=== PATIENT | female | born 1950 | race Caucasian/White ===

== ENCOUNTER 2024-03-31 05:35 | Inpatient (IN) | payer MEDICARE, OTHER, SELFPAY ==
[2024-03-31] VITALS (36 sets, daily range): BP systolic 120–209; BP diastolic 66–172; PULSE 56–87; RESP 12–25; TEMP 36.6; O2SAT 91–100; BMI 39.4
--- NOTE | ~2024-03-31 | MR_ITS ---
MRI of the brain Clinical History: TIA Technique: Axial and sagittal T1-weighted images were acquired. These were followed by axial T2-weigh ann, diffusion weighted, gradient, and FLAIR images. Following intravenous administration of 20 cc Mu ltiHance gadolinium, T1-weighted fat-sat imaging was performed in the axial and coronal planes. Findings: There is a small focal area of restricted diffusion at the posterior most aspect of the rig ht basal ganglia region, compatible small focal acute infarct. There are mild background chronic micr ovascular ischemic changes in the periventricular white matter. No intracranial hemorrhage. Ventricles and subarachnoid spaces are unremarkable. Orbits are unremarkable. Paranasal sinuses and m astoid air cells are clear. Major intracranial flow voids are intact. Sagittal midline structures are intact. Postcontrast images demonstrate possible small meningioma at the left frontal convexity measuring 7 m m. IMPRESSION: Small focal acute infarct at the posterior most aspect of the right basal ganglia region. Probable 7 mm left frontal convexity meningioma. Mild chronic microvascular ischemic changes. Reviewed, dictated and finalized at location M. NG HANGER SUPERVISOR IMPRESSION: Small focal acute infarct at the posterior most aspect of the right basal gangl ia region. Probable 7 mm left frontal convexity meningioma. Mild chronic microvascular ischemic changes.
--- NOTE | ~2024-03-31 | CT_ITS ---
CTA brain carotid Ordering provider: Marcus Castle MD History: . dizziness/tia . Comparison: None. Technique: CT angiogram head and neck was performed following timed intravenous injection of contrast . Thin slice axial images and reformatted coronal images were obtained. Three dimensional reformatted images of the brain were also obtained using a [employer] workstation. Radiation reduction technique ut ilized.The dose-length product was 1766.42 mGy-cm. 100 mL Omnipaque 350 was given IV. FINDINGS: HEAD: --ANTERIOR AND MIDDLE CEREBRAL ARTERIES AND BRANCHES: Normal caliber and contour. --INTERNAL CAROTID ARTERIES: Mild atheromatous disease but no significant stenosis. No occlusion. --BASILAR ARTERY AND BRANCHES: Normal caliber and contour. No atheromatous disease. --POSTERIOR CEREBRAL ARTERIES: Normal caliber and contour --POSTERIOR COMMUNICATING ARTERIES: Not visualized which is probably related to congenital absence or small size. --ANEURYSM: None visualized. --BRAIN: Normal. --BONES AND SUPERFICIAL SOFT TISSUES: Normal. --PARANASAL SINUSES AND MASTOIDS: Normal NECK: --RIGHT CERVICAL CAROTID SYSTEM: Normal caliber and contour. Percent stenosis per NASCET criteria is 0%. No carotid dissection. Otherwise, no significant atheromatous disease or stenosis of the cervica l carotid system. --LEFT CERVICAL CAROTID SYSTEM: Normal caliber and contour. Percent stenosis per NASCET criteria is 0%. No carotid dissection. Otherwise, no significant atheromatous disease or stenosis of the cervical carotid system. --VERTEBRAL ARTERIES: Slight narrowing in segment 3 is noted. Otherwise, Normal caliber and contour. --VISUALIZED AORTIC ARCH AND BRANCHING VESSELS: Mild atheromatous disease but no significant stenosis . --SOFT TISSUES: Normal. --CERVICAL SPINE: Age appropriate degenerative changes. IMPRESSION: 1. Normal CTA head and neck. Percent stenosis per NASCET criteria is 0%. 2. Very mild narrowing of the right vertebral artery segment 3. Reviewed, dictated and finalized at location A. OL COMMISSIONER
--- NOTE | ~2024-03-31 | XR_ITS ---
EXAMINATION: XR chest 1V DATE: 03/31/2024 06:59 INDICATION: Weakness. TECHNIQUE: A single frontal view of the chest was obtained. COMPARISON: Chest 2 views 10/03/2008 FINDINGS: There is no pneumonia, pleural effusion, or pneumothorax. Cardiomegaly is noted. IMPRESSION: 1. Cardiomegaly. Reviewed, dictated and finalized at location A. R SOFTENER SERVICE SUPERVISOR IMPRESSION: 1. Cardiomegaly.
--- NOTE | 2024-03-31 05:45 | ECG_ITS ---
Test Date: 2024-03-31 05:53:39 Measurements Intervals [place] Rate: 63 P: 0 VA: 0 QRS: 73 QRSD: 94 T: 102 QT: 416 QTc: 429 Interpretive Statements ATRIAL FIBRILLATION NONSPECIFIC T-WAVE ABNORMALITY ABNORMAL ECG Electronically Signed On 03-31-2024 10:50:21 FLIPPING MACHINE OPERATOR by Khoi Simpson M.D.
[2024-03-31 06:19] LABS: Basophils Percent Auto 0.4 % (0.2-1.2); Eosinophils Absolute Auto 0.1 K/mm3 (0-0.3); Eosinophils Percent Auto 1.7 % (0-4.4); Hematocrit 40.8 % (37.0-47.0); Hemoglobin 13.3 g/dL (12.0-15.0); Immature Granulocyte Absolute 0.01 K/mm3 (0.00-0.031); Immature Granulocyte Percent A 0.2 % (0-0.5); Lymphocytes Absolute Auto 1.05 K/mm3 (0.9-3.2); Lymphocytes Percent Auto 19.3 % (18.3-44.2); Mean Corpuscular HGB Conc 32.6 g/dl (32-36); Mean Corpuscular Hemoglobin 30.6 pg (26-34); Mean Corpuscular Volume 93.8 fl (80-100); Mean Platelet Volume 9.2 fl (7.4-10.4); Monocytes Absolute Auto 0.4 K/mm3 (0.1-0.6); Monocytes Percent Auto 7.5 % (2.6-8.5); Neutrophils Absolute Auto 3.9 K/mm3 (1.3-6.7); Neutrophils Percent Auto 70.9 % (45.5-73.1); Platelet Count Result 183 k/mm3 (150-375); Red Blood Count 4.35 M/mm3 (4.2-5.4); Red Cell Distribution Width 13.9 % (11.5-14.5); White Blood Count 5.4 K/mm3 (4.5-10.0)
[2024-03-31 06:30] LABS: Alanine Aminotransferase 19 U/L (6-35); Albumin Level 4.1 g/dL (3.5-5.1); Alkaline Phosphatase 66 U/L (38-126); Anion Gap 6 mmol/L (4-12); Aspartate Amino Transferase 25 U/L (14-36); Bilirubin,Total 1.1 mg/dL (0.2-1.3); Blood Urea Nitrogen 19 mg/dL (7-17); Calcium 9.7 mg/dL (8.4-10.2); Carbon Dioxide 32 mmol/L (22-30); Chloride 102 mmol/L (98-107); Estimated CRCL calculation 77 ml/min; Estimated Glomerular Filt Rate > 60; Glucose 121 mg/dL (65-110); Potassium 3.5 mmol/L (3.4-5.0); Sodium 140 mmol/L (137-145)
--- NOTE | 2024-03-31 10:39 | ED.GENADULT ---
HPI - General Adult General Chief complaint: Dizziness Stated complaint: unbalanced/vomiting around 2200 Time Seen by Provider: 03/31/24 09:03 History of Present Illness HPI narrative: Patient is a 74-year-old female who presents ER with dizziness. Began last night at 10:00 p.m. after using a rowing machine. She feels unsteady like she cannot walk straight. Symptoms have since resolved. No slurred speech. Reports compliance with home antihypertensive medication. EKG shows atrial fibrillation patient has no history of AFib. No history of previous CVA. Related Data Home Medications ?Medication ?Instructions ?Recorded ?Confirmed ?Last Taken ?Type aspirin 81 mg chewable tablet 81 mg PO DAILY 03/31/24 03/31/24 Unknown History latanoprost 0.005 % eye drops 1 drp EACH EYE QPM 03/31/24 03/31/24 03/30/24 History timolol maleate 0.5 % eye drops 1 drp EACH EYE QAM 03/31/24 03/31/24 03/30/24 History triamterene 37.5 1 cap PO .QD 03/31/24 03/31/24 03/30/24 History mg-hydrochlorothiazide 25 mg capsule Allergies Allergy/AdvReac Type Severity Reaction Status Date / Time PENCILLIN Allergy Mild Other Uncoded 03/31/24 17:14 Review of Systems Review of Systems: All systems reviewed & are unremarkable except as noted in HPI and below Constitutional: Constitutional: Reports no additional constitutional complaints ENT: Reports system reviewed and no additional complaints, except as documented Cardiovascular: Cardiovascular: Reports no additional cardiovascular complaints Respiratory: Respiratory: Reports no additional respiratory complaints Gastrointestinal: Gastrointestinal: Reports no additional gastrointestinal complaints Neurologic: Reports system reviewed and no additional complaints, except as documented [facility]LY [facility] Past Medical History Medical History (Updated 03/31/24 @ 19:51 by Marcus Castle MD) Dizziness Pneumonia Obesity Family History Family History Sibling Family history of diabetes mellitus in first degree relative Father Lung cancer Mother Heart disease Social History Social History Smoking packs per day: 1 Smoking cigarettes per day: 20.0 Smoking status: Former smoker Tobacco type: cigarettes Second hand tobacco smoke exposure: Yes Alcohol intake: current Substance use: never Do You Feel Safe in your Home?: Yes Lack of Transportation: No Lack of Food: Never True Current Housing: I Do Not Have Housing Concerned About Future Housing: No Difficulty Paying Gas/Electric Bills: No Difficulty Paying for Meds: No Currently Unemployed: No Education: Decline to Answer Difficulty w/ Childcare or Family Care: No Spiritual care concerns: No Exam Narrative: GENERAL: Well-appearing, well-nourished, and in no acute distress. HEAD: Normocephalic, atraumatic. EYES: PERRL and EOMI. ENT: Mucous membranes moist. NECK: Supple. CHEST: Clear to auscultation. No respiratory distress. HEART: Irregular irregular rate and rhythm. Normal peripheral pulses. ABDOMEN: Soft, nontender, nondistended. EXTREMITIES: Normal range of motion. No edema. SKIN: Warm, dry, no rash. NEURO: NIH stroke scale 0. No upper lower extremity drift. Normal finger-nose testing and [id number] testing. No facial droop. Clear speech without expressive aphasia. Alert and oriented x3. PSYCH: Normal mood and affect. Course Course Emergency Course: Suspect TIA with new AFib. Admit to hospitalist service. Neurology and Cardiology consulted. Patient given Lovenox for anticoagulation. No LVO. No acute bleed. Vital Signs Vital signs: Vital Signs Temperature 97.9 F 03/31/24 05:39 Pulse Rate 67 03/31/24 05:39 Respiratory Rate 17 03/31/24 05:39 Blood Pressure 186/86 H 03/31/24 05:39 Pulse Oximetry 98 03/31/24 05:39 Oxygen Delivery Room Air 03/31/24 05:39 Temperature 97.9 F 03/31/24 05:39 Pulse Rate 63 03/31/24 14:45 Respiratory Rate 16 03/31/24 14:45 Blood Pressure 178/80 H 03/31/24 14:31 Pulse Oximetry 95 03/31/24 14:45 Oxygen Delivery Room Air 03/31/24 17:52 Medical Decision Making Vital Signs Vital Signs: Vital Signs Temperature 97.9 F 03/31/24 05:39 Pulse Rate 67 03/31/24 05:39 Respiratory Rate 17 03/31/24 05:39 Blood Pressure 186/86 H 03/31/24 05:39 Pulse Oximetry 98 03/31/24 05:39 Oxygen Delivery Room Air 03/31/24 05:39 Temperature 97.9 F 03/31/24 05:39 Pulse Rate 63 03/31/24 14:45 Respiratory Rate 16 03/31/24 14:45 Blood Pressure 178/80 H 03/31/24 14:31 Pulse Oximetry 95 03/31/24 14:45 Oxygen Delivery Room Air 03/31/24 17:52 Lab Data 03/31/24 06:00 03/31/24 06:00 Labs: Lab Results 03/31/24 03/31/24 Range/Units 06:00 11:10 WBC 5.4 (4.5-10.0) K/mm3 RBC 4.35 (4.2-5.4) M/mm3 Hgb 13.3 (12.0-15.0) g/dL Hct 40.8 (37.0-47.0) % MCV 93.8 (80-100) fl MCH 30.6 (26-34) pg MCHC 32.6 (32-36) g/dl RDW 13.9 (11.5-14.5) % Plt Count 183 (150-375) k/mm3 MPV 9.2 (7.4-10.4) fl Immature Gran % (Auto) 0.2 (0-0.5) % Neut % (Auto) 70.9 (45.5-73.1) % Lymph % (Auto) 19.3 (18.3-44.2) % [place] % (Auto) 7.5 (2.6-8.5) % Eos % (Auto) 1.7 (0-4.4) % Baso % (Auto) 0.4 (0.2-1.2) % Lymph # (Auto) 1.05 (0.9-3.2) K/mm3 [place] # (Auto) 0.4 (0.1-0.6) K/mm3 Eos # (Auto) 0.1 (0-0.3) K/mm3 Baso # (Auto) 0.0 (0.0-0.1) K/mm3 Abs Immat Gran (auto) 0.01 (0.00-0.031) K/mm3 Absolute Neuts (auto) 3.9 (1.3-6.7) K/mm3 Absolute Nucleated RBC 0.000 (0.0-0.012) K/mm3 Nucleated RBC % 0.0 (0.0-0.2) % Sodium 140 (137-145) mmol/L Potassium 3.5 (3.4-5.0) mmol/L Chloride 102 (98-107) mmol/L Carbon Dioxide 32 H (22-30) mmol/L Anion Gap 6 (4-12) mmol/L BUN 19 H (7-17) mg/dL Creatinine 0.70 (0.7-1.0) mg/dL Estim Creat Clear Calc 77 ml/min Estimated GFR > 60 (59 - ) Glucose 121 H (65-110) mg/dL Calcium 9.7 (8.4-10.2) mg/dL Total Bilirubin 1.1 (0.2-1.3) mg/dL AST 25 (14-36) U/L ALT 19 (6-35) U/L Alkaline Phosphatase 66 (38-126) U/L Total Protein 7.0 (6.3-8.2) g/dL Albumin 4.1 (3.5-5.1) g/dL Urine Color Yellow (Yellow) Urine Appearance Cloudy H (Clear) Urine pH 7.0 (5.0-9.0) Ur Specific [place] 1.014 (1.001-1.035) Urine Protein Negative (Negative) mg/dL Urine Glucose (UA) Negative (Negative) mg/dL Urine Ketones 1+ H (Negative) mg/dL Ur Blood (Man) Negative (Negative) Urine Nitrate Negative (Negative) Urine Bilirubin Negative (Negative) Urine Urobilinogen 0.2 (<2.0) mg/dL Leukocyte Esterase Rfl Negative (Negative) MARZENA/UL Urine RBC 0-2 (0-2) /hpf Urine WBC 0-5 (0-3) /hpf Ur Squamous Epith Cells None seen (Few) /hpf Urine Bacteria None seen /hpf Urine Casts 0-2 Imaging Data Radiologist's impression: ITS Impressions Chest X-Ray 03/31/24 07:01 IMPRESSION: 1. Cardiomegaly. ECG Data EKG #1: ECG completion date: 03/31/24 ECG completion time: 05:53 EKG Interpretation: normal rate (63), non-specific ST changes, normal QRS, normal QT and NL axis Discharge Plan Discharge Clinical Impression: TIA (transient ischemic attack), Afib Patient Disposition: Still a Patient Condition: Stable Quality Stroke Scale Stroke Scale 1: 1a Level of consciousness: alert-0 1b Level of consciousness questions: answers both correctly-0 1c Level of consciousness commands: obeys both correctly-0 2 Best gaze: normal-0 3 Visual: no visual loss-0 4 Facial palsy: normal-0 5a Motor: left arm: no drift-0 5b Motor: right arm: no drift-0 6a Motor: left leg: no drift-0 6b Motor: right leg: no drift-0 7 Limb ataxia: absent-0 8 Sensory: normal-0 9 Best language: no aphasia-0 10 Dysarthria: normal-0 11 Extinction and inattention: no abnormality-0 Level:: 0
[2024-03-31] MEDS: TRIAMTERENE 37.5 MG/HCTZ 25 MG (MAXZIDE) TABLET 1 TAB PO (11:02)
[2024-03-31] MEDS: ENOXAPARIN 120 MG/0.8 ML SYRINGE 118 MG SUB-Q (11:03)
[2024-03-31 11:19] LABS: Add Urine Microscopic? YES; Appearance Urine Cloudy (Clear); Bacteria Urine None Seen /hpf; Bilirubin Urine Negative (Negative); Blood Urine Negative (Negative); Color Urine Yellow (Yellow); Glucose Urine UA Negative (Negative); Ketones Urine 1+ mg/dL (Negative); Leukocyte Esterase Ur Negative LEU/UL (Negative); Nitrate Urine Negative (Negative); Non Pathogenic Casts 0-2; Protein Urine Negative (Negative); RBC Urine 0-2 /hpf (0-2); Specific Grav Ur 1.014 (1.001-1.035); Squamous Epithelial Cell Urine None Seen /hpf (Few); Urobilinogen Urine 0.2 mg/dL (<2.0); WBC Urine 0-5 /hpf (0-3)
--- NOTE | 2024-03-31 12:44 | P.HP_ITS ---
H&P: HPI History of Present Illness Date/Time: 03/31/24 12:44 Chief Complaint: Dizziness Narrative: 74-year-old female past medical history of obesity presents the hospital with dizziness. Patient was working put at home when she became extremely dizzy and had trouble with her balance. She states that she has home hold onto batista while she was walking. She states that she checked her heart rate and blood pr essure last night she said her heart rate was 52. This morning she did not feel any better and still had trouble walking so she presents to the hospital. Laboratory work in the ED is within normal limits, chest x-ray no acute process, head CTA and neck negative for stroke. EKG shows atrial fibrillation at a rate of 63. Cardiology and Neurology consulted. Review of Systems Review of Systems: 12 systems were reviewed and are negativ e except for as per HPI. [facility] Past Medical History Medical History (Updated 03/31/24 @ 15:25 by Jessie George, JUMP IRON MACHINE PRESSER) Pneumonia Obesity Family History Family History (Updated 10/17/15 @ 23:19 by DOCTOR UNKNOWN) Sibling Family history of diabetes mellitus in first degree relative Social History Social History Alcohol intake: never Comments x3 Meds Home Medications and Allergies Allergies Allergy/AdvReac Type Severity Reaction Status Date / Time PENCILLIN Allergy Mild Other Uncoded 03/31/24 09:35 Vital Signs Vital Signs - 24 hr 03/31/24 05:39 03/31/24 09:11 03/31/24 11:09 Temperature 97.9 F Pulse Rate 67 70 67 Respiratory Rate 17 15 19 Blood Pressure 186/86 H 197/141 H 152/91 H Pulse Oximetry 98 99 99 Oxygen Delivery Room Air Exam Narrative: General: well appearing, appears stated age. HEENT: normocephalic, atraumatic. Mucous membranes moist. EOMI, PERRLA, b ilateral sclera anicteric, no conjunctival injection. Neck supple without JVD, lymphadenopathy, or bruit. Respiratory: clear to ascultation bilaterally. No rales/rhonic/wheezes. Cardiovascular: Irregularly rate and rhythm, normal S1-S2 upon ascultation. No murmurs, rubs, or clicks. PMI is nondisplaced, capillary refill less than 3 second. Abdomen: Soft, round, no pulsatile masses, nondistended and nontender. No rebound, no guarding. No CVA tenderness, no hepatosplenomegaly. Bowel sounds present to all four quadrants. No high pitch or tinkling sounds, resonant to percussion. Extremities: No cyanosis, clubbing, or edema present. Pulses are palpable 2/2. Active ROM to all four extremities. Neuro: Alert and orientated x 4. PERRLA. Cranial nerves 2-12 intact without focal deficit. Skin: Warm, dry, and intact, without rash, erythema, or lesion. Psych: pleasant, cooperative, normal speech, normal affect, no hallucinations, no dysarthia H&P: Results Labs Labs: Short CBC 03/31/24 Range/Units 06:00 WBC 5.4 (4.5-10.0) K/mm3 Hgb 13.3 (12.0-15.0) g/dL Hct 40.8 (37.0-47.0) % Plt Count 183 (150-375) k/mm3 BMP 03/31/24 06:00 Sodium 140 Potassium 3.5 Chloride 102 Carbon Dioxide 32 H BUN 19 H Creatinine 0.70 Glucose 121 H Calcium 9.7 Liver Function 03/31/24 Range/Units 06:00 Total Bilirubin 1.1 (0.2-1.3) mg/dL AST 25 (14-36) U/L ALT 19 (6-35) U/L Alkaline Phosphatase 66 (38-126) U/L Albumin 4.1 (3.5-5.1) g/dL Urine 03/31/24 Range/Units 11:10 Urine Color Yellow (Yellow) Urine Appearance Cloudy H (Clear) Urine pH 7.0 (5.0-9.0) Ur Specific [place] 1.014 (1.001-1.035) Urine Protein Negative (Negative) mg/dL Urine Glucose (UA) Negative (Negative) mg/dL Assessment and Plan Assessment and plan (1) Afib: Code(s): I48.91 - Unspecified atrial fibrillation Status: Acute Assessment and Plan: No history of AFib Rate controlled Cardiology consulted Telemetry monitoring Weight based Lovenox (2) TIA (transient ischemic attack): Code(s): G45.9 - Transient cerebral ischemic attack, unspecified Status: Acute Assessment and Plan: Possible TIA Neurology consulted MRI brain pending Weight based Lovenox Quality VTE Prophylaxis VTE prophylaxis: mechanical ordered and pharmacologic ordered Patient states that she does not take prescription medications only takes vitamins. Hospitalist MIPS Advance Care Plan I have confirmed that the patient's Advanced Care Plan is present, code status is documented, or surrogate decision maker is listed in patient medical record.: Yes Medication Reconciliation I have utilized all available resources to obtain, update and review the patients current medications (includes all prescriptions, OTC, herbals, cannabis, and nutritional supplements).: Yes
--- NOTE | 2024-03-31 15:14 | PC.NURSE ---
This patient, Allyson Gonsalves, was admitted to [facility] Surg Room 329-01 at 1514. Patient/family oriented to hospital policies and general routines including ID bracelet, bed and alarms, visiting hours, pain management, procedures, bathroom and other care routines, personal items, smoking policy, room service/diet, and visiting hours. Information on how to activate the Rapid Response Team has been discussed. Patient/Family are encouraged to report perceived risks to care and to ask questions if they do not understand what they are told or what they should do.
--- NOTE | 2024-03-31 17:19 | PC.NURSE ---
On 04/01/24, the KINDERGARTEN TUTOR, [Keisha Wilcox ], provided care and completed [facility] documentation on this patient. I have reviewed the KINDERGARTEN TUTOR's documentation and agree with the findings.
--- NOTE | 2024-03-31 18:16 | WPDNEURCNPN ---
Assessment and Plan Assessment and plan (1) Dizziness: Code(s): R42 - Dizziness and giddiness Status: Acute (2) Afib: Code(s): I48.91 - Unspecified atrial fibrillation Status: Acute Plan possibility of brainstem stroke with onset of atrial fibrillation leading to embolization could be a consideration. We should also check her serum lipid profile. Attention to atrial fibrillation as per the Cardiology on hospitalist Service. At present the patient is on Lovenox Consult date: 03/31/24 HPI: Allyson Gonsalves is a 74 year old female who presented to the hospital with onset of dizziness which started was was working on a rowing machine around 10 30 at night. She waited for the night and around 530 in the morning since coming to the hospital with her and during that time she vomited twice. She still feels as if his she is swimming in the air when she walks other than that she is overall doing better. No headache diplopia or difficulty swallowing. No weakness in upper lower limbs. She never had symptoms such as this in the past. She has been found to have atrial fibrillation. . Atrial fibrillation is of new onset. CT angiogram head and neck was performed which did not show any abnormalities. Review of Systems Constitutional: Constitutional: Denies chills, Denies fever(s) and Reports weight loss Comments: The patient has been on ketogenic diet for some time and he is trying to lose some weight Eyes: Eyes: Denies diplopia and Denies loss of vision ENT: Reports dizziness, Denies hearing loss and Denies tinnitus Cardiovascular: Cardiovascular: Denies chest pain, Denies syncope and Denies dyspnea Respiratory: Respiratory: Denies cough, Denies dyspnea and Denies wheezing Gastrointestinal: Gastrointestinal: Denies abdominal pain, Denies change in bowel habits and Denies vomiting Genitourinary: Genitourinary: Denies urinary incontinence Musculoskeletal: Musculoskeletal: Denies arthralgias and Denies joint swelling Integumentary/Breasts: Skin/Breast: Denies new lesions and Denies rash Neurologic: Reports as per HPI, Denies dizziness, Denies syncope and Denies loss of vision Psychiatric: Psychiatric: Denies anxiety and Denies depression Endocrine: Endocrine: Denies cold intolerance and Denies heat intolerance Hematologic/Lymphatic: Hematologic/Lymphatic: Denies easy bleeding and Denies easy bruising Allergic/Immunologic: Allergic/Immunologic: Denies no additional allergic/immunologic complaints and Denies wheezing [facility] Past Medical History Medical History (Updated 03/31/24 @ 18:20 by Zeyad Smith MD) Dizziness Pneumonia Obesity Family History Family History Sibling Family history of diabetes mellitus in first degree relative Father Lung cancer Mother Heart disease Social History Social History Smoking packs per day: 1 Smoking cigarettes per day: 20.0 Smoking status: Former smoker Tobacco type: cigarettes Second hand tobacco smoke exposure: Yes Alcohol intake: current Substance use: never Do You Feel Safe in your Home?: Yes Lack of Transportation: No Lack of Food: Never True Current Housing: I Do Not Have Housing Concerned About Future Housing: No Difficulty Paying Gas/Electric Bills: No Difficulty Paying for Meds: No Currently Unemployed: No Education: Decline to Answer Difficulty w/ Childcare or Family Care: No Spiritual care concerns: No Meds Home Medications and Allergies Home Medications ?Medication ?Instructions ?Recorded ?Confirmed ?Type latanoprost 0.005 % eye drops 1 drp EACH EYE QPM 03/31/24 03/31/24 History timolol maleate 0.5 % eye drops 1 drp EACH EYE QAM 03/31/24 03/31/24 History triamterene 37.5 1 cap PO .QD 03/31/24 03/31/24 History mg-hydrochlorothiazide 25 mg capsule Allergies Allergy/AdvReac Type Severity Reaction Status Date / Time PENCILLIN Allergy Mild Other Uncoded 03/31/24 17:14 Vital Signs Vital Signs - 24 hr 03/31/24 05:39 03/31/24 09:07 03/31/24 09:08 Temperature 97.9 F Pulse Rate 67 71 74 Respiratory Rate 17 15 20 Blood Pressure 186/86 H 191/172 H Pulse Oximetry 98 91 93 Oxygen Delivery Room Air 03/31/24 09:10 03/31/24 09:11 03/31/24 09:15 Temperature Pulse Rate 87 70 70 Respiratory Rate 20 15 25 H Blood Pressure 197/141 H 197/141 H Pulse Oximetry 96 99 96 Oxygen Delivery 03/31/24 09:16 03/31/24 09:30 03/31/24 10:03 Temperature Pulse Rate 69 63 82 Respiratory Rate 14 15 21 H Blood Pressure 209/96 H Pulse Oximetry 97 100 95 Oxygen Delivery 03/31/24 10:15 03/31/24 10:30 03/31/24 10:45 Temperature Pulse Rate 65 62 62 Respiratory Rate 13 13 14 Blood Pressure Pulse Oximetry 95 92 94 Oxygen Delivery 03/31/24 11:00 03/31/24 11:03 03/31/24 11:09 Temperature Pulse Rate 64 64 67 Respiratory Rate 19 15 19 Blood Pressure 152/91 H 152/91 H Pulse Oximetry 92 97 99 Oxygen Delivery 03/31/24 11:17 03/31/24 11:30 03/31/24 11:45 Temperature Pulse Rate 62 69 64 Respiratory Rate 14 15 14 Blood Pressure Pulse Oximetry 97 98 97 Oxygen Delivery 03/31/24 12:04 03/31/24 12:15 03/31/24 12:16 Temperature Pulse Rate 76 63 65 Respiratory Rate 16 13 18 Blood Pressure 120/67 151/100 H Pulse Oximetry 99 96 96 Oxygen Delivery 03/31/24 12:30 03/31/24 12:45 03/31/24 13:00 Temperature Pulse Rate 62 62 68 Respiratory Rate 16 12 12 Blood Pressure Pulse Oximetry 95 96 Oxygen Delivery 03/31/24 13:01 03/31/24 13:15 03/31/24 13:30 Temperature Pulse Rate 66 78 73 Respiratory Rate 19 16 13 Blood Pressure 183/90 H Pulse Oximetry 97 96 96 Oxygen Delivery 03/31/24 13:45 03/31/24 13:46 03/31/24 14:00 Temperature Pulse Rate 65 63 64 Respiratory Rate 13 18 13 Blood Pressure 136/112 H Pulse Oximetry 100 100 95 Oxygen Delivery 03/31/24 14:18 03/31/24 14:30 03/31/24 14:31 Temperature Pulse Rate 73 72 63 Respiratory Rate 16 17 17 Blood Pressure 178/80 H Pulse Oximetry 95 95 Oxygen Delivery 03/31/24 14:45 03/31/24 17:52 Temperature Pulse Rate 63 Respiratory Rate 16 Blood Pressure Pulse Oximetry 95 Oxygen Delivery Room Air Exam Const: General: no acute distress Orientation/consciousness: oriented to person, oriented to place and oriented to time HENMT: Head: normocephalic and atraumatic Ears: hearing grossly normal bilaterally and external ears normal Face/Nose/Sinus: Normal external nose present Mouth: Yes Normal oral and palatal mucosa present Eyes: General: appearance normal, both eyes and all related structures Eyelids: eyelids normal Conjunctivae: conjunctivae normal Pupils: Equal, round and reactive pupils present EOM: No Nystagmus present Neck: Neck: normal visual inspection Resp: Effort & Inspection: normal respiratory effort Skin: General skin exam: normal color and no rashes or lesions noted Neuro: General: oriented to person, oriented to place and oriented to time Cranial nerves: Yes CN's II-XII intact bilaterally, Yes Equal, round and reactive pupils present, Yes Bilaterally intact EOM present, Yes Nystagmus not present, Yes Normal facial strength present, Yes facial symmetry, Yes Midline tongue present, Yes Symmetric palate elevation present, Yes Normal hearing present, Yes Ability to bilaterally elevate shoulders present and No Nystagmus present Speech: normal speech Motor exam (neuro): 5/5 motor strength present throughout, Normal motor muscle tone present throughout and Motor abnormalities not present Sensory Exam: normal sensation Coordination: [id number] test normal Extrem: General: normal to inspection Psych: Appearance: grossly normal Mental Status: mental status grossly normal Affect: normal affect Attitude: cooperative Results Labs 03/31/24 06:00 03/31/24 06:00 Labs: Short CBC 03/31/24 Range/Units 06:00 WBC 5.4 (4.5-10.0) K/mm3 Hgb 13.3 (12.0-15.0) g/dL Hct 40.8 (37.0-47.0) % Plt Count 183 (150-375) k/mm3 BMP 03/31/24 06:00 Sodium 140 Potassium 3.5 Chloride 102 Carbon Dioxide 32 H BUN 19 H Creatinine 0.70 Glucose 121 H Calcium 9.7 Liver Function 03/31/24 Range/Units 06:00 Total Bilirubin 1.1 (0.2-1.3) mg/dL AST 25 (14-36) U/L ALT 19 (6-35) U/L Alkaline Phosphatase 66 (38-126) U/L Albumin 4.1 (3.5-5.1) g/dL Urine 03/31/24 Range/Units 11:10 Urine Color Yellow (Yellow) Urine Appearance Cloudy H (Clear) Urine pH 7.0 (5.0-9.0) Ur Specific [place] 1.014 (1.001-1.035) Urine Protein Negative (Negative) mg/dL Urine Glucose (UA) Negative (Negative) mg/dL
[2024-03-31 20:57] LABS: Cholesterol 245 mg/dL (0-200); HDL Direct 59 mg/dL; Triglycerides 76 mg/dL (<150)
[2024-03-31 21:27] LABS: LDL Cholesterol Direct 131 mg/dL
[2024-03-31] MEDS: LATANOPROST 0.005% OP SOLN 2.5 ML BTL 1 DROP EACH EYE (22:20)
[2024-04-01] VITALS (11 sets, daily range): BP systolic 149–166; BP diastolic 71–81; PULSE 49–70; RESP 14–18; TEMP 36.2–37.5; O2SAT 92–99
[2024-04-01] MEDS: ACETAMINOPHEN 325 MG TABLET 650 MG PO (05:42)
[2024-04-01 06:30] LABS: Basophils Percent Auto 0.6 % (0.2-1.2); Eosinophils Absolute Auto 0.1 K/mm3 (0-0.3); Eosinophils Percent Auto 1.7 % (0-4.4); Immature Granulocyte Absolute 0.01 K/mm3 (0.00-0.031); Immature Granulocyte Percent A 0.2 % (0-0.5); Lymphocytes Percent Auto 22.2 % (18.3-44.2); Mean Corpuscular HGB Conc 33.3 g/dl (32-36); Mean Corpuscular Hemoglobin 30.9 pg (26-34); Mean Corpuscular Volume 92.6 fl (80-100); Mean Platelet Volume 9.3 fl (7.4-10.4); Monocytes Absolute Auto 0.4 K/mm3 (0.1-0.6); Monocytes Percent Auto 7.6 % (2.6-8.5); Neutrophils Absolute Auto 3.7 K/mm3 (1.3-6.7); Neutrophils Percent Auto 67.7 % (45.5-73.1); Platelet Count Result 185 k/mm3 (150-375); Red Blood Count 4.21 M/mm3 (4.2-5.4); Red Cell Distribution Width 14.2 % (11.5-14.5); White Blood Count 5.4 K/mm3 (4.5-10.0)
[2024-04-01 06:55] LABS: Anion Gap 5 mmol/L (4-12); Blood Urea Nitrogen 10 mg/dL (7-17); Calcium 9.3 mg/dL (8.4-10.2); Carbon Dioxide 29 mmol/L (22-30); Chloride 104 mmol/L (98-107); Estimated CRCL calculation 100 ml/min; Estimated Glomerular Filt Rate > 60; Glucose 146 mg/dL (65-110); Potassium 3.1 mmol/L (3.4-5.0); Sodium 138 mmol/L (137-145)
[2024-04-01] MEDS: ASPIRIN 81 MG CHEWABLE TABLET PO (10:06)
[2024-04-01] MEDS: TIMOLOL MALEATE 0.5% OP SOLN 5 ML BOTTLE 1 DROP EACH EYE (10:07)
[2024-04-01] MEDS: POTASSIUM CHLORIDE 20 MEQ PACKET (FOR LIQUID) 40 MEQ PO (10:07)
[2024-04-01] MEDS: ENOXAPARIN 120 MG/0.8 ML SYRINGE 110 MG SUB-Q (10:07)
[2024-04-01] MEDS: POTASSIUM CHLORIDE INJ 40 MEQ in SODIUM CHLORIDE 0.9% IV 500 ML 130 MEQ IVPB (12:11)
--- NOTE | 2024-04-01 13:43 | P.PNIM_ITS ---
Progress Note: A&P Assessment and Plan (1) Afib: Code(s): I48.91 - Unspecified atrial fibrillation Status: Acute Assessment and Plan: new onset Afib rate controlled on Metoprolol Hypokalemia replaced Telemetry monitoring continue Metoprolol and full dose lovenox Cardiology consulted (2) TIA (transient ischemic attack): Code(s): G45.9 - Transient cerebral ischemic attack, unspecified Status: Acute Assessment and Plan: Possible TIA MRI brain, Lipid panel, A1c PT/OT/ST F/u investigation Neurology following DVT prophylaxis on full dose lovenox Subjective Date/time seen: 04/01/24 13:43 Interval history: Patient comfortable at bedside noted no hx of Afib Review of Systems Review of Systems: 12 systems were reviewed and are negativ e except for as per HPI. Exam Narrative: General: well appearing, appears stated age. HEENT: normocephalic, atraumatic. Mucous membranes moist. EOMI, PERRLA, bilateral sclera anicteric, no conjunctival injection. Neck supple without JVD, lymphadenopathy, or bruit. Respiratory: clear to ascultation bilaterally. No rales/rhonic/wheezes. Cardiovascular: Irregularly rate and rhythm, normal S1-S2 upon ascultation. No murmurs, rubs, or clicks. PMI is nondisplaced, capillary refill less than 3 second. Abdomen: Soft, round, no pulsatile masses, nondistended and nontender. No rebound, no guarding. No CVA tenderness, no hepatosplenomegaly. Bowel sounds present to all four quadrants. No high pitch or tinkling sounds, resonant to percussion. Extremities: No cyanosis, clubbing, or edema present. Pulses are palpable 2/2. Active ROM to all four extremities. Neuro: Alert and orientated x 4. PERRLA. Cranial nerves 2-12 intact without focal deficit. Skin: Warm, dry, and intact, without rash, erythema, or lesion. Psych: pleasant, cooperative, normal speech, normal affect, no hallucinations, no dysarthia Objective Data Vital Signs Vital Signs: Vital Signs - 24 hr 03/31/24 13:45 03/31/24 13:46 03/31/24 14:00 Temperature Pulse Rate 65 63 64 Respiratory Rate 13 18 13 Blood Pressure 136/112 H Pulse Oximetry 100 100 95 Oxygen Delivery 03/31/24 14:18 03/31/24 14:30 03/31/24 14:31 Temperature Pulse Rate 73 72 63 Respiratory Rate 16 17 17 Blood Pressure 178/80 H Pulse Oximetry 95 95 Oxygen Delivery 03/31/24 14:45 03/31/24 17:52 03/31/24 20:00 Temperature Pulse Rate 63 Respiratory Rate 16 Blood Pressure Pulse Oximetry 95 Oxygen Delivery Room Air Room Air 03/31/24 20:00 03/31/24 20:12 04/01/24 00:00 Temperature 97.8 F Pulse Rate 56 L 62 68 Respiratory Rate 20 Blood Pressure 140/66 Pulse Oximetry 98 Oxygen Delivery 04/01/24 00:41 04/01/24 04:00 04/01/24 05:41 Temperature 99.5 F 97.4 F L Pulse Rate 61 56 L 61 Respiratory Rate 18 18 Blood Pressure 159/81 H 151/74 H Pulse Oximetry 98 97 Oxygen Delivery 04/01/24 08:49 04/01/24 12:45 Temperature 97.3 F L 98.4 F Pulse Rate 63 60 Respiratory Rate 17 17 Blood Pressure 149/71 H 164/77 H Pulse Oximetry 95 92 Oxygen Delivery Intake/Output Intake/Output: Intake & Output 03/29/24 03/30/24 03/31/24 04/01/24 23:59 23:59 23:59 23:59 Intake Total 990 1400 Balance 990 1400 Meds/Results Medications: Active Medications Generic Name Dose Route Start Last Admin Trade Name Freq PRN Reason Stop Dose Admin Acetaminophen 650 mg 03/31/24 12:19 04/01/24 05:42 Acetaminophen 325 Mg Tablet PO 650 mg Q4H PRN Administration Mild Pain (1-3) or Fever Hydrocodone Bitart/Acetaminophen 1 tab 03/31/24 12:19 Hydrocodone/Acetaminophen (*Crx) 5-325 Mg Tablet PO Q4H PRN Pain Rated 4-6 Aspirin 81 mg 04/01/24 08:00 04/01/24 10:06 Aspirin 81 Mg Chewable Tablet PO 81 mg DAILY@0800 [facility] Administration Enoxaparin Sodium 110 mg 04/01/24 09:00 04/01/24 10:07 Enoxaparin 120 Mg/0.8 Ml Syringe SUB-Q 110 mg DAILY [facility] Administration Potassium Chloride 40 meq/ 520 mls @ 130 mls/hr 04/01/24 09:45 04/01/24 12:11 Sodium Chloride IVPB 04/01/24 13:44 130 mls/hr ONCE ONE Administration Latanoprost 1 drop 03/31/24 21:35 03/31/24 22:20 Latanoprost 0.005% Op Soln 2.5 Ml Btl EACH EYE 1 drop [facility]HS [facility] Administration Ondansetron HCl 4 mg 03/31/24 12:19 Ondansetron Inj 4 Mg/2 Ml Vial IV PUSH Q4H PRN Nausea Perflutren Lipid Microsphere 0 ml 04/01/24 13:04 Perflutren Lipid Microspheres 1.5 Ml Vial Diluted To 10 Ml Total Volume IV PUSH 04/04/24 13:04 ONCE PRN adequate visualization Protocol Timolol Maleate 1 drop 04/01/24 09:00 04/01/24 10:07 Timolol Maleate 0.5% Op Soln 5 Ml Bottle EACH EYE 1 drop [facility] Administration Radiology Results: ITS Impressions Chest X-Ray 03/31/24 07:01 IMPRESSION: 1. Cardiomegaly. Head/Neck CTA 03/31/24 13:55 IMPRESSION: 1. Normal CTA head and neck. Percent stenosis per NASCET criteria is 0%. 2. Very mild narrowing of the right vertebral artery segment 3. Labs Labs: Laboratory Results - last 24 hr 03/31/24 04/01/24 04/01/24 06:00 06:05 06:08 WBC 5.4 RBC 4.21 Hgb 13.0 Hct 39.0 MCV 92.6 MCH 30.9 MCHC 33.3 RDW 14.2 Plt Count 185 MPV 9.3 Immature Gran % (Auto) 0.2 Neut % (Auto) 67.7 Lymph % (Auto) 22.2 Villalba % (Auto) 7.6 Eos % (Auto) 1.7 Baso % (Auto) 0.6 Lymph # (Auto) 1.20 Villalba # (Auto) 0.4 Eos # (Auto) 0.1 Baso # (Auto) 0.0 Abs Immat Gran (auto) 0.01 Absolute Neuts (auto) 3.7 Absolute Nucleated RBC 0.000 Nucleated RBC % 0.0 Sodium 138 Potassium 3.1 L Chloride 104 Carbon Dioxide 29 Anion Gap 5 BUN 10 D Creatinine 0.51 L Estim Creat Clear Calc 100 Estimated GFR > 60 Glucose 146 H Calcium 9.3 Magnesium 2.0 Triglycerides 76 Cholesterol 245 H LDL Cholesterol Direct 131 HDL Direct 59 Quality VTE Prophylaxis VTE prophylaxis: mechanical ordered and pharmacologic ordered
[2024-04-01 14:04] LABS: Hemoglobin A1C 5.6 % (<5.7)
--- NOTE | 2024-04-01 15:11 | P.CONCA_ITS ---
Assessment and Plan Assessment and plan (1) TIA (transient ischemic attack): Code(s): G45.9 - Transient cerebral ischemic attack, unspecified Status: Acute Assessment and Plan: New diagnosis. Symptoms predominantly resolved. Likely from atrial fibrillation (2) Afib: Code(s): I48.91 - Unspecified atrial fibrillation Status: Acute Assessment and Plan: New diagnosis. She has a controlled ventricular response or even slow. This tells me she had has some degree of conduction system disease. She does not need a beta-kaylyn. 2D echocardiogram with Doppler. Q will check a nocturnal oxygen study special given her snoring history. Replace potassium. Thyroid is normal. Eventual outpatient stress test. She does need anticoagulant. Would use Xarelto 20 mg daily if okay with Neurology. She is currently receiving full-dose enoxaparin. Will discontinue enoxaparin and will also stop her aspirin since we are going to be using anticoagulation unless otherwise directed by Neurology. She has a chads Vasc score of 5 and probably 6. I did talk to her about bleeding risk and she verbalized understanding and is in agreement (3) Dizziness: Code(s): R42 - Dizziness and giddiness Status: Acute Assessment and Plan: Probably a TIA from AFib (4) Morbid obesity: Code(s): E66.01 - Morbid (severe) obesity due to excess calories Status: Acute Assessment and Plan: Dietary and lifestyle modifications for weight loss (5) Hypokalemia: Code(s): E87.6 - Hypokalemia Status: Acute Assessment and Plan: Potassium being replaced with 40 mEq potassium chloride x1 (6) Hypertension: Code(s): I10 - Essential (primary) hypertension Status: Acute Assessment and Plan: Blood pressure is elevated. Would not tolerate a beta-kaylyn given heart rate but will likely add losartan but a certain degree of permissive hypertension will be allowed given TIA (7) Hyperlipidemia: Code(s): E78.5 - Hyperlipidemia, unspecified Status: Acute Assessment and Plan: LDL is elevated. Given her TIA history, I do think she should be on a statin. Will add atorvastatin 20 mg daily History of Present Illness History of Present Illness Consult date/time: 04/01/24 15:11 Requesting physician: Marcus Castle MD Consult reason: atrial fibrillation Reason For Visit: new onset afib, TIA Narrative: Date of service 04/01/2024 Requesting provider: Dr. Castle Reason consultation: Atrial fibrillation History patient is a 74-year-old female without known previous cardiac history. She presented the hospital because of dizziness. She was working out on her [place] and got up. She felt very off balance and had some nausea and vomited. She states she could walk straight and this persisted for about 5 hours into she came to the hospital. She was found to be in atrial fibrillation with controlled ventricular response. This is a new diagnosis for her. She denies any shortness of breath, syncope, presyncope, paroxysmal nocturnal dyspnea, orthopnea. No chest pain with exertion. She does have some dependent edema by the end of the day. It is thought that the patient has had a TIA. Her symptoms of predominantly resolved to this point. Neurology has seen her. Echo is pending. CTA of head and neck is unremarkable. MRI is pending. Review of Systems 2 Review of Systems: All systems reviewed & are unremarkable except as noted in HPI and below Constitutional: Constitutional: Denies body ache(s) Eyes: Eyes: Denies blurry vision ENT: Denies Normal hearing present Cardiovascular: Cardiovascular: Reports pedal edema Respiratory: Respiratory: Denies hemoptysis Gastrointestinal: Gastrointestinal: Denies abdominal pain Genitourinary: Genitourinary: Denies hematuria Musculoskeletal: Musculoskeletal: Denies myalgias Integumentary/Breasts: Skin/Breast: Denies unusual bruising Neurologic: Denies Abnormal speech present Psychiatric: Psychiatric: Denies behavioral changes Endocrine: Endocrine: Denies excessive sweating Hematologic/Lymphatic: Hematologic/Lymphatic: Denies easy bleeding Allergic/Immunologic: Allergic/Immunologic: Denies GI upset with certain foods PMFSH Past Medical History Medical History (Updated 04/01/24 @ 15:16 by Khoi Simpson MD) Dizziness Pneumonia Obesity Family History Family History Sibling Family history of diabetes mellitus in first degree relative Father Lung cancer Mother Heart disease Social History Social History Smoking packs per day: 1 Smoking cigarettes per day: 20.0 Smoking status: Former smoker Tobacco type: cigarettes Second hand tobacco smoke exposure: Yes Alcohol intake: current Substance use: never Do You Feel Safe in your Home?: Yes Lack of Transportation: No Lack of Food: Never True Current Housing: I Do Not Have Housing Concerned About Future Housing: No Difficulty Paying Gas/Electric Bills: No Difficulty Paying for Meds: No Currently Unemployed: No Education: Decline to Answer Difficulty w/ Childcare or Family Care: No Spiritual care concerns: No Meds Home Medications and Allergies Home Medications ?Medication ?Instructions ?Recorded ?Confirmed ?Type aspirin 81 mg chewable tablet 81 mg PO DAILY 03/31/24 03/31/24 History latanoprost 0.005 % eye drops 1 drp EACH EYE QPM 03/31/24 03/31/24 History timolol maleate 0.5 % eye drops 1 drp EACH EYE QAM 03/31/24 03/31/24 History triamterene 37.5 1 cap PO .QD 03/31/24 03/31/24 History mg-hydrochlorothiazide 25 mg capsule Allergies Allergy/AdvReac Type Severity Reaction Status Date / Time PENCILLIN Allergy Mild Other Uncoded 03/31/24 17:14 Vital Signs Vital Signs - 24 hr 03/31/24 17:52 03/31/24 20:00 03/31/24 20:00 Temperature Pulse Rate 56 L Respiratory Rate Blood Pressure Pulse Oximetry Oxygen Delivery Room Air Room Air 03/31/24 20:12 04/01/24 00:00 04/01/24 00:41 Temperature 36.6 C 37.5 C Pulse Rate 62 68 61 Respiratory Rate 20 18 Blood Pressure 140/66 159/81 H Pulse Oximetry 98 98 Oxygen Delivery 04/01/24 04:00 04/01/24 05:41 04/01/24 08:49 Temperature 36.3 C L 36.3 C L Pulse Rate 56 L 61 63 Respiratory Rate 18 17 Blood Pressure 151/74 H 149/71 H Pulse Oximetry 97 95 Oxygen Delivery 04/01/24 12:00 04/01/24 12:45 Temperature 36.9 C Pulse Rate 70 60 Respiratory Rate 17 Blood Pressure 164/77 H Pulse Oximetry 92 Oxygen Delivery Exam 2 Narrative: Alert oriented appears stated age Const: General: comfortable and no acute distress HENMT: Face/Nose/Sinus: Normal nares present Mouth: Yes moist mucous membranes Eyes: General: appearance normal, both eyes and all related structures S clera: sclerae normal Neck: Neck: supple and no JVD Chest: Other: No reproducible chest wall pain to palpation Resp: Effort & Inspection: normal respiratory effort Auscultation: clear to auscultation bilaterally Cardio: Rate: regular rate Rhythm: abnormal rhythm irregularly irregular Heart sounds: no murmurs GI: Inspection: non-distended GI Palp: Yes Soft to palpation A uscultation: normal bowel sounds Skin: General skin exam: normal color and no rashes or lesions noted Neuro: General: gait normal Speech: normal speech Extrem: General: normal to inspection Psych: Mental Status: mental status grossly normal Affect: normal affect Results Labs and Meds 04/01/24 06:08 04/01/24 06:08 Lab results: Lipids 03/31/24 Range/Units 06:00 Triglycerides 76 (<150) mg/dL Cholesterol 245 H (0-200) mg/dL CBC 04/01/24 Range/Units 06:08 WBC 5.4 (4.5-10.0) K/mm3 RBC 4.21 (4.2-5.4) M/mm3 Hgb 13.0 (12.0-15.0) g/dL Hct 39.0 (37.0-47.0) % Plt Count 185 (150-375) k/mm3 Lymph # (Auto) 1.20 (0.9-3.2) K/mm3 Keith # (Auto) 0.4 (0.1-0.6) K/mm3 Eos # (Auto) 0.1 (0-0.3) K/mm3 Baso # (Auto) 0.0 (0.0-0.1) K/mm3 Comprehensive Metabolic Panel 04/01/24 Range/Units 06:08 Sodium 138 (137-145) mmol/L Potassium 3.1 L (3.4-5.0) mmol/L Chloride 104 (98-107) mmol/L Carbon Dioxide 29 (22-30) mmol/L BUN 10 D (7-17) mg/dL Creatinine 0.51 L (0.7-1.0) mg/dL Glucose 146 H (65-110) mg/dL Calcium 9.3 (8.4-10.2) mg/dL Intake and Output 03/31/24 04/01/24 04/01/24 23:59 07:59 15:59 Intake Total 990 800 600 Balance 990 800 600 Intake: Oral 990 800 600 Other: # Unmeasured Voids 3 2 Number of Bowel Movements Today 1 EKG is personally reviewed and interpreted showing atrial fibrillation with nonspecific T-wave abnormality
[2024-04-01] MEDS: LATANOPROST 0.005% OP SOLN 2.5 ML BTL 1 DROP EACH EYE (20:05)
[2024-04-02] VITALS (9 sets, daily range): BP systolic 141–157; BP diastolic 51–94; PULSE 49–104; RESP 14–18; TEMP 36.3–37.1; O2SAT 93–99
--- NOTE | 2024-04-02 | ECHO_ITS ---
Patient Info Name: Allyson Gonsalves Age: 74 years : 1950 Gender: Female Ht: 66 in Wt: 244 lbs BSA: 2.32 m2 HR: 55 bpm BP: 141 / 51 mmHg Technical Quality: Poor Exam Date: 04/02/2024 4:04 PM Exam Location: Echo Lab Patient Status: Inpatient Admit Date: 03/31/2024 Staff Ordering Physician: Josse Chao MD Health Safety Specialist: Libra Mathew RDCS Attending Provider: Josse Chao MD Exam Type: CA echo dop color flow w con Study Info Indications I48.1 - Persistent atrial fibrillation Complete two-dimensional, color flow and Doppler transthoracic echocardiogram is performed with contrast to opacify the left ventricle and to improve the deliniation of the left ventricle endocardial borders. Contrast/Agitated Saline Contrast/Ag. Saline: Definity Amount: 3.00 ml Administered By: Libra Mathew RDCS Existing IV Access: Yes Reason for Poor Study: patient body habitus Summary 1. Left ventricular systolic function is normal, estimated at 65-70%. 2. There is mildly increased left ventricular wall thickness. 3. Left atrial chamber dimension is mildly enlarged. 4. Right atrial chamber dimension is moderately enlarged. 5. There is mild mitral valve regurgitation. 6. The mitral valve annulus is mildly calcified. 7. There is mild to moderate tricuspid valve regurgitation. 8. Moderate pulmonary hypertension, estimated pulmonary arterial systolic pressure is 49 mmHg. Left Ventricle Left ventricular chamber dimension is normal. Left ventricular systolic function is normal, estimated at 65-70%. There is mildly increased left ventricular wall thickness. Left ventricular septal wall motion is normal. The left ventricular diastolic function is abnormal. Right Ventricle Right ventricular chamber dimension is normal. Right ventricular systolic function is normal. Left Atria Left atrial chamber dimension is mildly enlarged. Right Atria Right atrial chamber dimension is moderately enlarged. Atrial Septum Intact interatrial septum visualized by color flow imaging. Aortic Valve The aortic valve is trileaflet. There is no aortic valve sclerosis. There is no aortic valve stenosis. There is no aortic valve regurgitation. Pulmonic Valve The pulmonic valve is normal. There is no pulmonic valve stenosis. There is no pulmonic regurgitation. Mitral Valve The mitral valve has normal leaflets. There is no mitral valve stenosis. There is mild mitral valve regurgitation. There is no mitral valve calcification. The mitral valve annulus is mildly calcified. Tricuspid Valve The tricuspid valve leaflets are normal. There is no significant tricuspid valve stenosis. There is mild to moderate tricuspid valve regurgitation. Moderate pulmonary hypertension, estimated pulmonary arterial systolic pressure is 49 mmHg. Pericardium/Pleural The pericardium appears normal. There is no pericardial effusion. Inferior Vena Cava Normal inferior vena cava with <50% collapse upon inspiration consistent with Empty right atrial pressure, 10 mmHg. Aorta The aortic root size at the sinus of Valsalva is normal. The prox ascending aorta size is normal. Left Ventricular Outflow Tract Name Value Normal LVOT 2D LVOT Diameter 2.05 cm LVOT Doppler LVOT Peak Gradient 4 mmHg LVOT Mean Gradient 2 mmHg LVOT VTI 28.23 cm LVOT VTI/AV VTI Ratio 1.03 LVOT Stroke Volume 92.94 ml LVOT CO 5.59 l/min LVOT CI 2.41 L/min/m2 Pulmonic Valve Name Value Normal RVOT Doppler RVOT Peak Gradient 3 mmHg PV Doppler PV Peak Gradient 4 mmHg Mitral Valve Name Value Normal MV Doppler MV Decel Hickman 1,061.80 cm/s2 MV PHT 0 s MV Area (PHT) 5.67 cm2 4.00-5.00 MV Diastolic Function MV E Peak Velocity 142.16 cm/s MV A Peak Velocity 0.72 cm/s MV E/A 196.20 MV Decel Time 0 s Tricuspid Valve Name Value Normal TV Regurgitation Doppler TR Peak Velocity 311.74 cm/s TR Peak Gradient 31 mmHg Estimated PAP/RSVP RA Pressure 10 mmHg <=5 PA Systolic Pressure 49 mmHg <36 RV Systolic Pressure 49 mmHg <36 Aorta Name Value Normal Ascending Aorta Ao Root Diameter (MM) 3.49 cm Ao Root Diam Index (MM) 1.50 cm/m2 Aortic Valve Name Value Normal AV Doppler AV Peak Velocity 121.17 cm/s AV Peak Gradient 5 mmHg AV Mean Gradient 3 mmHg AV VTI 27.47 cm AV Area (Cont Eq VTI) 3.38 cm2 >=3.00 AV Area (Cont Eq Gerard) 2.96 cm2 AV Regurgitation 2D LVOT Area 3.29 cm2 Ventricles Name Value Normal LV Dimensions 2D/MM IVS Diastolic Thickness (2D) 1.27 cm 0.60-1.00 IVS Diastole Thickness (MM) 1.27 cm 0.60-0.90 LVID Diastole (2D) 5.21 cm 3.80-5.20 LVID Diastole (MM) 6.33 cm 3.80-5.20 LVIW Diastolic Thickness (2D) 1.31 cm 0.60-0.90 LVIW Diastolic Thickness (MM) 1.10 cm 0.60-0.90 LVID Systole (2D) 2.86 cm 2.20-3.50 LVID Systole (MM) 3.70 cm 2.20-3.50 LVOT Diameter 2.05 cm LV Mass (2D Cubed) 274.48 g 67.00-162.00 LV Mass Index (2D Cubed) 0.01 g/cm2 0.00-0.01 Relative Wall Thickness (2D) 0.50 LV Mass (MM Cubed) 336.27 g 67.00-162.00 LV Mass Index (MM Cubed) 0.01 g/cm2 0.00-0.01 Relative Wall Thickness (MM) 0.35 LV Fractional Shortening/Ejection Fraction 2D/MM LV Fractional Shortening (2D) 45 % 27-45 LV Fractional Shortening (MM) 42 % 27-45 LV EF (MM Teicholz) 72 % 54-74 LV EF (2D Teicholz) 76 % 54-74 LV Diastolic Volume (4C MOD) 141.01 ml LV EF (4C MOD) 62 % LV Diastolic Volume (2C MOD) 160.53 ml LV EF (2C MOD) 76 % LV Diastolic Volume (BP MOD) 154.04 ml 46.00-106.00 LV Diastolic Volume Index (BP MOD) 0.07 l/m2 0.03-0.06 LV Systolic Volume (BP MOD) 45.50 ml 14.00-42.00 LV Systolic Volume Index (BP MOD) 0.02 l/m2 0.01-0.02 LV EF (BP MOD) 70 % 54-74 LV Diastolic Length (4C) 7.36 cm LV Systolic Length (4C) 5.51 cm LV Stroke Volume (4C MOD) 87.22 ml Atria Name Value Normal LA Dimensions LA Dimension (MM) 4.83 cm 2.70-3.80 LA Volume (4C A-L) 105.55 ml LA Volume (BP A-L) 142.01 ml RA Dimensions RA Area (4C) 21.69 cm2 <=18.00 Report Signatures
[2024-04-02] MEDS: ACETAMINOPHEN 325 MG TABLET 650 MG PO (00:35)
--- NOTE | 2024-04-02 09:15 | P.PNIM_ITS ---
Progress Note: A&P Assessment and Plan (1) Afib: Code(s): I48.91 - Unspecified atrial fibrillation Status: Acute Assessment and Plan: new onset Afib rate controlled on Metoprolol Hypokalemia replaced Telemetry monitoring continue Metoprolol and DC lovenox Started Xarelto 20 mg p.o. q.d. Cardiology consulted (2) TIA (transient ischemic attack): Code(s): G45.9 - Transient cerebral ischemic attack, unspecified Status: Acute Assessment and Plan: Possible TIA MRI brain, Lipid panel, A1c PT/OT/ST F/u investigation Neurology following DVT prophylaxis on full dose lovenox Subjective Date/time seen: 04/02/24 09:15 Interval history: Patient underwent a brain MRI today which shows small focal acute infarct in the posterior most aspect of the right basal ganglion region, probable 7 mm left frontal convexity meningioma, mild chronic microvascular ischemic changes. Discussed with neurologist who who agrees to start the Xarelto 20 mg from tomorrow. Patient received her last dosage of therapeutic Lovenox today PE Review of Systems Review of Systems: 12 systems were reviewed and are negativ e except for as per HPI. Exam Narrative: General: well appearing, appears stated age. HEENT: normocephalic, atraumatic. Mucous membranes moist. EOMI, PERRLA, bilateral sclera anicteric, no conjunctival injection. Neck supple without JVD, lymphadenopathy, or bruit. Respiratory: clear to ascultation bilaterally. No rales/rhonic/wheezes. Cardiovascular: Irregularly rate and rhythm, normal S1-S2 upon ascultation. No murmurs, rubs, or clicks. PMI is nondisplaced, capillary refill less than 3 second. Abdomen: Soft, round, no pulsatile masses, nondistended and nontender. No rebound, no guarding. No CVA tenderness, no hepatosplenomegaly. Bowel sounds present to all four quadrants. No high pitch or tinkling sounds, resonant to percussion. Extremities: No cyanosis, clubbing, or edema present. Pulses are palpable 2/2. Active ROM to all four extremities. Neuro: Alert and orientated x 4. PERRLA. Cranial nerves 2-12 intact without focal deficit. Skin: Warm, dry, and intact, without rash, erythema, or lesion. Psych: pleasant, cooperative, normal speech, normal affect, no hallucinations, no dysarthia Objective Data Vital Signs Vital Signs: Vital Signs - 24 hr 04/01/24 12:00 04/01/24 12:45 04/01/24 16:00 Temperature 98.4 F Pulse Rate 70 60 56 L Respiratory Rate 17 Blood Pressure 164/77 H Pulse Oximetry 92 Oxygen Delivery Fraction of Inspired Oxygen 04/01/24 17:14 04/01/24 20:00 04/01/24 20:00 Temperature 97.2 F L 97.6 F Pulse Rate 57 L 62 Respiratory Rate 16 14 Blood Pressure 166/75 H 165/72 H Pulse Oximetry 99 97 Oxygen Delivery Room Air Fraction of Inspired Oxygen 04/01/24 20:00 04/01/24 22:45 04/02/24 00:00 Temperature 98.1 F Pulse Rate 49 L 55 L 69 Respiratory Rate 18 Blood Pressure 157/79 H Pulse Oximetry 97 98 Oxygen Delivery Room Air Fraction of Inspired Oxygen 21 04/02/24 00:00 04/02/24 04:00 04/02/24 04:00 Temperature 97.3 F L Pulse Rate 49 L 61 62 Respiratory Rate 16 Blood Pressure 141/51 H Pulse Oximetry 94 Oxygen Delivery Fraction of Inspired Oxygen 04/02/24 08:41 Temperature 98.0 F Pulse Rate 51 L Respiratory Rate 16 Blood Pressure 154/64 H Pulse Oximetry 93 Oxygen Delivery Fraction of Inspired Oxygen Intake/Output Intake/Output: Intake & Output 03/30/24 03/31/24 04/01/24 04/02/24 23:59 23:59 23:59 23:59 Intake Total 990 2710 350 Balance 990 2710 350 Meds/Results Medications: Active Medications Generic Name Dose Route Start Last Admin Trade Name Freq PRN Reason Stop Dose Admin Acetaminophen 650 mg 03/31/24 12:19 04/02/24 00:35 Acetaminophen 325 Mg Tablet PO 650 mg Q4H PRN Administration Mild Pain (1-3) or Fever Hydrocodone Bitart/Acetaminophen 1 tab 03/31/24 12:19 Hydrocodone/Acetaminophen (*Crx) 5-325 Mg Tablet PO Q4H PRN Pain Rated 4-6 Aspirin 81 mg 04/01/24 08:00 04/01/24 10:06 Aspirin 81 Mg Chewable Tablet PO 81 mg DAILY@0800 [facility] Administration Atorvastatin Calcium 20 mg 04/02/24 09:00 Atorvastatin 20 Mg Tablet PO DAILY [facility] Enoxaparin Sodium 110 mg 04/01/24 09:00 04/01/24 10:07 Enoxaparin 120 Mg/0.8 Ml Syringe SUB-Q 110 mg DAILY [facility] Administration Latanoprost 1 drop 03/31/24 21:35 04/01/24 20:05 Latanoprost 0.005% Op Soln 2.5 Ml Btl EACH EYE 1 drop QHS [facility] Administration Ondansetron HCl 4 mg 03/31/24 12:19 Ondansetron Inj 4 Mg/2 Ml Vial IV PUSH Q4H PRN Nausea Perflutren Lipid Microsphere 0 ml 04/01/24 13:04 Perflutren Lipid Microspheres 1.5 Ml Vial Diluted To 10 Ml Total Volume IV PUSH 04/04/24 13:04 ONCE PRN adequate visualization Protocol Timolol Maleate 1 drop 04/01/24 09:00 04/01/24 10:07 Timolol Maleate 0.5% Op Soln 5 Ml Bottle EACH EYE 1 drop QAM [facility] Administration Radiology Results: ITS Impressions Chest X-Ray 03/31/24 07:01 IMPRESSION: 1. Cardiomegaly. Head/Neck CTA 03/31/24 13:55 IMPRESSION: 1. Normal CTA head and neck. Percent stenosis per NASCET criteria is 0%. 2. Very mild narrowing of the right vertebral artery segment 3. Brain MRI 04/02/24 06:25 IMPRESSION: Small focal acute infarct at the posterior most aspect of the right basal ganglia region. Probable 7 mm left frontal convexity meningioma. Mild chronic microvascular ischemic changes. Labs Labs: Laboratory Results - last 24 hr 04/01/24 04/01/24 06:05 06:06 Hemoglobin A1c 5.6 Magnesium 2.0 TSH (Reflex) 1.940 Hospitalist [facility] Advance Care Plan I have confirmed that the patient's Advanced Care Plan is present, code status is documented, or surrogate decision maker is listed in patient medical record.: Yes Medication Reconciliation I have utilized all available resources to obtain, update and review the patients current medications (includes all prescriptions, OTC, herbals, cannabis, and nutritional supplements).: Yes
[2024-04-02] MEDS: ASPIRIN 81 MG CHEWABLE TABLET PO (09:30)
[2024-04-02] MEDS: ATORVASTATIN 20 MG TABLET PO (09:30)
[2024-04-02] MEDS: ENOXAPARIN 120 MG/0.8 ML SYRINGE 110 MG SUB-Q (09:34)
[2024-04-02] MEDS: TIMOLOL MALEATE 0.5% OP SOLN 5 ML BOTTLE 1 DROP EACH EYE (09:35)
[2024-04-02 11:11] LABS: Hematocrit 39.8 % (37.0-47.0); Hemoglobin 13.2 g/dL (12.0-15.0); Mean Corpuscular HGB Conc 33.2 g/dl (32-36); Mean Corpuscular Hemoglobin 31.1 pg (26-34); Mean Corpuscular Volume 93.6 fl (80-100); Mean Platelet Volume 9.2 fl (7.4-10.4); Platelet Count Result 190 k/mm3 (150-375); Red Blood Count 4.25 M/mm3 (4.2-5.4); Red Cell Distribution Width 14.3 % (11.5-14.5); White Blood Count 5.4 K/mm3 (4.5-10.0)
[2024-04-02 11:21] LABS: Alanine Aminotransferase 18 U/L (6-35); Albumin Level 3.7 g/dL (3.5-5.1); Alkaline Phosphatase 58 U/L (38-126); Anion Gap 4 mmol/L (4-12); Aspartate Amino Transferase 24 U/L (14-36); Bilirubin,Total 1.5 mg/dL (0.2-1.3); Blood Urea Nitrogen 13 mg/dL (7-17); Calcium 9.5 mg/dL (8.4-10.2); Carbon Dioxide 31 mmol/L (22-30); Chloride 102 mmol/L (98-107); Estimated CRCL calculation 91 ml/min; Estimated Glomerular Filt Rate > 60; Glucose 112 mg/dL (65-110); Magnesium 1.9 mg/dL (1.6-2.3); Phosphorus 3.2 mg/dL (2.5-4.5); Potassium 3.9 mmol/L (3.4-5.0); Sodium 137 mmol/L (137-145)
[2024-04-02] MEDS: PERFLUTREN LIPID MICROSPHERES 1.5 ML VIAL DILUTED TO 10 ML TOTAL VOLUME IV PUSH (16:40)
--- NOTE | 2024-04-02 16:52 | IVDEFINITY ---
Prior to administration of IV Definity the patient was educated on the risks and benefits of the imaging enhancing agent including potential adverse side effects. The patient verbalized understanding. Allergies were verified. No exclusion criteria were identified and at least one of the following inclusion criteria were met: 1) physician request, 2) patient technically difficult to image (per the [place] [employer]chocardi[employer] guidelines of two or more segments not discernable within the apical view), or 3) questionable left ventricular function. ?
[2024-04-02] MEDS: LATANOPROST 0.005% OP SOLN 2.5 ML BTL 1 DROP EACH EYE (20:49)
[2024-04-03] VITALS: BP 112/45; PULSE 69; PULSE 72; RESP 20; TEMP 36.6; O2SAT 96
[2024-04-03 04:00] VITALS: BP 148/65; PULSE 63; PULSE 68; RESP 16; TEMP 36.4; O2SAT 96
[2024-04-03 08:00] VITALS: BP 147/74; PULSE 53; PULSE 64; RESP 17; TEMP 36.3; O2SAT 96
[2024-04-03] MEDS: ATORVASTATIN 20 MG TABLET PO (08:36)
[2024-04-03] MEDS: ASPIRIN 81 MG CHEWABLE TABLET PO (08:36)
[2024-04-03] MEDS: TIMOLOL MALEATE 0.5% OP SOLN 5 ML BOTTLE 1 DROP EACH EYE (08:37)
[2024-04-03 12:00] VITALS: BP 139/74; PULSE 69; PULSE 75; RESP 17; TEMP 36.4; O2SAT 99
--- NOTE | 2024-04-03 15:22 | P.DS_ITS ---
DS: Admitting Diagnosis Discharge Date 04/03/2024 Admitting Diagnosis dizzziness DS: Discharge Diagnosis Discharge Diagnosis (1) Afib: Code(s): I48.91 - Unspecified atrial fibrillation Status: Acute (2) TIA (transient ischemic attack): Code(s): G45.9 - Transient cerebral ischemic attack, unspecified Status: Acute DS: Summary Hospital Course Hospital Course: 74-year-old female who presents to the ED with dizziness that started all of sudden on 03/31/2024. She felt unsteady like she cannot walk straight. No slurred speech no weakness of upper or lower extremities. She has history of hypertension. Symptoms has resolved by the time she reached the ER. He was hypertensive on arrival to the ED otherwise stable vitals. Laboratory workup were unremarkable. EKG showed atrial fibrillation which is new. Rate controlled. Chest x-ray with no acute process. Head CT is negative for stroke. Cardiology and Neurology was consulted. MRI brain showed small focal acute infarct in the posterior most aspect of the right basal ganglia probable 7 mm left frontal convexity meningioma mild chronic microvascular ischemic changes. A stroke most likely related to underlying atrial fibrillation. Patient started on Xarelto. Echocardiogram with EF 65-70% mildly increased left ventricular wall thickness [id number] tricuspid vitals by regurgitation moderate pulm onary hypertension. Apnea link test showed high AHI with hypoxemia less than 88% for 144 minutes. Will continue oxygen at night. Will need sleep apnea testing as an outpatient basis. PT OT evaluated and cleared for discharge LDL 130 and will start statin Follow-up with Neurology as an outpatient basis. Time Spent with Patient Time attestation: Total time spent providing and/or coordinating discharge services: 35 minutes Exam Narrative: General: well appearing, appears stated age. HEENT: normocephalic, atraumatic. Mucous membranes moist. EOMI, PERRLA, bilateral sclera anicteric, no conjunctival injection. Neck supple without JVD, lymphadenopathy, or bruit. Respiratory: clear to ascultation bilaterally. No rales/rhonic/wheezes. Cardiovascular: Irregularly rate and rhythm, normal S1-S2 upon ascultation. No murmurs, rubs, or clicks. PMI is nondisplaced, capillary refill less than 3 second. Abdomen: Soft, round, no pulsatile masses, nondistended and nontender. No rebound, no guarding. No CVA tenderness, no hepatosplenomegaly. Bowel sounds present to all four quadrants. No high pitch or tinkling sounds, resonant to percussion. Extremities: No cyanosis, clubbing, or edema present. Pulses are palpable 2/2. Active ROM to all four extremities. Neuro: Alert and orientated x 4. PERRLA. Cranial nerves 2-12 intact without focal deficit. Skin: Warm, dry, and intact, without rash, erythema, or lesion. Psych: pleasant, cooperative, normal speech, normal affect, no hallucinations, no dysarthia DS: Data Data Completed and Pending Completed studies during hospitalization: Exam Type: CA echo dop color flow w con Study Info Indications I48.1 - Persistent atrial fibrillation Complete two-dimensional, color flow and Doppler transthoracic echocardiogram is performed with contrast to opacify the left ventricle and to improve the deliniation of the left ventricle endocardial borders. Contrast/Agitated Saline Contrast/Ag. Saline: Definity Amount: 3.00 ml Administered By: Libra Mathew RDCS Existing IV Access: Yes Reason for Poor Study: patient body habitus Summary 1. Left ventricular systolic function is normal, estimated at 65-70%. 2. There is mildly increased left ventricular wall thickness. 3. Left atrial chamber dimension is mildly enlarged. 4. Right atrial chamber dimension is moderately enlarged. 5. There is mild mitral valve regurgitation. 6. The mitral valve annulus is mildly calcified. 7. There is mild to moderate tricuspid valve regurgitation. 8. Moderate pulmonary hypertension, estimated pulmonary arterial systolic pressure is 49 mmHg. Left Ventricle Left ventricular chamber dimension is normal. Left ventricular systolic function is normal, estimated at 65-70%. There is mildly increased left ventricular wall thickness. Left ventricular septal wall motion is normal. The left ventricular diastolic function is abnormal. Right Ventricle Right ventricular chamber dimension is normal. Right ventricular systolic function is normal. Left Atria Left atrial chamber dimension is mildly enlarged. Right Atria Right atrial chamber dimension is moderately enlarged. Atrial Septum Intact interatrial septum visualized by color flow imaging. Aortic Valve The aortic valve is trileaflet. There is no aortic valve sclerosis. There is no aortic valve stenosis. There is no aortic valve regurgitation. Pulmonic Valve The pulmonic valve is normal. There is no pulmonic valve stenosis. There is no pulmonic regurgitation. Mitral Valve The mitral valve has normal leaflets. There is no mitral valve stenosis. There is mild mitral valve regurgitation. There is no mitral valve calcification. The mitral valve annulus is mildly calcified. Tricuspid Valve The tricuspid valve leaflets are normal. There is no significant tricuspid valve stenosis. There is mild to moderate tricuspid valve regurgitation. Moderate pulmonary hypertension, estimated pulmonary arterial systolic pressure is 49 mmHg. Pericardium/Pleural The pericardium appears normal. There is no pericardial effusion. Inferior Vena Cava Normal inferior vena cava with <50% collapse upon inspiration consistent with Empty right atrial pressure, 10 mmHg. Aorta The aortic root size at the sinus of Valsalva is normal. The prox ascending aorta size is normal. Imaging Radiologist's impression: ITS Impressions Chest X-Ray 03/31/24 07:01 IMPRESSION: 1. Cardiomegaly. Head/Neck CTA 03/31/24 13:55 IMPRESSION: 1. Normal CTA head and neck. Percent stenosis per NASCET criteria is 0%. 2. Very mild narrowing of the right vertebral artery segment 3. Brain MRI 04/02/24 06:25 IMPRESSION: Small focal acute infarct at the posterior most aspect of the right basal ganglia region. Probable 7 mm left frontal convexity meningioma. Mild chronic microvascular ischemic changes. Discharge Plan Discharge Attending physician on discharge: Tony Wu Consulting providers: Zeyad Smith; Khoi Simpson Discharging Clinician: Tony Wu Anticipated Discharge Date/Time: 04/03/24 15:24 Patient Disposition: Home, Self-Care Activity: as tolerated Diet: heart healthy Patient Instructions: Antibiotic Form, Atorvastatin (By mouth), Rivaroxaban (By mouth), Cholesterol and Your Health (GEN) Patient Language: Surinamese Stand Alone Forms: General Discharge Information Follow-up/Referrals: [facility] [Other] - 1 Week Khoi Simpson MD [Physician] - 4 Weeks Zeyad Smith MD [Physician] - 4 Weeks Discharge Medications: New Xarelto 20 mg Tablet 20 mg PO DAILY@1700 Qty: 30 0RF atorvastatin 20 mg Tablet 20 mg PO HS Qty: 30 0RF aspirin [Children's Aspirin] 81 mg Tablet,Chewable 81 mg PO DAILY@0800 Qty: 30 0RF Continued latanoprost 0.005 % drops 1 drp EACH EYE QPM timolol maleate 0.5 % drops 1 drp EACH EYE QAM triamterene-hydrochlorothiazid 37.5-25 mg capsule 1 cap PO .QD Discontinued aspirin 81 mg tablet,chewable 81 mg PO DAILY Date of admission: 03/31/24 12:19 Primary Care Provider: Nitesh Harrell Admitting Provider: Josse Chao Attending physician on admission: Josse Chao Condition: Stable
[2024-04-03 16:00] VITALS: BP 137/78; PULSE 67; PULSE 71; RESP 17; TEMP 36.2; O2SAT 98
--- NOTE | 2024-04-03 16:32 | PCRCNOTE ---
Spoke to RN in regards to last-minute home O2 set up. Apnea Link shows pt requires PAP unit. Home O2 will not be paid for thru insurance if testing identifies need for CPAP. Pt may be able to obtain an autopap unit prior to D/C with proper time for set up and trial to ensure using correctly. RN understands that we are unable to set up pt with just O2 at night, without proper testing and diagnosis, unless pt will self-pay for O2 equipment. Approval for PAP unit will be needed for DME to set-up in home as well, which cannot be completed when the DME offices are closing in 15-20 minutes.
[2024-04-03] MEDS: RIVAROXABAN 20 MG TABLET PO (17:23)
--- OUTSIDE RECORDS SUMMARY | 2024-04-07 01:57 | XMS_ITS | Encounter Summary ---
Author Organization [facility] Address [address] [place] [address]. [place], [place] [id number] [place] [id number] Care Team Providers Care Lehr Cutter Name Role Phone Unavailable Primary Care Provider Unavailabl e Encounter Details Date Type Department Care Team (Late st Contact Info) Description 10/18/2005 Abstract [facility] [address] [place] [address] , Tatyana Harrison MD Social History Tobacco Use Types Packs/Day Years Used Date Smoking Tobacco: Never Assessed Comments Unknown Sex and Gender Information Value Date Recorded Sex Assigned at Not on file Legal Sex Female 7:24 PM CDT Gender Identity Female 12/28/2021 6:03 AM CDT Sexual Orientation Straight 12/28/2021 6: 03 AM CDT documented as of this encounter Plan of Treatment Not on file documented as of this encounter Visit Diagnoses Not on filedocumented in this encounter
--- OUTSIDE RECORDS SUMMARY | 2024-04-07 01:57 | XMS_ITS | Encounter Summary ---
Author Organization [facility] Address [address] [place] [address]. [place] [address] Care Team Providers Care Children Teacher Name Role Phone None, Provider Primary Care Provider Heriberto cohen Encounter Details Date Type Department Care Team (Latest Contact Info) Description 01/05/2024 Travel Social History Tobacco Use Types Packs/Day Years [...] Diagnoses Not on filedocumented in this encounter Care Teams Children Teacher Relationship Specialty Start Date End Date None, Provider, PCP - General 12/19/18 documented as of this encounter
--- OUTSIDE RECORDS SUMMARY | 2024-04-07 01:57 | XMS_ITS | Encounter Summary ---
Author Organization [facility] Address [address] [place] [address]. [place] [address] Care Team Providers Care Sorter Laundry Articles Name Role Phone None, Provider Primary Care Provider Heriberto cohen Encounter Details Date Type Department Care Team (Latest Contact Info) Description 01/10/2021 Travel Social History Tobacco Use Types Packs/Day Years Used Date Smoking Tobacco: Never Assessed Comments Unknown Sex and Gender Information Value Date Recorded Sex Assigned at Not on file Legal Sex Female 7:24 PM CDT Gender Identity Female 12/28/2021 6:03 AM CDT Sexual Orientation Straight 12/28/2021 6: 03 AM CDT COVID-19 Exposure Response Date Recorded In the last month, have you been in contact with someone who was confirmed or suspected to have Coronavirus / COVID-19? No / Unsure 01/10/2021 2:17 AM CDT documented as of this encounter Plan of Treatment Not on file documented as of this encounter Visit Diagnoses Not on filedocumented in this encounter Care Teams Sorter Laundry Articles Relationship Specialty Start Date End Date None, Provider, PCP - General 12/19/18 documented as of this encounter
--- OUTSIDE RECORDS SUMMARY | 2024-04-07 01:57 | XMS_ITS | Encounter Summary ---
Author Organization [facility] Address [address] [place] [address]. [place], [place] [id number] [place] [id number] Care Team Providers Care Network Support Manager Name Role Phone Unavailable Primary Care Provider Unavailabl e Encounter Details Date Type Department Care Team (Late st Contact Info) Description 10/18/2005 Abstract [facility] [address] [place] [address] , Tatyana Harrison MD Social History Tobacco [...]
--- OUTSIDE RECORDS SUMMARY | 2024-04-07 01:57 | XMS_ITS | Encounter Summary ---
Author Organization [facility] Address [address] [place] [address]. [place] [address] Care Team Providers Care Meat Curer Name Role Phone None, Provider Primary Care Provider Heriberto cohen Encounter Details Date Type Department Care Team (Latest Contact Info) Description 01/05/2020 Travel Social History Tobacco Use Types Packs/Day [...] have Coronavirus / COVID-19? No / Unsure 01/05/2020 11:40 AM CDT documented as of this encounter Plan of Treatment Not on file documented as of this encounter Visit Diagnoses Not on filedocumented in this encounter Care Teams Meat Curer Relationship Specialty Start Date End Date None, Provider, PCP - General 12/19/18 documented as of this encounter
--- OUTSIDE RECORDS SUMMARY | 2024-04-07 01:57 | XMS_ITS | Encounter Summary ---
Author Organization [facility] Address [address] [place] [address]. [place] [address] [place] [address] Care Team Providers Care Open Claims Representative Name Role Phone Unavailable Primary Care Provider Unavailabl e Encounter Details Date Type Department Care Team (Late st Contact Info) Description 01/07/2018 Abstract [facility] [address] [place], [place] [id number] Leesa Yusuf MD [address] [facility] [place], [place] [id number] Social History Tobacco Use Types Packs/Day Years [...] on file documented as of this encounter Procedures Procedure Name Priority Date/Time Associated Diagnosis Comments HEALTH FAIR WITH LIPID Routine 01/07/2018 1:05 AM CDT HEMOGLOBIN, GLYCOSYLATED Routine 01/07/2018 1:05 AM CDT VITAMIN D, 25 OH Routine 01/07/2018 1:05 AM CDT documented in this encounter Results * VITAMIN D, 25 OH (01/07/2018 1:05 AM CDT) VITAMIN D 25 HYDROXY S/P/B 44 30 - 100 NG/ML 01/08/2018 2:10 PM CDT [facility] Comment: ?INTERPRETATION ?DEFICIENT ??<20 ? INSUFFICIENT 20-29 ?SUFFICIENT 30-100 01/07/2018 1:05 AM CDT 01/07/2018 1:06 AM CDT Generic Conversion Md [facility] Final R esult [facility] [address] [place] [address], [place] [phone] * (ABNORMAL) HEMOGLOBIN, GLYCOSYLATED (01/07/2018 1:05 AM CDT) HGB A1C 6.2(H) <5.7 % 01/07/2018 3:56 PM CDT [facility] Comment: INCREASED RISK OF DIABETES<5.7% ?NON-DIABETES5.7-6.4% INCREASED RISK FOR FUTURE DIABETES> OR = 6.5 CONSISTENT WITH DIABETES STANDARDS OF MEDICAL CARE IN DIABETES-2010[facility], 33(SUPP 1): S1-S61,2009 WHOLE BLOOD SPECIMEN / Unknown 01/07/2018 1:05 AM CDT 01/07/2018 1:06 AM CDT Generic Conversion Md [facility] Final R esult [facility] [address] [place] [address], [place] [phone] * (ABNORMAL) HEALTH FAIR WITH LIPID (01/07/2018 1:05 AM CDT) WBC 9.2 4.4 - 11.0 x10'3/uL 01/07/2018 1:13 PM CDT [facility] RBC 4.26(L) 4.50 - 5.10 x10'6/uL 01/07/2018 1:13 PM CDT [facility] HGB 12.5 12.3 - 15.3 G/DL 01/07/2018 1:13 PM T [facility] HCT 39.5 35.9 - 44.6 % 01/07/2018 1:13 PM T [facility] MCV 92.7 80.0 - 96.0 FL 01/07/2018 1:13 PM CDT [facility] MCH 29.3 25.3 - 30.9 PG 01/07/2018 1:13 PM T [facility] MCHC 31.6 31.0 - 34.1 G/DL 01/07/2018 1:13 PM [facility] RDW 14.9 12.4 - 15.1 % 01/07/2018 1:13 PM T [facility] PLT 272 151 - 353 x10'3/uL 01/07/2018 1:13 PM T [facility] MPV 9.6 9.6 - 12.0 FL 01/07/2018 1:13 PM [facility] RBC MORPHOLOGY NORMAL 01/07/2018 1:13 PM T [facility] PLT MORPH. NORMAL 01/07/2018 1:13 PM T [facility] WBC MORPHOLOGY NORMAL 01/07/2018 1:13 PM T [facility] LYMPHOCYTES % 19.0 15.8 - 45.0 % 01/07/2018 1:13 PM CDT [facility] NEUTROPHILS % 60.5 42.1 - 71.9 % 01/07/2018 1:13 PM T [facility] MONOCYTES % 5.6(L) 5.7 - 12.5 % 01/07/2018 1:13 PM CDT [facility] EOSINOPHILS 13.8(H) 0.0 - 5.6 % 01/07/2018 1:13 PM T [facility] BASOPHILS 0.9 0.0 - 1.3 % 01/07/2018 1:13 PM [facility] ABS. NEUTROPHILS TOTAL 5.58 1.40 - 6.00 x10'3/uL 01/07/2018 1:13 PM T [facility] IMMATURE GRANS % 0.2 0.0 - 0.5 % 01/07/2018 1:13 PM T [facility] ABS. LYMPHOCYTES 1.75 0.80 - 4.70 x10'3/uL 01/07/2018 1:13 PM [facility] GLUCOSE 104(H) 70 - 99 MG/DL 01/07/2018 6:04 PM T [facility] BUN 16 7 - 18 MG/DL 01/07/2018 6:04 PM [facility] CREATININE S/P/B 0.80 0.55 - 1.02 MG/DL 01/07/2018 6:04 PM [facility] SODIUM S/P/B 143 136 - 145 MMOL/L 01/07/2018 6:04 PM [facility] POTASSIUM S/P/B 4.7 3.5 - 5.1 MMOL/L 01/07/2018 6:04 PM T [facility] CHLORIDE S/P/B 103 100 - 108 MMOL/L 01/07/2018 6:04 PM T [facility] CO2 32.6(H) 21 - 32 MMOL/L 01/07/2018 6:04 PM [facility] CALCIUM S/P/B 9.4 8.5 - 10.1 MG/DL 01/07/2018 6:04 PM T [facility] BILIRUBIN TOTAL S/P/B 0.7 0.2 - 1.2 MG/DL 01/07/2018 6:04 PM [facility] TOTAL PROTEIN S/P/B 7.3 6.4 - 8.2 G/DL 01/07/2018 6:04 PM [facility] ALBUMIN S/P/B 3.3(L) 3.4 - 5.0 G/DL 01/07/2018 6:04 PM [facility] AST 19 15 - 37 U/L 01/07/2018 6:04 PM [facility] ALT 26 14 - 55 U/L 01/07/2018 6:04 PM [facility] ALKALINE PHOSPHATASE S/P/B 90 50 - 136 U/L 01/07/2018 6:04 PM [facility] ANION GAP 12.1 8 - 20 MMOL/L 01/07/2018 6:04 PM [facility] BUN CREATININE RATIO 20.0 6 - 26 01/07/2018 6:04 PM [facility] A/G RATIO 0.8(L) 1.0 - 2.0 RATIO 01/07/2018 6:04 PM [facility] EGFR NON-AFR. AMER. 76(L) >90 ML/MIN/1. 73 M2 01/07/2018 6:04 [facility] EGFR AFR. AMER. 88(L) >90 ML/MIN/1. 73 M2 01/07/2018 6:04 PM [facility] Comment: NOTE: eGFR is not calculated for patients <18 years of age. This is an estimated GFR (CKD EPI) and should not be used for calculating drug doses. CHOLESTEROL 237(H) <200.0 MG/DL 01/07/2018 6:04 PM [facility] TRIGLYCERIDES 127 <150 MG/DL 01/07/2018 6:04 [facility] HDL 52 >40.0 MG/DL 01/07/2018 6:04 [facility] LDL (CALCULATED) 160(H) <100 MG/DL 01/07/2018 6:04 [facility] NON HDL CHOLESTEROL 185(H) <130 MG/DL 01/07/2018 6:04 [facility] CHOL/HDL RATIO 4.6(H) 0.0 - 4.5 01/07/2018 6:04 [facility] VLDL CALCULATION 25 5 - 55 MG/DL 01/07/2018 6:04 [facility] LIPID INTERPRETATION 01/07/2018 6:04 [facility] Comment: NIH CONCENSUS REPORT RECOMMENDATIONS: ?ADULT ? CHILD ??LOW RISK: ?CHOLESTEROL ? <200 ? <170 ? TRIGLYCERIDE ?<150 ?--- ?HDL ? >=60 ?--- ?LDL ? <100 ? <110 ?? BORDERLINE: ?CHOLESTEROL ? 200-239 ?? 170-199 ?TRIGLYCERIDE ?150-199 ? --- ?HDL ? 40-59 ?--- ?LDL ? 100-159 ?? 110- 129 ?? HIGH RISK: ? CHOLESTEROL ? >=240 ?>=200 ?TRIGLYCERIDE ?>=200 ? --- ?HDL ?<40 ?--- ?LDL ? >=160 ?>=130 TSH 1.947 0.358 - 3.74 uIU/ML 01/07/2018 6:04 PM CDT [facility] Comment: HIGH DOSES OF BIOTIN MAY INTERFERE WITH THIS TEST RESULT. CORRELATION TO CLINICAL HISTORY AND PRESENTATION RECOMMENDED. OTHER (type in comments) 01/07/2018 1:05 AM CDT 01/07/2018 1:06 AM CDT Comment:WHOLE BLOOD SAMPLE ~ ~ACELLULAR BLOOD (SERUM OR PLASMA) SPECIMEN us Generic Conversion Md [facility] Final R esult [facility] [address] [place] [address], [place] [phone] documented in this encounter Visit Diagnoses Not on filedocumented in this encounter
--- OUTSIDE RECORDS SUMMARY | 2024-04-07 01:57 | XMS_ITS | Clinical Summary ---
Author Organization [facility] Address [address] [place] [address]. [place], [place] [address] [place] [address] Care Team Providers Care Satellite Dish Technician Name Role Phone None, Provider Primary Care Provider Unavaila ble Social History Tobacco Use Types Packs/Day Years Used Date Smoking Tobacco: Never Assessed Comments Unknown Sex and Gender Information Value Date Recorded Sex Assigned at Not on file Legal Sex Female 7:24 PM CDT Gender Identity Female 12/28/2021 6:03 AM CDT Sexual Orientation Straight 12/28/2021 6: 03 AM CDT Plan of Treatment Health Maintenance Due Date Last Done Comments Colorectal Cancer Screening Colonoscopy (10 Years) 1949 Hepatitis C 1967 DTaP, Tdap and Td Vaccines ( 1 - Tdap) 02/16/1968 Zoster Vaccines (1 of 2) 1999 Dexa Scan (General) 2014 Pneumococcal Vaccine: 65+ Years (1 of 1 - PCV) 2014 COVID-19 Vaccine (3 - 2023-2 5 season) 2023 06/23/2020, 05/30/2020 Influenza Adult (#1) 2023 RSV Immunization or 60+ Years (1 - 1-dose 75+ series) 02/16/2024 Meningococcal Vaccine Aged Out No viki anitra eligible based on patient's age to complete this topic RSV Immunizations Under 20 Months Aged Out No longer eligible b ased on patient's age to complete this topic Care Teams Satellite Dish Technician Relationship Specialty Start Date End Date None, Provider, PCP - General 12/19/18
--- OUTSIDE RECORDS SUMMARY | 2024-04-07 01:57 | XMS_ITS | Encounter Summary ---
Author Organization [facility] Address [address] [place] [address]. [place] [address] [place] [address] Care Team Providers Care Footwear Sales Leader Name Role Phone Unavailable Primary Care Provider Unavailabl e Encounter Details Date Type Department Care Team (Late st Contact Info) Description 01/10/[address] [facility] [address] [place], [place] [phone] Leesa Yusuf MD [address] [facility] [place], [place] [id number] Social History Tobacco Use Types Packs/Day Years [...]
--- OUTSIDE RECORDS SUMMARY | 2024-04-07 01:57 | XMS_ITS | Encounter Summary ---
Author Organization [facility] Address [address] [place] [address]. [place], [place] [address] [place] [address] Care Team Providers Care Internal Auditor Name Role Phone Unavailable Primary Care Provider Unavailabl e Encounter Details Date Type Department Care Team (Late st Contact Info) Description 08/10/2004 Abstract [facility] [address] [facility] [address] [place] [address] , Tatyana Harrison MD Social History [...]
--- OUTSIDE RECORDS SUMMARY | 2024-04-07 01:57 | XMS_ITS | Encounter Summary ---
Author Organization [facility] Address [address] [place] [address]. [place] [address] [place] [address] Care Team Providers Care Hospital Administrator Name Role Phone Unavailable Primary Care Provider Unavailabl e Encounter Details Date Type Department Care Team (Late st Contact Info) Description 01/15/[address] [facility] [address] [place], [place] [phone] Leesa Yusuf MD [address] [facility] [place], [place] [phone] Social History Tobacco Use Types Packs/Day Years [...] documented as of this encounter Visit Diagnoses Diagnosis Routine general medical examination at a health care facility documented in this encounter
--- OUTSIDE RECORDS SUMMARY | 2024-04-07 01:57 | XMS_ITS | Encounter Summary ---
Author Organization [facility] Address [address] [place] [address]. [place] [address] Care Team Providers Care Welding Machine Operator Electron Beam Name Role Phone None, Provider Primary Care Provider Heriberto cohen Encounter Details Date Type Department Care Team (Latest Contact Info) Description 01/01/2023 Travel Social History Tobacco Use Types Packs/Day [...] on filedocumented in this encounter Care Teams Welding Machine Operator Electron Beam Relationship Specialty Start Date End Date None, Provider, PCP - General 12/19/18 documented as of this encounter
--- OUTSIDE RECORDS SUMMARY | 2024-04-07 01:57 | XMS_ITS | Encounter Summary ---
Author Organization [facility] Address [address] [place] [address]. [place] [address] Care Team Providers Care Resident Services Coordinator Name Role Phone None, Provider Primary Care Provider Heriberto cohen Encounter Details Date Type Department Care Team (Latest Contact Info) Description 01/02/2022 Travel Social History Tobacco Use Types Packs/Day Years Used Date Smoking Tobacco: Never Assessed Comments Unknown Sex and Gender Information Value Date Recorded Sex Assigned at Not on file Legal Sex Female 7:24 PM CDT Gender Identity Female 12/28/2021 6:03 AM CDT Sexual Orientation Straight 12/28/2021 6: 03 AM CDT COVID-19 Exposure Response Date Recorded In the last 10 days, have yo u been in contact with someone who was confirmed or suspected to have Coronavirus/COVID-19? No / Unsure 01/02/2022 3:23 PM CDT documented as of this encounter Plan of Treatment Not on file documented as of this encounter Visit Diagnoses Not on filedocumented in this encounter Care Teams Resident Services Coordinator Relationship Specialty Start Date End Date None, Provider, PCP - General 12/19/18 documented as of this encounter
--- OUTSIDE RECORDS SUMMARY | 2024-04-07 01:57 | XMS_ITS | Encounter Summary ---
Author Organization [facility] Address [address] [place] [address]. [place] [address] [place] [address] Care Team Providers Care Non Profit Director Name Role Phone Unavailable Primary Care Provider Unavailabl e Encounter Details Date Type Department Care Team (Late st Contact Info) Description 01/08/2017 Abstract [facility] [address] [place], [place] [phone] Leesa Yusuf MD [address] [facility] [place], [place] [id number] Social History Tobacco Use Types Packs/Day Years [...] Diagnosis Comments HEALTH FAIR WITH LIPID Routine 01/08/2017 12:48 AM CDT HEMOGLOBIN, GLYCOSYLATED Routine 01/08/2017 12:48 AM CDT VITAMIN D, 25 OH Routine 01/08/2017 12:4 8 AM CDT documented in this encounter Results * VITAMIN D, 25 OH (01/08/2017 12:48 AM CDT) VITAMIN D 25 HYDROXY S/P/B 55 30 - 100 NG/ML 01/08/2017 9:[address] [facility] Comment: SUPPLEMENTING WITH VITAMIN D2 MAY RESULT IN FALSELY LOW RESULTS, CLINICAL CORRELATION NEEDED. ?INTERPRETATION ?DEFICIENT ?? <20 ?INSUFFICIENT 20-30 ?SUFFICIENT 30-100POTENTIAL INTOXICATION ??>100 ?? TESTING PERFORMED [facility] [place] [address] 01/08/2017 12:4 8 AM CDT 01/08/2017 12:49 AM CDT Generic Conversion Md [facility] Final R esult Performing Organization Address [facility] de Phone Number [facility] [address] [place] [address], [place] [phone] * (ABNORMAL) HEMOGLOBIN, GLYCOSYLATED (01/08/2017 12:48 AM CDT) HGB A1C 5.7(H) <5.7 % 01/08/2017 11:54 PM CDT [facility] Comment: INCREASED RISK OF DIABETES<5.7% ?NON-DIABETES5.7-6.4% INCREASED RISK FOR FUTURE DIABETES> OR = 6.5 CONSISTENT WITH DIABETES STANDARDS OF MEDICAL CARE IN DIABETES-2010[facility], 33(SUPP 1): S1-S61,2010 WHOLE BLOOD SPECIMEN / Unknown 01/08/2017 12:48 AM CDT 01/08/2017 12:49 AM CDT us Generic Conversion Md [facility] Final R esult Performing Organization Address City/[facility]/ZIP Co de Phone Number [facility] [address] [place] [address], [place] [phone] * (ABNORMAL) HEALTH FAIR WITH LIPID (01/08/2017 12:48 AM CDT) WBC 5.2 4.4 - 11.0 x10'3/uL 01/08/2017 1:31 PM T [facility] RBC 4.35(L) 4.50 - 5.10 x10'6/uL 01/08/2017 1:31 PM T [facility] HGB 13.2 12.3 - 15.3 G/DL 01/08/2017 1:31 PM T [facility] HCT 39.9 35.9 - 44.6 % 01/08/2017 1:31 PM [facility] MCV 91.7 80.0 - 96.0 FL 01/08/2017 1:31 PM [facility] MCH 30.3 25.3 - 30.9 PG 01/08/2017 1:31 PM [facility] MCHC 33.1 31.0 - 34.1 G/DL 01/08/2017 1:31 PM [facility] RDW 13.7 12.4 - 15.1 % 01/08/2017 1:31 PM [facility] PLT 204 151 - 353 x10'3/uL 01/08/2017 1:31 PM [facility] MPV 10.6 9.6 - 12.0 FL 01/08/2017 1:31 PM T [facility] RBC MORPHOLOGY NORMAL 01/08/2017 1:31 PM [facility] PLT MORPH. NORMAL 01/08/2017 1:31 PM [facility] WBC MORPHOLOGY NORMAL 01/08/2017 1:31 PM [facility] LYMPHOCYTES % 25.0 15.8 - 45.0 % 01/08/2017 1:31 PM [facility] NEUTROPHILS % 65.6 42.1 - 71.9 % 01/08/2017 1:31 PM CDT [facility] MONOCYTES % 6.7 5.7 - 12.5 % 01/08/2017 1:31 PM T [facility] EOSINOPHILS 2.1 0.0 - 5.6 % 01/08/2017 1:31 PM [facility] BASOPHILS 0.4 0.0 - 1.3 % 01/08/2017 1:31 PM T [facility] ABS. NEUTROPHILS TOTAL 3.42 1.40 - 6.00 x10'3/uL 01/08/2017 1:31 PM T [facility] IMMATURE GRANS % 0.2 0.0 - 0.5 % 01/08/2017 1:31 PM T [facility] ABS. LYMPHOCYTES 1.30 0.80 - 4.70 x10'3/uL 01/08/2017 1:31 PM [facility] GLUCOSE 97 80 - 115 MG/DL 01/08/2017 12:15 PM [facility] BUN 18 9.8 - 20.1 MG/DL 01/08/2017 12:15 PM [facility] CREATININE S/P/B 0.80 0.57 - 1.11 MG/DL 01/08/2017 12:15 PM [facility] SODIUM S/P/B 142 136 - 145 MMOL/L 01/08/2017 12:15 PM T [facility] POTASSIUM S/P/B 3.8 3.5 - 5.1 MMOL/L 01/08/2017 12:15 PM T [facility] CHLORIDE S/P/B 103 98 - 107 MMOL/L 01/08/2017 12:15 PM [facility] CO2 30.0 23 - 31 MMOL/L 01/08/2017 12:15 PM T [facility] ANION GAP 12.8 10.0 - 24.0 MMOL/L 01/08/2017 12:15 PM [facility] OSMOLALITY (CALC) 285 271 - 290 MOSM/KG 01/08/2017 12:15 PM [facility] CALCIUM S/P/B 9.7 8.4 - 10.2 MG/DL 01/08/2017 12:15 PM [facility] BILIRUBIN TOTAL S/P/B 1.3(H) 0.2 - 1.2 MG/DL 01/08/2017 12:15 PM [facility] TOTAL PROTEIN S/P/B 7.2 6.4 - 8.3 G/DL 01/08/2017 12:15 PM [facility] ALBUMIN S/P/B 4.0 3.4 - 4.8 G/DL 01/08/2017 12:15 PM [facility] AST 23 5 - 34 U/L 01/08/2017 12:15 PM [facility] ALT 36 6 - 55 U/L 01/08/2017 12:15 PM [facility] ALKALINE PHOSPHATASE S/P/B 88 30 - 130 U/L 01/08/2017 12:15 PM [facility] BUN CREATININE RATIO 22.5 6.0 - 26.0 01/08/2017 12:15 PM [facility] A/G RATIO 1.3 1.1 - 1.9 RATIO 01/08/2017 12:15 PM [facility] EGFR NON-AFR. AMER. >60 >60 ML/MIN/1. 73 M2 01/08/2017 12:15 PM [facility] Comment: GFR Reference Range:Kidney Failure - <15mL/min ?Chronic Kidney Disease - <60mL/min ?? Normal Kidney Function - >60mL/min ?? GFR calculation is not recommended forPatients less than 18 years or greater than70 years as per the national Kidney Foundation.If the patient is -[place], multiply results by 1.21 TSH 2.06 0.35 - 4.94 uIU/mL 01/08/2017 12:06 PM T [facility] CHOLESTEROL 218(H) <200 MG/DL 01/08/2017 12:15 PM T [facility] TRIGLYCERIDES 162(H) <150 MG/DL 01/08/2017 12:15 PM [facility] HDL 40(L) >55 MG/DL 01/08/2017 12:15 PM T [facility] LDL (CALCULATED) 145.6(H) <130 MG/L 01/09/20 17 12:15 PM T [facility] CHOL/HDL RATIO 5.5 01/08/2017 12:15 PM T [facility] Comment: ??INTERPRETATION OF RESULTSNHLBI RECOMMENDED RANGES ? CHOLESTEROL MG/DL ?LDL MG/DL ?DESIRABLE ? <200 ?<130 ?BORDERLINE ? 200-239 ? 130-159 ?HIGH RISK ? >240 ?>160 REFERENCE VALUE FOR HDL CHOLESTEROL ?RISK LEVEL ??MALE MG/DL ? FEMALE MG/DL ? DECREASED ?>45 ?>55 ?AVERAGE ? 45 ? 55 ? INCREASED ?<45 ?<55 OTHER (type in comments) 01/08/2017 12:48 AM CDT 01/08/2017 12:49 AM CDT Comment:WHOLE BLOOD SAMPLE ~ SERUM SPECIMEN~ACELLULAR BLOOD (SERUM OR PLASMA) SPECIMEN us Generic Conversion Md [facility] Final R esult Performing Organization Address City/State/[facility] Co de Phone Number [facility] [address] [place] [address], [place] [phone] documented in this encounter Visit Diagnoses Not on filedocumented in this encounter
--- OUTSIDE RECORDS SUMMARY | 2024-04-07 01:58 | XMS_ITS | Encounter Summary ---
Author Organization [facility] Address [address] [place] [address]. [place], [place] [address] [place] [address] Care Team Providers Care Escalation Engineer Name Role Phone Unavailable Primary Care Provider Unavailabl e Encounter Details Date Type Department Care Team (Late st Contact Info) Description 08/10/2004 Abstract [facility] [address] [place] [address] , Tatyana Harrison MD Social [...]
--- OUTSIDE RECORDS SUMMARY | 2024-04-07 01:58 | XMS_ITS | Encounter Summary ---
Author Organization [facility] Address [address] [place] [address]. [place], [place] [address] [place] [address] Care Team Providers Care Dietary Assistant Name Role Phone Unavailable Primary Care Provider Unavailabl e Encounter Details Date Type Department Care Team (Late st Contact Info) Description 08/01/2002 Abstract [facility] [address] [place] [address] , Tatyana Harrison MD Social [...]
--- OUTSIDE RECORDS SUMMARY | 2024-04-07 01:58 | XMS_ITS | Encounter Summary ---
Author Organization [facility] Address [address] [place] [address]. [place], [place] [address] [place] [address] Care Team Providers Care Yard Driver Name Role Phone Unavailable Primary Care Provider Unavailabl e Encounter Details Date Type Department Care Team (Late st Contact Info) Description 08/05/2003 Abstract [facility] [address] [place] [address] , Tatyana Harrison MD Social History [...]
--- OUTSIDE RECORDS SUMMARY | 2024-04-07 01:58 | XMS_ITS | Continuity of Care Document ---
Author Organization [facility] [place], [facility] Address [address] [place] [address] Phone Care Team Providers Care Lead Customer Service Representative Name Role Phone Surgery - [place] [facility], [facility] Unavailable Unavailable Procedures Procedure Date Pre Payment CATARACT SURG W/IOL Pt Documented Not To Have Experienced An y Of The Pt W/Out Preop Order For IV Antibiotic S SI Pre Payment CATARACT SURG W/IOL Pt Documented Not To Have Experienced An y Of The Pt W/Out Preop Order For IV Antibiotic S SI Advance Directives Directive Yes / No Effective Date File Name No Information Encounters Encounter Description Practice Location Reason(s) For Visit Diagnoses Date Provider Providers Copied on Encounter [facility] [place], [facility], [address] [place], [place], [id number], [place] tel:[phone] [facility] [facility] No Information Surgery - [place] [facility]. [address] [place], [place], [id number], [place]. tel:[phone] Referring Provider: uGy Esparza, [address] [place], [address]. tel:[phone] [facility] [place], [facility], [address], [place], [place], [id number], [place] tel:[phone] [facility] No Information Surgery - [facility]. [address], [place], [place], [id number], [place]. tel:[phone] Referring Provider: Guy Esparza, [address] [place], [address]. tel:[phone] Family History Family Member Type Diagnosis Age At Onset No Information Payers Payer name Insurance type Covered green party ID Authoriza tion(s) Medicare [place] [id number] [employer] [facility] CI [id number] Social History Type Description Quantity Date Captured Comments Sex Female Smoking Status No Information Chief Complaint And Reason For Visit No Information Reason For Referral Reason For Referral No Information History Of Present Illness Encounter Date Complaint History Of Prese nt Illness No Information Functional Status Date Functional Assessmen t No Information Instructions Date Instruction Additional Infor mation No Information Assessments Type Assessment Date No Information Patient Care Teams Name Effective Dates (start - stop) Status Members No Information
--- OUTSIDE RECORDS SUMMARY | 2024-04-07 01:58 | XMS_ITS | Continuity of Care Document ---
Author Organization [facility], L TD Address [address] [place] [address] Phone Care Team Providers Care Bicycle Assembler Name Role Phone Oberreiter OD, Yazmin Unavailable Unavailabl e Allergies, Adverse Reactions, Alerts Substance Reaction Status Criticality Penicillins Unknown(unknown) Active [facility] to [facility] Medications Medication Instructions Dosage Effective Dates (start - stop) Status Comments LATANOPROST 0.005% EYE DROPS INSTILL 1 DROP INTO BOTH EYES AT BEDTIME - Active timolol maleate 0.5 % eye drops INSTILL 1 DROP INTO BOTH EYES BID EVERY DAY - Active please dispense 90 day supply PreserVision AREDS 2 250 mg-200 unit-40 mg-1 mg capsule take 1 tablet by oral route every day 1 tablet - Active aspirin 81 mg tablet,delayed release take 1 tablet by oral route every day 81 MG - Active Dyazide 37.5 mg-25 mg capsule take 1 capsule by oral route every day - Active Vitamins & Minerals Tab - Active Procedures Procedure Date REFRACTION Scan Image/ OCT, Glaucoma EYE EXAM ESTABLISHED PATIENT GONIOSCOPY REFRACTION Scan Image/ OCT, Glaucoma EYE EXAM ESTABLISHED PATIENT REFRACTION POSTOP FOLLOW-UP VISIT Macular Protect Complete-S Vitamins Eye Hydration Compress Mask POST CATARACT LASER SURGERY, YAG LASER J POST CATARACT LASER SURGERY, YAG LASER M FUNDUS PHOTOGRAPHY EYE EXAM ESTABLISHED PATIENT JARAMILLO VISUAL FIELD EYE EXAM ESTABLISHED PAT Macular Protect Vitamin REFRACTION Scan Image/ OCT, Glaucoma EYE EXAM ESTABLISHED PATIENT Soheila Hydrating Compress Macular Protect Vitamin EYE EXAM ESTABLISHED PAT EYE EXAM ESTABLISHED [facility], MEDICAL JARAMILLO VISUAL FIELD EYE EXAM ESTABLISHED PATIENT, MEDICAL No REFRACTION OPTIONAL UPDATE Scan Image/ OCT, Glaucoma EYE EXAM ESTABLISHED [facility] JARAMILLO VISUAL FIELD EYE EXAM ESTABLISHED [facility] IOL Frame Medicare UV lens/es Medicare UV lens/es Postoperative Exam REFRACTION UPDATE Postoperative Exam REFRACTION NO CHARGE Postoperative Exam CATARACT SURG W/IOL IOL MASTER, PROF COMP ONLY Postoperative Exam CATARACT SURG W/IOL EYE EXAM ESTABLISHED PATIENT, MEDICAL De REFRACTION NO UPDATE IOL MASTER Post Operative Kit / Medical Supply By P rescription EYE EXAM ESTABLISHED [facility], MEDICAL EYE EXAM ESTABLISHED PATIENT, MEDICAL Ju Scan Image/ OCT, Glaucoma EYE EXAM ESTABLISHED [facility], [facility] EYE EXAM ESTABLISHED [facility] JARAMILLO VISUAL FIELD Vision svcs frames purchases Lens Hi Index 1.66/1.67 Trifocal Lens Photochromatic Tint Progressive lens per lens A/R Standard Miscellaneous vision service UV Lens EYE EXAM ESTABLISHED [facility] EYE EXAM ESTABLISHED PATIENTDORY Au REFRACTION OPTIONAL UPDATE Scan Image/ OCT, Glaucoma EYE EXAM ESTABLISHED [facility] EYE EXAM ESTABLISHED [facility] EYE EXAM ESTABLISHED PATIENT, MEDICAL Se JARAMILLO VISUAL FIELD EYE EXAM ESTABLISHED [facility] EYE EXAM ESTABLISHED [facility], [facility] GONIOSCOPY EYE EXAM ESTABLISHED [facility] EYE EXAM ESTABLISHED PATIENT, MEDICAL No REFRACTION NO UPDATE Scan Image/ OCT, Glaucoma EYE EXAM ESTABLISHED [facility] JARAMILLO VISUAL FIELD, BI-LATERAL EYE EXAM ESTABLISHED [facility] EYE EXAM ESTABLISHED [facility] GONIOSCOPY EYE EXAM ESTABLISHED PATIENT MEDICAL Oc Scan Image/ OCT, Glaucoma EYE EXAM ESTABLISHED [facility] JARAMILLO VISUAL FIELD, BI-LATERAL Frame EYE EXAM ESTABLISHED PATIENTDORY Se p SCAN IMAGING, BI-LATERAL Advance Directives Directive Yes / No Effective Date File Name No Information Encounters Encounter Description Practice Location Reason(s) For Visit Diagnoses Date Provider Providers Copied on Encounter [facility], [address] [place] [address], [id number] , tel:[phone] [facility] No Information 2 Oberreiter Yazmin. [address] [place], [id number], [place]. tel:[phone] [facility], [address] [place] [address], [id number] , tel:[phone] [facility] No Information 2 Oberreiter Yazmin. [address], [place], [place], [id number], [place]. tel:[phone] [facility], [address] [place] [address], [id number] , tel:[phone] [facility] no problems with vision and no complaints (chief complaint)n o problems with vision and no complaints (chief complaint) Nonexudative age-related macular degeneration, bilateral, early dry stagePrimary open-angle glaucoma, bilateral, mild stagePresence of intraocular lensMyopia, bilateralPresbyop iaRegular astigmatism, bilateralDry eye syndrome of bilateral lacrimal glands 1 Oberreiter Yazmin. [address], [place], [place], [id number], [place]. tel:[phone] [facility], [address] [place] [address], [id number] , [place] tel:[phone] [facility] no problems with vision and no complaints (chief complaint)n o problems with vision and no complaints (chief complaint) Myopia, bilateralRegular astigmatism, right eyePresbyopiaPrim dario open-angle glaucoma, bilateral, mild stagePresence of intraocular lensNonexudative age-related macular degeneration, bilateral, early dry stage Oct-2 9 Oberreiter Yazmin. [address], [place], [place], [id number], [place]. tel:[phone] [facility], [address] [place] [address], [id number] , [place] tel:[phone] [facility] no problems with vision and no complaints (chief complaint)n o problems with vision and no complaints (chief complaint) Other specified postprocedural statesNonexudativ e age-related macular degeneration, bilateral, early dry stagePrimary open-angle glaucoma, bilateral, mild stageMyopia, bilateralPresbyop ia Chaim- 9 Oberreiter Yazmin. [address], [place], [place], [id number], [place]. tel:[phone] [facility], [address] [place] [address], [id number] , [place] tel: [phone] [facility] No Information 9 Oberreiter Yazmin. [address], [place], [place], [id number], [place]. tel: [phone] [facility], [address] [place] [address], [id number] , [place] tel: [phone] [facility] blurry vision (chief complaint)b lurry vision (chief complaint) Other secondary cataract, left eye 9 Alan Tovar. [address] [place] [address], [id number], [place]. tel:[phone] [facility], [address] [place] [address], [id number] , [place] tel: [phone] [facility] blurry vision (chief complaint)b lurry vision (chief complaint) Other secondary cataract, bilateralOther secondary cataract, right eyeOther secondary cataract, left eyeNonexudative age-related macular degeneration, bilateral, early dry stagePrimary open-angle glaucoma, bilateral, mild stage 9 Alan Tovar. [address] [place] [address], [id number], [place]. tel:[phone] [facility], [address] [place] [address], [id number] , [place] tel: [phone] [facility] decreased vision (chief complaint)d ecreased vision (chief complaint) Primary open-angle glaucoma, bilateral, mild stageOther secondary cataract, bilateralDry eye syndrome of bilateral lacrimal glands 9 Oberreiter Yazmin. [address], [place], [place], [id number], [place]. tel: [phone] [facility], [address] [place] [address], [id number] , [place] tel: [phone] [facility] No Information 9 Oberreiter Yazmin. [address], [place], [place], [id number], [place]. tel:[phone] [facility], [address] [place] [address], [id number] , [place] tel: [phone] [facility] no problems with vision and no complaints (chief complaint)n o problems with vision and no complaints (chief complaint) Primary open-angle glaucoma, bilateral, mild stageMyopia, bilateralPresbyop iaOther secondary cataract, bilateralDry eye syndrome of bilateral lacrimal glands 0-201 8 Oberreiter Yazmin. [address], [place], [place], [id number], [place]. tel:[phone] [facility], [address] [place] [address], [id number] , [place] tel: [phone] [facility] no problems with vision and no complaints (chief complaint)n o problems with vision and no complaints (chief complaint) Primary open-angle glaucoma, bilateral, mild stage Aug-0 7-201 8 Oberreiter Yazmin. [address], [place], [place], [id number], [place]. tel:[phone] Referring Provider: Yazmin Esparza, [address], [place], [address]. tel:[phone] [facility], [address] [place] [address], [id number] , [place] tel: [phone] [facility] dryness (chief complaint)d ryness (chief complaint) Primary open-angle glaucoma, bilateral, mild stage Mar-2 8-201 8 Oberreiter Yazmin. [address], [place], [place], [id number], [place]. tel:[phone] Referring Provider: Yazmin Esparza, [address], [place], [address]. tel:[phone] [facility], [address] [place] [address], [id number] , [place] tel:[phone] [facility] no problems with vision and no complaints (chief complaint)n o problems with vision and no complaints (chief complaint) Primary open-angle glaucoma, bilateral, mild stageDry eye syndrome of bilateral lacrimal glandsOther secondary cataract, bilateralPresbyop ia Gwyn Arce. [address], [place], [place], [id number], [place]. tel:[phone] Referring Provider: Yazmin Esparza, [address], [place], [address]. tel:[phone] [facility], [address] [place] [address], [id number] , [place] tel:[phone] [facility] no problems with vision and no complaints (chief complaint)n o problems with vision and no complaints (chief complaint) Primary open-angle glaucoma, bilateral, mild stage Radha Loyd. [address] [place] [address], [id number], [place]. tel:[phone] Referring Provider: Rach Zuniga, [address] [place] [address], [address]. tel:[phone] [facility], [address] [place] [address], [id number] , [place] tel:[phone] [facility] redness, blurry, and pain (chief complaint)r edness, blurry, and pain (chief complaint) Conjunctival hemorrhage, left eye Gwyn Arce. [address], [place], [place], [id number], [place]. tel:[phone] Referring Provider: Yazmin Esparza, [address], [place], [address]. tel:[phone] [facility], [address] [place] [address], [id number] , [place] tel:[phone] [facility] No Information Gwyn Arce. [address], [place], [place], [id number], [place]. [phone] Referring Provider: Guy Esparza, [address] [place] [address], [address]. tel:[phone] [facility], [address] [place] [address], [id number] , [place] tel:[phone] [facility] (chief complaint) sore and tired (chief complaint) Primary open-angle glaucoma, bilateral, mild stagePresence of intraocular lensDry eye syndrome of bilateral lacrimal glandsMyopia, bilateral May- Gwyn Arce. [address], [place], [place], [id number], [place]. [phone] Referring Provider: Yazmin Esparza, [address], [place], [address]. [phone] [facility], [address] [place] [address], [id number] , [place] tel:[phone] [facility] no problems with vision and no complaints (chief complaint)n o problems with vision and no complaints (chief complaint) Cataract extraction status, right eyeCataract extraction status, left eyePresence of intraocular lensPrimary open-angle glaucoma, bilateral, mild stage Apr- 7 Gwyn Arce. [address], [place], [place], [id number], [place]. [phone] Referring Provider: Yazmin Esparza, [address], [place], [address]. [phone] [facility], [address] [place] [address], [id number] , [place] tel: [phone] [facility] Not sure if va is better or not OD (chief complaint)d enies pain or discomfort OD (chief complaint)N ot sure if va is better or not (chief complaint)d enies pain or discomfort (chief complaint) No Information Gwyn Arce. [address], [place], [place], [id number], [place]. tel:[phone] Referring Provider: Yazmin Esparza, [address], [place], [address]. [phone] [facility], [address] [place] [address], [id number] , [place] tel:[phone] [facility] No Information 7 Alan Tovar. [address] [place] [address], [id number], [place]. tel:[phone] Referring Provider: Guy Esparza, [address] [place] [address], [address]. tel:[phone] [facility], [address] [place] [address], [id number] , [place] tel:[phone] [facility] No Information 7 Alan Tovar. [address] [place] [address], [id number], [place]. tel:[phone] Referring Provider: Guy Esparza, [address] [place] [address], [address]. tel:[phone] [facility], [address] [place] [address], [id number] , tel:[phone] [facility] vision brighter OS (chief complaint)d enies pain or discomfort OS (chief complaint)b lurry vision OD (chief complaint)v ision brighter (chief complaint)d enies pain or discomfort (chief complaint)b lurry vision (chief complaint) No Information Gwyn Arce. [address], [place], [place], [id number], [place]. tel:[phone] Referring Provider: Yazmin Esparza, [address], [place], [address]. tel:[phone] [facility], [address] [place] [address], [id number] , [place] tel:[phone] [facility] No Information 7 Alan Tovar. [address] [place] [address], [id number], [place]. tel:[phone] Referring Provider: Yazmin Esparza, [address], [place], [address]. [phone] [facility], [address] [place] [address], [id number] , [place] tel:[phone] [facility] blurry vision (chief complaint)b lurry vision (chief complaint) Primary open-angle glaucoma, bilateral, mild stagePresbyopiaRe gular astigmatism, bilateral 6 Alan Tovar. [address] [place] [address], [id number], [place]. tel:[phone] Referring Provider: Guy Esparza, [address] [place] [address], [address]. tel:[phone] [facility], [address] [place] [address], [id number] , tel:[phone] [facility] dryness (chief complaint)d ryness (chief complaint) Primary open-angle glaucoma, bilateral, mild stage 6 Gwyn Arce. [address], [place], [place], [id number], [place]. [phone] Referring Provider: Yazmin Esparza, [address], [place], [address]. tel:[phone] [facility], [address] [place] [address], [id number] , [place] tel:[phone] [facility] no problems with vision and no complaints (chief complaint)n o problems with vision and no complaints (chief complaint) Primary open-angle glaucoma, mild stage 6 Oberreiter Yazmin. [address], [place], [place], [id number], [place]. tel:[phone] Referring Provider: Yazmin Esparza, [address], [place], [address]. tel:[phone] [facility], [address] [place] [address], [id number] , [place] [phone] [facility] no problems with vision and no complaints (chief complaint)n o problems with vision and no complaints (chief complaint) Primary open-angle glaucoma, mild stage 6 Oberreiter Yazmin. [address], [place], [place], [id number], [place]. tel:[phone] Referring Provider: Yazmin Esparza, [address], [place], [address]. tel:[phone] [facility], [address] [place] [address], [id number] , [place] [phone] [facility] blurry vision (chief complaint)b lurry vision (chief complaint) Primary open-angle glaucoma, moderate stageAge-related nuclear cataract, bilateralMyopia, bilateralPresbyop ia 6 Oberreiter Yazmin. [address], [place], [place], [id number], [place]. tel:[phone] Referring Provider: Yazmin Esparza, [address], [place], [address]. tel:[phone] [facility], [address] [place] [address], [id number] , [place] tel:[phone] [facility] No Information 6 Oberreiter Yazmin. [address], [place], [place], [id number], [place]. tel:[phone] Referring Provider: Yazmin Esparza, [address], [place], [address]. tel:[phone] [facility], [address] [place] [address], [id number] , tel: [phone] [facility] no problems with vision and no complaints (chief complaint)n o problems with vision and no complaints (chief complaint) Primary open angle glaucomaMild Stage Glaucoma 5 Gwyn Arce. [address], [place], [place], [id number], [place]. tel:[phone] Referring Provider: Yazmin Espraza, [address], [place], [address]. tel:[phone] [facility], [address] [place] [address], [id number] , tel: [phone] [facility] blurry vision (chief complaint)b lurry vision (chief complaint) Mild Stage GlaucomaPrimary open angle glaucomaSenile nuclear sclerosis Gwyn Arce. [address], [place], [place], [id number], [place]. tel:[phone] Referring Provider: Yazmin Esparza, [address], [place], [address]. tel:[phone] [facility], [address] [place] [address], [id number] , [place] tel: [phone] [facility] no problems with V/A and no complaints (chief complaint) Primary open angle glaucomaMild Stage Glaucoma 3 Apte Juanita. [address] [place] [address], [address], [place]. [phone] Referring Provider: Juanita Means V, [address] [place] [address], [address]. tel:[phone] [facility], [address] [place] [address], [id number] , tel:[phone] [facility] no problems with V/A and no complaints (chief complaint) Primary open angle glaucomaMild Stage Glaucoma Oct-0 4-201 3 Apte Juanita. [address] [place] [address], [facility], [place]. tel:[phone] Referring Provider: Juanita Means V, [address] [place] [address], [facility]. tel:[phone] [facility], [address] [place] [address], [id number] , [phone] [facility] no problems with V/A and no complaints (chief complaint) Primary open angle glaucomaMild Stage Glaucoma Sep-2 0-201 3 Apte Juanita. [address] [place] [address], [facility], . tel:[phone] Referring Provider: Juanita Means V, [address] [place] [address], [facility]. tel:[phone] [facility], [address] [place] [address], [id number] , tel:[phone] [facility] no problems with V/A and no complaints (chief complaint) Primary open angle glaucomaMild Stage GlaucomaSenile nuclear sclerosis Chaim-0 - 3 Brian Comer. [address] [place] [address], [address] [facility], [place], [place], [id number], [place]. tel:[phone] Referring Provider: Souleymane Haro, [address] [place] [address] [address], [place], [address]. tel:[phone] [facility], [address] [place] [address], [id number] , [place] tel:[phone] [facility] no problems with V/A and no complaints (chief complaint) Primary open angle glaucomaMild Stage Glaucoma Mar-0 7-201 3 Brian Comer. [facility], [address] [place] [address], [id number], . tel:[phone] Referring Provider: Souleymane Haro, [address] [place] [address] [address] [facility], [place], [address]. [phone] [facility], [address] [place] [address], [id number] , [phone] [facility] no problems with V/A and no complaints (chief complaint) Primary open angle glaucomaMild Stage GlaucomaSenile nuclear sclerosisVitreous degenerationOther vitreous opacities Fe 6 3 Knlakshmi Comer. [address] [place] [address], [address] [place] [address], [address] [place] [address], . [phone] Referring Provider: Souleymane Haro, [address] [place] [address] [address] [place] [address], [address]. tel:[phone] [facility], [address] [place] [address], [id number] , tel:[phone] [facility] no problems with V/A and no complaints (chief complaint) Vitreous degenerationOther vitreous opacitiesPrimary open angle glaucomaMild Stage GlaucomaSenile nuclear sclerosisVitreous degenerationOther vitreous opacities 2 Knlakshmi Comer. [address] [place] [address] [address] [place] [address], [id number], [place]. [phone] Referring Provider: Souleymane Haro, [address] [place] [address] [address] [place] [address], [address]. [phone] [facility], [address] [place] [address], [id number] , tel:[phone] [facility] no problems with V/A and no complaints (chief complaint) Primary open angle glaucomaMild Stage Glaucoma 2 Brian Comer. [address] [place] [address], [address] [place] [address], [id number], [place]. tel:[phone] Referring Provider: Souleymane Haro, [address] [facility] [address], [place], [address]. tel:[phone] [facility], [address] [place] [address], [id number] , tel:[phone] [facility] no problems with V/A and no complaints (chief complaint) Primary open angle glaucomaMild Stage Glaucoma 2 Brian Comer. [address], [place], [place], [id number], [place]. tel:[phone] Referring Provider: Souleymane Haro, [facility] [address], [place], [address]. tel:[phone] [facility], [address] [place] [address], [id number] , tel:[phone] [facility] Reports no problems with V/A and no complaints (chief complaint) Primary open angle glaucomaMODERATE STAGE GLAUCOMASenile nuclear sclerosisMILD STAGE GLAUCOMA 2 Brian Comer. [address] [facility], [address] [place] [address], [id number], [place]. tel:[phone] Referring Provider: Souleymane Haro, [facility] [address] [facility] [address], [place], [address]. tel:[phone] [facility], [address] [place] [address], [id number] , tel:[phone] [facility] Reports no problems with V/A and no complaints (chief complaint) Primary open angle glaucomaMODERATE STAGE GLAUCOMASenile nuclear sclerosis 1 Brian Comer. [address], [place], [id number], [place]. tel:[phone] Referring Provider: Souleymane Haro, [address] [facility] [address], [place], [address]. tel:[phone] [facility], [address] [place] [address], [id number] , tel:[phone] [facility] No Information 1 Brian Comer. [address] [place] [address], [address] [facility], [place], [place], [id number], . [phone] Referring Provider: Souleymane Haro, [address] [place] [address] [address] [facility], [place], [address]. [phone] [facility], [address] [place] [address], [id number] , tel:[phone] [facility] No Information 1 Brian Comer. [address] [place] [address], [address] [facility], [place], [place], [id number], . [phone] Referring Provider: Souleymane Haro, [address] [place] [address] [address] [facility], [place], [address]. [phone] [facility], [address] [place] [address], [id number] , tel:[phone] [facility] No Information 0 Brian Comer. [address] [place] [address] [place] [address], [id number], . [phone] Referring Provider: Souleymane Haro, [address] [place] [address] [address] [facility], [place], [address]. [phone] Family History Family Member Type Diagnosis Age At Onset Mother Problem (finding) glaucoma Problem (finding) No Family hist ory of Macular Degeneration Grandmother Problem (finding) Diabetes mellitus Mother Problem (finding) HBP Mother Problem (finding) cataract Payers Payer name Insurance type Covered green party ID Authorluz mariaa tileidy(s) Medicare [place] [id number] [employer] [place] [id number] Social History Type Description Quantity Date Captured Comments Alcohol Use Details Unknown Caffeine Use Details Unknown Tobacco Use Status No Information Smoking Status No Information Sex Female Chief Complaint And Reason For Visit No Information Reason For Referral Reason For Referral No Information Plan Of Treatment Date Type Action Status Referral Referred To: Nitesh Harrell MD [address] [place], [address] Ordered: Referrals: Family Medicine. Nitesh Harrell MD. Assume care ordered Future Order: Radiology Order OP H- OCT (Nerve) (OCTnerve), Collected on: Ordered Future Order: Radiology Order OP H- OCT (Nerve) (OCTnerve), Collected on: Ordered History Of Present Illness Encounter Date Complaint History Of Prese nt Illness no problems with vis ion and no complaints The 70 Year old female presents for f/u Dry ARMD OU, IOL OU, PAOG OU. Pt reports no problems with vision and no complaints in the right eye and left eye since last exam. Pt reports vision good, stable and constant D & N c gls. The patient denies pain or discomfort and COVID-19 symptoms - temperature normal. Pt uses Timolol Maleate QD OU, Latanoprost QHS OU, Refresh PRN 2-3x weekly w relief. no problems with vis ion and no complaints The 68 Year old female presents for follow up ARMD OU, POAG OU, IOL OU, Presbyopia OU. Pt states that she has no problems with vision and no complaints in the right eye and left eye since last exam. Vision good, stable and constant D & N c gls. The patient denies pain or discomfort. Pt states that she uses Timolol qAM OU, Latanoprost qHS OU, AReds PO 1xday, Refresh PRN OU. no problems with vis ion and no complaints The 68 Year old female presents for PO Yag PC Laser OU. Pt has a hx of STD IOL OU, POAG, and dry ARMD. Pt reports no new problems with vision and no complaints in the right eye and left eye. since last exam ago. Vision good, stable and constant D & N c gls.. The patient denies pain or discomfort. Using timolol OU qAM, and Latanoprost oU HS blurry vision The 68 Year old female presents for F/U PCO OS, Dry AMD OU & POAG OU. Pt reports blurry vision in the left eye since last exam. It affects both near and far vision OS c gls. Pt states vision has improved OD since laser c gls. The patient denies pain but states she has frequent dryness OU. Using Timolol QAM OU, Latanoprost QHS OU & Refresh 2-3x daily OU. Also taking AREDS-2 BID PO. blurry vision The 68 Year old female presents for follow up of POAG/PCO OU. Pt reports continued blurry vision in the right eye and left eye since last exam. It affects both near and far vision c gls OU. The patient denies pain or discomfort. Using Refresh gtt BID OU, Timolol gtt qAM OU, and Latanoprost gtt qHS OU. decreased vision The 68 Year old female presents for follow up of POAG OU. Pt reports decreased vision in the right eye and left eye since last exam. It affects distance vision c gls OU. NVA is good and stable c gls OU. The patient denies pain or discomfort. Using Refresh gtt BID OU, Timolol gtt qAM OU, Latanoprost gtts qHS OU, and taking Areds 2 eye vit BID po. no problems with vis ion and no complaints The 68 Year old female presents for dilated exam. Pt has a hx of POAG, and STD IOL set for near. Pt reports no problems with vision and no complaints in the right eye and left eye. since last exam ago. Vision good, stable and constant D & N c gls.. The patient denies pain or discomfort, however reports increased dryness OU. USing Timolol OU qAM, and Latanoprost OU HS no problems with vis ion and no complaints The 67 Year old female presents for IOP ck. Pt has a hx of mild stage OAG. Pt reports of no new problems with vision and no complaints in the right eye and left eye. since last exam ago. Vision good, stable and constant D & N c gls.. The patient denies pain or discomfort. Uses Timolol 0.5% OU qAM, Latanoprost OU HS, and AT OU QD dryness The 67 Year old female presents for follow-up of POAG OU. Pt. reports dryness in the right eye and left eye since last exam. Vision good, stable and constant D & N c gls. The patient denies pain. Using AT usually 1 gtt daily OU, Timolol q AM OU, and Latanoprost q HS OU. no problems with vis ion and no complaints The 67 Year old female presents for follow up of Presbyopia OU, POAG OU, and IOL (OD-04/12/16, OS 03/29/16). Pt reports of no problems with vision and no complaints in the right eye and left eye since last exam 4 months ago. Vision good, stable and constant D & N c gls OU. The patient denies pain or discomfort. Using Latanoprost gtt qHS, and Timolol gtt qAM OU. no problems with vis ion and no complaints The 66 Year old female presents for follow up of POAG OU. Pt reports of no problems with vision and no complaints in the right eye and left eye since last exam 1 month ago. Vision good, stable and constant D & N c gls OU. The patient denies pain or discomfort. Using Latanoprost gtt qHS OU, and Timolol gtt qAM OU. redness, blurry, and pain The 66 Year old female presents for evaluation of redness, blurry, and pain in the left eye. The onset was this morning. The condition is not any better. No Sx OD. D&N is good and stable c gls OD. Using Timolol gtt qAM OU, and Latanoprost gtt qHS. sore and tired The 66 Year old female presents for evaluation of sore and tired in the right eye and left eye. It started about 3 week(s) ago. The onset was gradual. It affects both near and far vision. It occurs constantly and she reports frequent blinking to clear vision. The condition is not any better. The condition is described as dry. Removes glasses to read. Using Combigan OU BID and Latanoprost OU QHS. Reports I just hate using the Combigan because I feel like my eyes will be sore after. Has used Refresh infrequently. no problems with vis ion and no complaints The 66 Year old female presents for PO visit. Patient S/P Std IOL (near) OD 04/12/16 and OS (near) 03/29/16. Patient reports of no problems with vision and no complaints in the right eye and left eye. since last exam ago. Vision good, stable and constant D & N c gls.. The patient denies pain or discomfort. Using Prednisilone OU BID, using Latanoprost OU HS denies pain or discomfort denies pain or discomfort OD Not sure if va is better or not Not sure if va is better or not OD vision brighter vision brighter OS denies pain or discomfort denies pain or discomfort OS blurry vision blurry vision OD blurry vision The 66 Year old female presents for evaluation of blurry vision in the left > right eye. It started about 6 month(s) ago. The onset was gradual. It affects both near and far vision. It occurs constantly. The condition is worsening. The condition is described as having glare. In addition, the condition is associated with driving at night. The patient denies pain or discomfort. Uses Betimol OU QAM and Latanoprost OU QHS. dryness The 66 Year old female presents for f/u of POAG OU. Pt reports of dryness in the right and left eye, since last exam 4 months ago. Pt says that if she falls asleep sitting up on the couch she wakes up with very dry eyes and slight pain. Pt isn't sure if she sleeps with her eyes open, but this doesn't happen when she sleeps in her bed. Vision good, stable and constant D & N c gls OU. Pt using Latanoprost q HS OU and Timolol q AM OU. no problems with vis ion and no complaints The 65 Year old female presents for IOP ck and ON OCT today. Patient has a HX of Mild stage OAG. Patient reports of no problems with vision and no complaints in the right eye and left eye. since last exam 3 mo ago. Vision good, stable and constant D & N c gls.. The patient denies pain or discomfort. Using Latanoprost OU HS, and Timolol OUQam no problems with vis ion and no complaints The 65 Year old female presents for IOP ck. Patient has a HX of Mild stage OAG. Patient reports of no problems with vision and no complaints in the right eye and left eye. since last exam 3 mo ago. Vision good, stable and constant D & N c gls.. The patient denies pain or discomfort. Using Latanoprost OU HS, and Timolol OU Qam blurry vision The 65 Year old female presents for evaluation of blurry vision in the left > right. It started about 3 month(s) ago. Reports blinking to clear vision and looking thru the lower part of her glasses at distance. She often removes them for reading and looks over them at computer. The onset was gradual. It affects both near and far vision. It occurs frequently. The condition is moderate. The condition is described as weeping/ tearing. The patient denies pain or discomfort. Using Latanoprost OU QHS. No tears. Also takes PO Diazide. no problems with vis ion and no complaints The 64 Year old female presents for f/u IOP ck due to switching from Lumigan to Latanoprost OU QHS. Reports no changes with vision and no complaints in the right eye and left eye for about 1 month. Vision good, stable and constant D & N c gls.. It occurs constantly. The condition is stable. The patient denies pain or discomfort. Pt is using Latanoprost OU QHS. blurry vision The 64 Year old female presents for evaluation of blurry vision in the left > right eye. It affects both near and far vision. It occurs frequently. The condition is worsening. In addition, the condition is associated with driving at night. Using Lumigan OU QHS. Reports she discontinued Timolol approx. 4 months ago per self, Dr. Torres only tried that one because of the insurance . Denies pain or discomfort. 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 Related to Primary open-angle glaucoma, bilateral, mild stage Follow up - Return i n 4 months with DEBRA for Refract T & D , OCT (ON). Related to Primary open-angle glaucoma, bilateral, mild stage Impression/Plan - 1. Intraocular pressure well controlled, tolerating medications. Will continue with same regimen. Timolol 0.5% OU qAM, Latanoprost OU HS, and AT OU QD. Pt. is to f/u in 4 months for a dilated exam. Related to Primary open-angle glaucoma, bilateral, mild stage Follow up - Return i n 4 months with DEBRA for T, Slamp. Impression/Plan - 1. Intraocular pressure well controlled 14 OU, tolerating medications. Will continue with same regimen. Timolol OU qAM, Latanoprost OU HS, and AT. HVF results reviewed with pt. Stable no progression. TCI questions/concerns Follow up - Return i n 4 months with DEBRA for T, Slamp , Visual Field (24-2). Impression/Plan - 1. POAG (mild stage) OU: IOP's are stable OU. OCT today showed no progression OU. Pt. is to continue using Latanoprost gtt qHS, and Timolol gtt qAM OU. Pt. is to have HVF in 4 months. 2. Dry eye OU: Mild. Recommend Pt. start using an artificial tear like Systane or Refresh PRN OU for dryness and comfort. Etiology and effects on vision discussed in detail with pt. Patient advised of benefits of using chronic lubrication.3. PCO OU: Mild. Pt. is to let us know if vision ever becomes bothersome and we can send Pt. for a YAG PC. Will monitor. 4. Optional update for glasses. Return in 3-4 months with DEBRA for Refract T & D , OCT (ON). Related to Primary open-angle glaucoma, bilateral, mild stage Follow up - Return i n 3-4 months with DBERA for Refract T & D , OCT (ON). Related to Primary open-angle glaucoma, bilateral, mild stage Impression/Plan - HV F today showed an enlarged blind spot OU, but stable with no progression. IOP's are great OU. IOP stable, well controlled. Continue using current medication(s), Latanoprost gtt qHS OU, and Timolol gtt qAM OU. Will continue to monitor IOP. See Pt. back in 4 months with DEBRA. Pt. will be due for dilation and OCT(ON). Related to Primary open-angle glaucoma, bilateral, mild stage Follow up - As scheduled Impression/Plan - Garber bconjuncitval hemmorhage is present OS. Advised that patient broke a very large vessel in left eye. This could be caused by straining, lifting to much, rubbing hard, coughing to hard, or sneezing to hard. No infections present. Okay to use AT BID-TID OS x 1-2 weeks to help hydrate and promote to absorb blood faster. Advised to continue all Glaucoma drops as directed. If in 2 weeks, the hemmorhage doesnt resolve, come in RONNIE. Follow up - Return i n 4 months with DEBRA for T, Slamp , Visual Field (24-2). Impression/Plan - 1. POAG (mild stage) OU: Intraocular pressure well controlled, tolerating medications. Pt is to discontinue using Combigan due to side effect. Continue using Timolol q AM OU and Latanoprost q HS OU. Will continue to monitor IOP's. 2. IOL OU: Well centered. 3. Dry eye OU: Moderate. Pt encouraged to use the artificial tears BID-QID OU for dryness and comfort. 4. Refractive error OU: New glasses Rx was given today. Optional update. See pt back in 4 months for T, SLamp and HVF. Impression/Plan - 1. IOL OU: Well centered and clear. Vision has improved. Pt may update glasses at this time or can wait and we can re-check at f/u in 1 month. 2. POAG (mild stage) OU: Pt request to wait on glasses and have them re-checked in 1 month at f/u visit. (No charged today's refraction). Follow up - Return i n 1 month with DEBRA for Refract, Aimee Ndiaye Impression/Plan - IO P is good today @ 20 & 21. Glaucoma appears stable. Continue Latanoprost gtts q HS OU & Timolol gtts q AM OU. Cataracts present OU; best option is surgery. Patient viewed Dr. Phillips's cataract video. In the video, explained cataract surgery procedure. Risks with surgery include bleeding, swelling, infection, need for more surgery and loss of vision. Only one eye is done at a time. May have irritation for a few days following surgery. IOL options to choose from based on the health of your eyes: 1. Basic cataract surgery: will need glasses distance & near after surgery. 2. Astigmatism correction: Best distance vision. Will need glasses for near. 3. Multifocal w/ some astigmatism correction: 95% of activities without glasses; may need glasses for very near tasks and low lighting situations. Pt. is a good LenSx candidate if she chooses PV. Pt. doesn't mind wearing glasses after surgery so will do standard lens implants OU set for near @ -3.00 to -3.50 OU so she can still see up close without glasses. Will do OS first, OD about a week later. recommends pt. have iStent OU to help better control glaucoma but pt. declines. In the future, may need laser on the cloudy membrane around the lens implant. Pt. to call if problems. Follow up - per surgery Follow up - Return i n 4 months with DEBRA for TCarolamp. HVF (or) may sched c RML for Cataract eval Impression/Plan - 1. Intraocular pressure well controlled at 16-15, tolerating medications. Will continue with same regimen. Latanoprost OU HS, and Timolol OU qAM. 2. Discussed Cataracts with patient, explained they do meet all the criteria for surgical removal. Patient may elect to proceed with surgery whenever she is ready. Reviewed different IOL options, with possible ISTENT Return in 4 months w ith DEBRA for TCarolamp. Related to Primary open-angle glaucoma, mild stage Impression/Plan - 1. Intraocular pressure well controlled, tolerating medications. Will continue with same regimen. cont. Timolol OU qAM, and Latanoprost OU HS. OCT results reviewed, no progression2. Cataracts OU with progression OS>OD, will cont. to monitor3. Back of the eye looks healthy, no retinal tears or hole's. Related to Primary open-angle glaucoma, mild stage Follow up - Return i n 4 months with DEBRA for T, Slamp. Related to Primary open-angle glaucoma, mild stage Follow up - Return i n 6 months with DEBRA for T & D/OCT Impression/Plan - 1. POAG (mild stage) OU: IOP's are really good today. Pt is to continue using Latanoprost q HS OU and Timolol OU QAM. Follow up - Return i n 3 months with DEBRA for T, Slamp. Impression/Plan - 1. POAG (mild stage) OU: IOP's are up today. Pt is to continue using Latanoprost q HS OU. Todays HVF showed no defect OU, but the nerves are really large. DEBRA wants pt to start Timolol OU QAM. 2. Cataracts OU: Cataracts account for the patient's complaints. No treatment currently recommended. The patient will monitor vision changes and contact us with any decrease in vision.3. Refractive Error OU: New glasses Rx was given today. Follow up - Return i n 4 months with DEBRA for T, Slamp , Visual Field (24-2). Impression/Plan - 1. POAG (mild stage) OU: IOP's are stable today. Latanoprost is controlling IOP's. Pt is to continue using Latanoprost q HS OU. See pt back in 4 months for HVF. Follow up - Return i n 6 months with DEBRA for T, Slamp. HVF Impression/Plan - 1. gls rx update avail. 2. Intraocular pressure well controlled at 18-16, tolerating medications. . OCT results reviewed no changes from previous test. Will try generic Lumigan (Latanoprost) OU HS for insurance reasons. Will re-ck IOP in 1 mo. to see if Generic gtt is adequate at holding pressure down. 3. Cataracts OU, no need for treatment will cont. to monitor4. Back of eye looks good, no retinal tear's or hole's. no ARMD - Return in 4 months with DVA for T and slamp. Related to Primary open angle glaucoma Primary open angle g laucoma OU. Condition: will continue to monitor. MILD STAGE GLAUCOMA OU. Condition: will continue to monitor. - POAG OU: IOP are 18 today, happy with this IOP. Continue with timolol BID OU and Lumigan q hs OU. Pt would be a good candidate for SLT, especially she wants to get off drops. explained SLT (selective laser trabeculoplasty) to pt in detail. SLT is a low risk outpatient procedure, that helps the drain to work better. After treament IOP may increase but can be repeated if necessary, risks include but not limited to blurry vision, inflammation and possible inefficacy. All questions and concerns were answered, pt states they understand. Related to Primary open angle glaucoma - Return in 4 weeks with DVA for T and slamp. Related to Primary open angle glaucoma Primary open angle g laucoma OU. Condition: will continue to monitor. MILD STAGE GLAUCOMA OU. Condition: will continue to monitor. - POAG: IOP are not any lower. Pt is not keen on doing SLT so pt needs start another drop to bring IOP down. Start Lumigan q hs OU. Lumigan can cause lashes to grow and redness in and around eyes. If this gtt does not work will need to consider Azopt or Brimonidine. Related to Primary open angle glaucoma Primary open angle g laucoma OU. Condition: will continue to monitor. MILD STAGE GLAUCOMA OU. Condition: will continue to monitor. - POAG: pt has large C/D ratio, but do not have significant field loss OU. Pressures need to be a little lower, make sure not to forget drops. Another option for pt if is SLT, especially since pt misses drops. If this laser works and lowers and keeps IOP stable may be able to discontinue gtts. explained SLT (selective laser trabeculoplasty) to pt in detail. SLT is a low risk outpatient procedure, that helps the drain to work better. After treament IOP may increase but can be repeated if necessary, risks include but not limited to blurry vision, inflammation and possible inefficacy. All questions and concerns were answered, pt states they understand. Pt would like to hold off on SLT. Continue Timolol BID OU. If IOP are not lower will consider putting pt back on Lumigan or SLT. Educational materials provided:SLT. Related to Primary open angle glaucoma - Return in 2 weeks with DVA for T and slamp. Related to Primary open angle glaucoma - Return in 3 months with DVA for T, Slamp HVF 30-2 Related to Primary open angle glaucoma Primary open angle g laucoma OU. Condition: will continue to monitor. MILD STAGE GLAUCOMA OU. Condition: will continue to monitor. Senile nuclear sclerosis OU. Condition: will continue to monitor. - 1. OAG/Mild stage OU: IOP target upper times. Meeting target with current gtts. CONT: Timolol .5% BID OU. 2. Cataracts OU: No need for surgery at this time. Will continue to observe condition and or symptoms. Related to Primary open angle glaucoma - Return in 3 months with SHAYNE for T and slamp. Related to Primary open angle glaucoma Primary open angle g laucoma OU. Condition: stable. MILD STAGE GLAUCOMA OU. Condition: stable. - 1. OAG OU: IOP target upper teens. Meeting after starting Timolol per insurance preferenceCONT: Timolol .5% OU BID Educational materials provided:none needed. Related to Primary open angle glaucoma - Return in 4 weeks with SHAYNE for Related to Primary open angle glaucoma Primary open angle g laucoma OU. Condition: will continue to monitor. MILD STAGE GLAUCOMA OU. Condition: will continue to monitor. - 1. OAG OU: IOP target upper teens. Not meeting with drops after switching to Travatan Z (per insurance.) SHAYNE explained to patient that if Lumigan not preferred by insurance, we have to try all of the preferred glaucoma meds on her plan prior to requesting an exception for a non-preferred medication. Proper instillation technique reviewed with patient.D/C: Travatan Z START: Timolol .5% OU BID2. Cataract OU: No surgery indicated Educational materials provided:none needed. Related to Primary open angle glaucoma Primary open angle g laucoma OU. Condition: will continue to monitor. Related to Primary open angle glaucoma - Return in 3 months with SHAYNE for T and slamp. Related to Primary open angle glaucoma Primary open angle g laucoma OU. Condition: well controlled. MILD STAGE GLAUCOMA OU. Condition: well controlled. Senile nuclear sclerosis OU. Condition: well controlled. PVD OU. Condition: well controlled. Floaters OU. Condition: well controlled. - 1. OAG OU: IOP target upper teens. Meeting with drops and improved instillation technique. CONT: [facility] OU.2. Cataract OU: No surgery indicated3. PVD with floaters: Asymptomatic at this time. a. Will continue to monitor IOP. Educational materials provided:none needed. Related to Primary open angle glaucoma - Return in 3 months with SHAYNE for Ref T & D and OCT (ON). Related to Primary open angle glaucoma - Repeat visual field in 1 year OU. Related to Central 30-2 test performed. LISSET FAST strategy used. High false positive and negative errors. Primary open angle g laucoma OU. Condition: established, stable. MILD STAGE GLAUCOMA OU. Condition: established, stable. - 1. OAG OU: IOP target high teens. Meeting today w drops OU a. Will continue to monitor IOP. Educational materials provided:none needed. CONT: [facility] OU Related to Primary open angle glaucoma - Repeat visual field in 1 year OU. Related to Central 30-2 test performed. LISSET FAST strategy used. High false positive and negative errors. - Return in 6wks wit h SHAYNE for Visual Field (30-2), T and slamp. Related to Primary open angle glaucoma Primary open angle g laucoma OU. Condition: will continue to monitor. MILD STAGE GLAUCOMA OU. Condition: will continue to monitor. - 1. OAG OU: IOP target high teens. Not meeting today w drops a. Medication instillation reviewed. Continue using current medication(s). Will continue to monitor IOP.CONT: [facility] OU Related to Primary open angle glaucoma MILD STAGE GLAUCOMA OU - Addendum:Letter to Dr. Nitesh Harrell MD done Related to MILD STAGE GLAUCOMA - 3 m c SHAYNE/IOP check Related to Primary open angle glaucoma OAG OU MILD OU Targe t IOP = high teens, meeting. (CD= 11/27, OCT , VF Uninterpretable, Pachy 540/542) Senile nuclear sclerosis OU - OAG: OU; meeting target IOP's (Target: High teens). c gtts->Continue: Roberto white HS: OUCat: OU - no progressionLetter to Dr. Salmeron Related to Primary open angle glaucoma - 3-4 mos for tension, gonio Rel ated to Primary open angle glaucoma Oct Primary open angle g laucoma OU MODERATE STAGE GLAUCOMA OU Target IOP = high teens, meeting. Senile nuclear sclerosis OU - OAG: OU; meeting target IOP's (TARGET: HIGH TEENS).Continue: Roberto white HS: OUCat: OU - no progressionLetter to Dr. Salmeron DONE Related to Primary open angle glaucoma Assessments Type Assessment Date No Information Patient Care Teams Name Effective Dates (start - stop) Status Members No Information
--- OUTSIDE RECORDS SUMMARY | 2024-04-07 01:58 | XMS_ITS | Encounter Summary ---
Author Organization [facility] Address [address] [place] [address]. [place], [place] [address] [place] [address] Care Team Providers Care Director Of Strategic Communications Name Role Phone Unavailable Primary Care Provider Unavailabl e Encounter Details Date Type Department Care Team (Late st Contact Info) Description 08/01/2002 Abstract [facility] [address] [place] [address] , Tatyana Harrison MD Social History [...]
--- OUTSIDE RECORDS SUMMARY | 2024-04-07 01:58 | XMS_ITS | Encounter Summary ---
Author Organization [facility] Address [address] [place] [address]. [place], [place] [address] [place] [address] Care Team Providers Care Merry Go Round Attendant Name Role Phone Unavailable Primary Care Provider Unavailabl e Encounter Details Date Type Department Care Team (Late st Contact Info) Description 08/05/2003 Abstract [facility] [address] [place] [address] , Tatyana Harrison MD Social [...]
--- OUTSIDE RECORDS SUMMARY | 2024-04-07 04:06 | XMS_ITS | Continuity of Care Document ---
Author Organization [facility] Address [address] [place] [address] Care Team Providers Care Digital Analyst Name Role Phone Nitesh Harrell Primary Care Physician Encounter [facility]LE H[facility] [id number] Date(s): 02/27/24 - 02/27/24 [facility] [address] [address]- Discharge Disposition: Home or Self Care Attending Physician: Nitesh Harrell MD Allergies, Adverse Reactions, Alerts Substance Criticality Severity Reaction Reaction Severity Status penicillin Active Immunizations Given and Recorded Vaccine Date Status Refusal Reason SARS-CoV-2 (COVID-19) mRNA BNT-162b2 vax 06/23/20 Recorded SARS-CoV-2 (COVID-19) mRNA BNT-162b2 vax 05/30/20 Recorded Medications atorvastatin 20 mg oral tablet 20 mg = 1 tab, Oral, Daily, at bedtime, # 90 tab, 2 Refill(s), Pharmacy: [facility] [id number] [facility] Start Date: 04/16/22 Status: Ordered latanoprost ophthalmic every evening, 0 Refill(s) Start Date: 12/03/19 Status: Ordered timolol Oral, BID, 0 Refill(s) Start Date: 12/03/19 Status: Ordered triamterene-hydrochlorothiazide 37.5mg-25mg oral capsule 1 cap, Oral, Daily, # 90 cap, 0 Refill(s), Pharmacy: [facility] #[id number], 167.64, cm, 05/16/23 12:07:00 [facility], Height, 114.31, kg, 05/16/23 12:07:00 [employer], Weight Dosing Start Date: 02/22/24 Status: Ordered Problem List Condition Confirmation Course Effective Dates Status Health St atus Informant Macular degeneration Confirmed Active Dyslipidemia Confirmed Active Glaucoma Confirmed Active High blood pressure Confirmed Active Edema Confirmed Active Procedures Procedure Date Related Diagnosis Body Site Status Breast biopsy and related procedures 08/31/17 Completed Caesarean section Complet ed Mammogram Completed Social History Social History Type Response Tobacco Former tobacco user Tobacco Use:. Sex Sex Representation Female (finding) Patient Care team information Care Team Personnel Name: Nitesh Harrell MD Position: Physician Member Role: Primary Care Physician Address: [address] [place] [address] Insurance Providers Guarantor name: HENRRY AGUIRRE Health Plan Information #: 2 Payer: [facility] Commercial Member Number: [id number] Policy Number: NA Health Plan Information #: 1 Payer: MEDICARE Member Number: [id number] Policy Number: NA
--- OUTSIDE RECORDS SUMMARY | 2024-04-07 04:06 | XMS_ITS | Continuity of Care Document ---
Author Organization [facility] Address [address] [place] [address] Care Team Providers Care Pump Rebuilder Name Role Phone Nitesh Harrell Primary Care Physician Encounter KOLE LIZ [id number] Date(s): 03/02/21 - 03/02/21 [facility] [address] [place] [address] Encounter Diagnosis High blood pressure(Discharge Diagnosis) - 03/02/21 Morbid obesity(Discharge Diagnosis) - 03/02/21 Macular degeneration(Discharge Diagnosis) - 03/02/21 Discharge Disposition: Home or Self Care Attending Physician: Nitesh Harrell MD Allergies, Adverse Reactions, Alerts Substance Reaction Severity Status penicillin Active Functional Status 03/02/21 Recent Travel History No recent travel Other exposure to Infectious Disease Non e Immunizations Given and Recorded Vaccine Date Status Refusal Reason SARS-CoV-2 (COVID-19) mRNA BNT-162b2 vax 06/23/20 Recorded SARS-CoV-2 (COVID-19) mRNA BNT-162b2 vax 05/30/20 Recorded Medications latanoprost ophthalmic every evening, 0 Refill(s) Start Date: 12/03/19 Status: Ordered timolol Oral, BID, 0 Refill(s) Start Date: 12/03/19 Status: Ordered triamterene-hydrochlorothiazide 37.5mg-25mg oral capsule 1 cap, Oral, Daily, # 90 cap, 1 Refill(s), Pharmacy: [facility] [id number] [facility] Start Date: 03/02/21 Status: Ordered Problem List Condition Effective Dates Status Health Status Inform ant Macular degeneration(Confirmed) Active Glaucoma(Confirmed) Active High blood pressure(Confirmed) Active Edema(Confirmed) Active Procedures Procedure Date Related Diagnosis Body Site Status Breast biopsy and related procedures 08/31/17 Completed Caesarean section Complet ed Mammogram Completed Vital Signs Most recent to oldest [Reference Range]: 1 Temperature Oral [35.8-37.3 Deg C] 36.9 Deg C (03/02/21 10:04 AM) Peripheral Pulse Rate [60-100 bpm] 65 bp m (03/02/21 10:04 AM) Blood Pressure [90-140/60-90 mmHg] 138/7 8mmHg (03/02/21 10:04 AM) Weight 123.38 kg (03/02/21 10:04 AM) Weight Measured (lbs) 272.006 lb (03/02/21 10:04 AM) Height 165.10 cm (03/02/21 10:04 AM) Height/Length Measured (inches) 65 inch (03/02/21 10:04 AM) BSA Measured 2.38 m2 (03/02/21 10:04 AM) Body Mass Index 45.26 kg/m2 (03/02/21 10:04 AM) Social History Social History Type Response Smoking Status Former smoker, quit more than 30 days ago entered on: 03/02/21 Sex
--- OUTSIDE RECORDS SUMMARY | 2024-04-07 04:06 | XMS_ITS | Continuity of Care Document ---
Author Organization [facility] Address [address] [place] [address] Care Team Providers Care Mercerizer Name Role Phone Nitesh Harrell Primary Care Physician [phone] Encounter KOLE LIZ [id number] Date(s): 04/16/22 - 04/16/22 [facility] [address] [place] [address] Encounter Diagnosis High blood pressure(Discharge Diagnosis) - 04/16/22 Dyslipidemia(Discharge Diagnosis) - 04/16/22 Morbid obesity(Discharge Diagnosis) - 04/16/22 Discharge Disposition: Home or Self Care Attending Physician: Nitesh Harrell MD Referring Physician: Nitesh Harrell MD Allergies, Adverse Reactions, Alerts Substance Reaction Severity Status penicillin Active Functional Status 04/16/22 Family Member Travel History No recent t ravel Recent Travel History No recent travel Other exposure to Infectious Disease Non e Immunizations Given and Recorded Vaccine Date Status Refusal Reason SARS-CoV-2 (COVID-19) mRNA BNT-162b2 vax 06/23/20 Recorded SARS-CoV-2 (COVID-19) mRNA BNT-162b2 vax 05/30/20 Recorded Medications atorvastatin 20 mg oral tablet 20 mg = 1 tab, Oral, Daily, at bedtime, # 90 tab, 2 Refill(s), Pharmacy: [facility] Start Date: 04/16/22 Status: Ordered latanoprost ophthalmic every evening, 0 Refill(s) Start Date: 12/03/19 Status: Ordered timolol Oral, BID, 0 Refill(s) Start Date: 12/03/19 Status: Ordered triamterene-hydrochlorothiazide 37.5mg-25mg oral capsule 1 cap, Oral, Daily, # 90 cap, 2 Refill(s), Pharmacy: [facility] Start Date: 04/16/22 Status: Ordered Problem List Condition Confirmation Course [...] Range]: 1 Temperature Oral [35.8-37.3 Deg C] 37.0 Deg C (04/16/22 11:33 AM) Peripheral Pulse Rate [60-100 bpm] 74 bp m (04/16/22 11:33 AM) Respiratory Rate [12-24 br/min] 22 br/mi n (04/16/22 11:33 AM) Blood Pressure [90-140/60-90 mmHg] 140/8 2mmHg (04/16/22 11:33 AM) Weight 122.47 kg (04/16/22 11:33 AM) Weight Measured (lbs) 270 lb (04/16/22 11:33 AM) Height 167.64 cm (04/16/22 11:33 AM) Height/Length Measured (inches) 66 inch (04/16/22 11:33 AM) BSA Measured 2.39 m2 (04/16/22 11:33 AM) Body Mass Index 43.58 kg/m2 (04/16/22 11:33 AM) Social History Social History Type Response Tobacco Never tobacco user T obacco Use:. Sex Physician Outpatient Note * Nitesh Harrell MD: PERFORM Event Display: Office Clinic Note Physician Authored Date: [id number] HENRRY AGUIRRE :1950 Age:72 years Sex:Female Visit Date:04/16/2022 Primary Care Physician: Nitesh Harrell MD Chief Complaint Office visit for refill of her medications History of Present Illness History of hypertension??needs medication refill??noted her cholesterol is elevated??will??atorvastatin 20 mg??daily??blood test??was reviewed??with the patient Review of Systems Constitutional:?No??fevers,?No??chills,?No??sweats Eye:?No??recent visual problems ENT:?No??ear pain,?No??nasal congestion,?No??sore throat Respiratory:?No??shortness of breath,?No??cough Cardiovascular:?No??Chest pain,?No??palpitations,?No??syncope Gastrointestinal:?Nonausea,?No??vomiting,?No??diarrhea Genitourinary:?No??hematuria Joshua/Lymph:?No??bruising tendency,?No??swollen lymph glands Endocrine:?No??excessive thirst,??No??excessive hunger Musculoskeletal:??No??back pain,??No??neck pain,??No??joint pain,??No??muscle pain,??No??decreased range of motion Integumentary:?No??rash,?No??pruritus,?No??abrasions Neurologic: Alert & oriented X 4 Psychiatric:?No??anxiety,?No??depression Physical Exam Vitals & Measurements T:??37.0?C ??(Oral)?? HR:??74??(Peripheral)?? RR:??22?? BP:??140/82?? SpO2:??98%?? HT:??167.64??cm?? WT:??122.47??kg?? BMI:??43.58?? BSA:??2.39?? General: Alert and oriented, well nourished,?No??acute distress Eye: PERRL, EOMI,?Normal??conjunctiva HENT: Normocephalic, clear tympanic membranes,?Normal?? hearing, moist oral mucosa,?No??scleral icterus,?No??sinus tenderness Neck: Supple, non-tender,?No??carotid bruits,?No??JVD,?No??lymphadenopathy Lungs: Clear to auscultation and percussion,?Non-labored?? respiration Heart:?Normal?? rate,?Regular??rhythm,?No??murmur,?No??gallop,?No??edema Genitourinary??normal Abdomen: Soft, non-tender, non-distended,?Normal?? bowel sounds,?No??masses Musculoskeletal:?Normal?? range of motion and strength,?No??tenderness,?No??swelling Skin: Skin is warm, dry and pink,?No??rashes,?No??lesions Neurologic: Awake, alert and oriented X4, CN II-XII intact Psychiatric: Cooperative, appropriate mood and affect Depression Screen?? PHQ 2?? Feeling Down, Depressed, Hopeless: Not at all Initial Depression Screen Score: 0 Score Little Interest - Pleasure in Activities: Not at all Assessment/Plan 1.??High blood pressure??I10 Continue current meds 2.??Dyslipidemia??E78.5 We will add simvastatin??20 mg??at bedtime 3.??Morbid obesity??E66.01 Weight reduction and exercise Orders: atorvastatin 20 mg oral tablet, 20 mg = 1 tab, Oral, Daily, at bedtime, # 90 tab, 2 Refill(s), Pharmacy: [facility] [id number] [facility] triamterene-hydrochlorothiazide 37.5mg-25mg oral capsule, 1 cap, Oral, Daily, # 90 cap, 2 Refill(s), Pharmacy: [facility] [id number] [facility] Problem List/Past Medical History Ongoing Dyslipidemia Edema Glaucoma High blood pressure Macular degeneration Morbid obesity Historical No qualifying data Procedure/Surgical History ???Breast biopsy and related procedures (08/31/2017)???Caesarean section???Mammogram Medications atorvastatin 20 mg oral tablet, 20 mg= 1 tab, Oral, Daily, 2 refills latanoprost ophthalmic, every evening timolol, Oral, BID triamterene-hydrochlorothiazide 37.5mg-25mg oral capsule, 1 cap, Oral, Daily, 2 refills Allergies penicillin Social History Alcohol Current, Liquor, 1-2 times per month Electronic Cigarette/Vaping Electronic Cigarette Use: Never. Home/Environment Lives with Spouse. Nutrition/Health Diet: Regular. Tobacco Never tobacco user Tobacco Use:. Family History Cancer: Father. Heart disease: Mother. Immunizations Vaccine Date Status SARS-CoV-2 (COVID-19) mRNA BNT-162b2 vax 06/23/2020 Recorded SARS-CoV-2 (COVID-19) mRNA BNT-162b2 vax 05/30/2020 Recorded Electronically Signed on 04/16/22 11:49 AM Nitesh Harrell MD Patient Care team information Personnel Name: Nitesh Harrell MD Address: Address: [address] [place] [address]
--- OUTSIDE RECORDS SUMMARY | 2024-04-07 04:06 | XMS_ITS | Continuity of Care Document ---
Author Organization [facility] Address [address] [place] [address] Care Team Providers Care Gamewell Operator Name Role Phone Nitesh Harrell Primary Care Physician [phone] Encounter KOLE LIZ [id number] Date(s): 05/16/23 - 05/16/23 [facility] [address] [place] [address]- Encounter Diagnosis Dyslipidemia(Discharge Diagnosis) - 05/16/23 High blood pressure(Discharge Diagnosis) - 05/16/23 Morbid obesity(Discharge Diagnosis) - 05/16/23 Discharge Disposition: Home or Self Care Attending Physician: Nitesh Harrell MD Referring Physician: Nitesh Harrell MD Allergies, Adverse Reactions, Alerts Substance Reaction Severity Status penicillin Active Assessment and Plan Extracted from: Title:Office Visit Note Author:Ferdinand Harrell MD Date:05/16/23 Depression Screen?? PHQ 2?? Little Interest - Pleasure in Activities: Not at all Feeling Down, Depressed, Hopeless: Not at all Initial Depression Screen Score: 0 Score Assessment/Plan 1.??Dyslipidemia??E78.5 Discussed??low-cholesterol??diet 2.??High blood pressure??I10 Continue current meds??low-sodium??diet 3.??Morbid obesity??E66.01 Continue keto diet and dietary supplements Orders: triamterene-hydrochlorothiazide 37.5mg-25mg oral capsule, See Instructions, TAKE ONE CAPSULE BY MOUTH EVERY DAY, # 90 cap, 1 Refill(s), Pharmacy: [facility] #[id number], 167.64, cm, 05/16/23 12:07:00 FENCE INSTALLER, Height, 114.31, kg, 05/16/23 12:07:00 FENCE INSTALLER, Weight Dosing Immunizations Given and Recorded Vaccine Date Status Refusal Reason SARS-CoV-2 (COVID-19) mRNA BNT-162b2 vax 06/23/20 Recorded SARS-CoV-2 (COVID-19) mRNA BNT-162b2 vax 05/30/20 Recorded Medications atorvastatin 20 mg oral tablet 20 mg = 1 tab, Oral, Daily, at bedtime, # 90 tab, 2 Refill(s), Pharmacy: [facility] [id number] [facility] Start Date: 04/16/22 Status: Ordered latanoprost ophthalmic every evening, 0 Refill(s) Start Date: 12/03/19 Status: Ordered timolol Oral, BID, 0 Refill(s) Start Date: 12/03/19 Status: Ordered triamterene-hydrochlorothiazide 37.5mg-25mg oral capsule See Instructions, TAKE ONE CAPSULE BY MOUTH EVERY DAY, # 90 cap, 1 Refill(s), Pharmacy: [facility] #[id number], 167.64, cm, 05/16/23 12:07:00 FENCE INSTALLER, Height, 114.31, kg, 05/16/23 12:07:00 FENCE INSTALLER, Weight Dosing Start Date: 05/16/23 Status: Ordered Problem List Condition Confirmation Course [...] Oral [35.8-37.3 Deg C] 36.9 Deg C (05/16/23 11:58 AM) Peripheral Pulse Rate [60-100 bpm] 55 bp m *LOW* (05/16/23 11:58 AM) Respiratory Rate [12-24 br/min] 16 br/mi n (05/16/23 11:58 AM) Blood Pressure [90-140/60-90 mmHg] 168/9 6mmHg *HI* (05/16/23 11:58 AM) Mean Arterial Pressure, Cuff [65-140 mmH g] 120 mmHg (05/16/23 11:58 AM) Weight 114.31 kg (05/16/23 11:58 AM) Weight Measured (lbs) 252.01 lb (05/16/23 11:58 AM) Weight Dosing 114.310 kg (05/16/23 11:58 AM) Height 167.64 cm (05/16/23 11:58 AM) Height/Length Measured (inches) 66 inch (05/16/23 11:58 AM) BSA Measured 2.31 m2 (05/16/23 11:58 AM) Body Mass Index 40.68 kg/m2 (05/16/23 11:58 AM) Social History Social History Type Response Tobacco Former tobacco user Tobacco Use:. Sex Physician Outpatient Note * Nitesh Harrell MD: PERFORM Event Display: Office Clinic Note Physician Authored Date: [id number] HENRRY AGUIRRE :1950 Age:73 years Sex:Female Visit Date:05/16/2023 Primary Care Physician: Nitesh Harrell MD Chief Complaint Follow-up visit and medications refill History of Present Illness History of??hypertension??mild dyslipidemia??and morbid obesity??patient is doing well??on keto diet??and taking supplements??blood pressure at home is always normal Review of Systems Constitutional:?No??fevers,?No??chills,?No??sweats Eye:?No??recent visual problems ENT:?No??ear pain,?No??nasal congestion,?No??sore throat Respiratory:?No??shortness of breath,?No??cough Cardiovascular:?No??Chest pain,?No??palpitations,?No??syncope Gastrointestinal:?Nonausea,?No??vomiting,?No??diarrhea Genitourinary:?No??hematuria Joshua/Lymph:?No??bruising tendency,?No??swollen lymph glands Endocrine:?No??excessive thirst,??No??excessive hunger Musculoskeletal:??No??back pain,??No??neck pain,??No??joint pain,??No??muscle pain,??No??decreased range of motion Integumentary:?No??rash,?No??pruritus,?No??abrasions Neurologic: Alert & oriented X 4 Psychiatric:?No??anxiety,?No??depression Physical Exam Vitals & Measurements T:??36.9?C ??(Oral)?? HR:??55??(Peripheral)?? RR:??16?? BP:??168/96?? SpO2:??96%?? HT:??167.64??cm?? WT:??114.31??kg?? BMI:??40.68?? BSA:??2.31?? General: Alert and oriented, well nourished,?No??acute distress Eye: PERRL, EOMI,?Normal?conjunctiva HENT: Normocephalic, clear tympanic membranes,?Normal? hearing, moist oral mucosa,?No??scleral icterus,?No??sinus tenderness Neck: Supple, non-tender,?No??carotid bruits,?No??JVD,?No??lymphadenopathy Lungs:??Clear to auscultation?? Respiration:??Non-Labored Heart:?Normal? rate,?Regular??rhythm,?No??murmur,?No??gallop,?No??edema Abdomen: Soft, non-tender, non-distended,?Normal? bowel sounds,?No??masses Musculoskeletal:?Normal? range of motion and strength,?No??tenderness,?No??swelling Skin: Skin is warm, dry and pink,?No??rashes,?No??lesions Neurologic: Awake, alert and oriented X4, CN II-XII intact Psychiatric: Cooperative, appropriate mood and affect Depression Screen?? PHQ 2?? Little Interest - Pleasure in Activities: Not at all Feeling Down, Depressed, Hopeless: Not at all Initial Depression Screen Score: 0 Score Assessment/Plan 1.??Dyslipidemia??E78.5 Discussed??low-cholesterol??diet 2.??High blood pressure??I10 Continue current meds??low-sodium??diet 3.??Morbid obesity??E66.01 Continue keto diet and dietary supplements Orders: triamterene-hydrochlorothiazide 37.5mg-25mg oral capsule, See Instructions, TAKE ONE CAPSULE BY MOUTH EVERY DAY, # 90 cap, 1 Refill(s), Pharmacy: [facility] #[id number], 167.64, cm, 05/16/23 12:07:00 FENCE INSTALLER, Height, 114.31, kg, 05/16/23 12:07:00 FENCE INSTALLER, Weight Dosing Problem List/Past Medical History Ongoing Dyslipidemia Edema Glaucoma High blood pressure Macular degeneration Morbid obesity Historical No qualifying data Procedure/Surgical History ???Breast biopsy and related procedures (08/31/2017)???Caesarean section???Mammogram Medications atorvastatin 20 mg oral tablet, 20 mg= 1 tab, Oral, Daily, 2 refills latanoprost ophthalmic, every evening timolol, Oral, BID triamterene-hydrochlorothiazide 37.5mg-25mg oral capsule, See Instructions, 1 refills Allergies penicillin Social History Alcohol Current, Liquor, 1-2 times per month Electronic Cigarette/Vaping Electronic Cigarette Use: Never. Home/Environment Lives with Spouse. Nutrition/Health Diet: Regular. Tobacco Former tobacco user Tobacco Use:. Family History Cancer: Father. Heart disease: Mother. Immunizations Vaccine Date Status SARS-CoV-2 (COVID-19) mRNA BNT-162b2 vax 06/23/2020 Recorded SARS-CoV-2 (COVID-19) mRNA BNT-162b2 vax 05/30/2020 Recorded Electronically Signed on 05/16/23 12:13 PM Nitesh Harrell MD Patient Care team information Care Team Personnel Name: Nitesh Harrell MD Position: Physician Member Role: Primary Care Physician Address: Address: [address] [place] [address]
--- OUTSIDE RECORDS SUMMARY | 2024-04-07 04:06 | XMS_ITS | Continuity of Care Document ---
Author Organization [facility] Address [address] [place] [address] Care Team Providers Care Service Electrician Name Role Phone Tiffanie Romanolon Primary Care Physician Encounter KOLE HILL [id number] Date(s): 12/03/19 - 12/03/19 [facility] [address] [place] [address]- Encounter Diagnosis Ankle edema, bilateral(Discharge Diagnosis) - 12/03/19 Discharge Disposition: Home or Self Care Attending Physician: Nitesh Harrell MD Allergies, Adverse Reactions, Alerts Substance Reaction Severity Status penicillin Active Functional Status 12/03/19 Recent Travel History No recent travel Other exposure to Infectious Disease Non e Medications latanoprost ophthalmic every evening, 0 Refill(s) Start Date: 12/03/19 Status: Ordered timolol Oral, BID, 0 Refill(s) Start Date: 12/03/19 Status: Ordered triamterene-hydrochlorothiazide 37.5mg-25mg oral capsule See Instructions, TAKE 1 CAPSULE BY MOUTH EVERY DAY, # 90 cap, 1 Refill(s), Pharmacy: [id number]/pharmacy #[id number] Start Date: 11/22/19 Status: Ordered Problem List Condition Effective Dates Status Health Status Inform ant Macular degeneration(Confirmed) Active Glaucoma(Confirmed) Active Edema(Confirmed) Active Procedures Procedure Date Related Diagnosis Body Site Status Caesarean section Complet ed Mammogram Completed Vital Signs Most recent to oldest [Reference Range]: 1 Weight 117.93 kg (12/03/19 3:55 PM) Weight Measured (lbs) 259 lb (12/03/19 3:55 PM) Height 167.64 cm (12/03/19 3:55 PM) Height/Length Measured (inches) 66 inch (12/03/19 3:55 PM) BSA Measured 2.34 m2 (12/03/19 3:55 PM) Body Mass Index Measured 41.96 kg/m2 (12/03/19 3:55 PM) Social History Social History Type Response Smoking Status Former smoker, quit more than 30 days ago entered on: 12/03/19 Sex
--- OUTSIDE RECORDS SUMMARY | 2024-04-12 03:23 | XMS_ITS | Continuity of Care Document ---
Author Organization [facility] - [place], [facility] Address [address] [place] [address] Phone Care Team Providers Care Geological Sample Tester Name Role Phone Surgery - [place] [facility], [facility] Unavailable Unavailable Procedures Procedure [...] Diagnoses Date Provider Providers Copied on Encounter [facility] [place], [facility], [address] [place], [place], [id number], [place] tel:[phone] [facility] No Information Surgery - [place] [facility]. [address] [place], [place], [id number], [place]. tel:[phone] Referring Provider: Guy Esparza, [address] [place], [address]. tel:[phone] [facility] - [place], [facility], [address], [place], [id number], [place] tel:[phone] [facility] No Information Surgery - [facility] Eye. [address], [place], [id number], [place]. tel:[phone] Referring Provider: Guy Esparza, [address] [place], [address]. tel:[phone] Family History Family Member Type Diagnosis Age At Onset No Information Payers Payer name Insurance type Covered libertarian ID Authoriza tion(s) [place] [id number] [employer] [facility] CI [id number] Social History Type Description Quantity Date Captured [...]
--- OUTSIDE RECORDS SUMMARY | 2024-04-12 03:23 | XMS_ITS | Clinical Summary ---
Author Organization [facility] Address [address] [place] [address]. [place], [place] [id number] [place] [address] Care Team Providers Care Box Covering Machine Operator Name Role Phone None, Provider Primary Care [...] of 1 - PCV) 2014 COVID-19 Vaccine ( - 2023-2 5 season) 2023 06/23/2020, 05/30/2020 Influenza Adult (#1) 2023 RSV Immunization or 60+ Years (1 - 1-dose 75+ series) 02/16/2024 Meningococcal B Vaccine Aged Out No l onger eligible based on patient's age to complete this topic Meningococcal Vaccine Aged Out No viki anitra eligible based on patient's age to complete this topic RSV Immunizations Under 20 Months Aged Out No longer eligible b ased on patient's age to complete this topic Care Teams Box Covering Machine Operator Relationship Specialty Start Date End Date None, Provider, PCP - General 12/19/18
--- OUTSIDE RECORDS SUMMARY | 2024-04-12 03:23 | XMS_ITS | Continuity of Care Document ---
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 Role Phone Oberreiter OD, Yazmin Unavailable Unavailabl e Allergies, Adverse Reactions, Alerts Substance Reaction Status Criticality Penicillins Unknown(unknown) Active Unable to A [facility] Medications Medication Instructions Dosage Effective Dates (start [...] route every day 1 tablet - Active Dyazide 37.5 mg-25 mg capsule take 1 capsule by oral route every day - Active aspirin 81 mg tablet,delayed release take 1 tablet by oral route every day 81 MG - Active Vitamins & Minerals Tab - [...] EYE EXAM ESTABLISHED PAT EYE EXAM ESTABLISHED [facility], MEDICAL JARAMILLO VISUAL FIELD EYE EXAM ESTABLISHED PATIENT, MEDICAL No REFRACTION OPTIONAL UPDATE Scan Image/ OCT, Glaucoma EYE EXAM ESTABLISHED [facility] JARAMILLO VISUAL FIELD EYE EXAM ESTABLISHED [facility] IOL Frame Medicare UV lens/es Medicare UV lens/es Postoperative Exam REFRACTION UPDATE Postoperative Exam REFRACTION NO CHARGE Postoperative Exam CATARACT SURG W/IOL IOL MASTER, PROF COMP ONLY Postoperative Exam CATARACT SURG W/IOL EYE EXAM ESTABLISHED PATIENT, MEDICAL De REFRACTION NO UPDATE IOL MASTER Post Operative Kit / Medical Supply By P rescription EYE EXAM ESTABLISHED [facility], MEDICAL EYE EXAM ESTABLISHED PATIENT, MEDICAL Ju Scan Image/ OCT, Glaucoma EYE EXAM ESTABLISHED [facility], [facility] EYE EXAM ESTABLISHED [facility] JARAMILLO VISUAL FIELD Vision svcs frames purchases Lens Hi Index 1.66/1.67 Trifocal Lens Photochromatic Tint Progressive lens per lens A/R Standard Miscellaneous vision service UV Lens EYE EXAM ESTABLISHED [facility] EYE EXAM ESTABLISHED PATIENTDORY Au REFRACTION OPTIONAL UPDATE Scan Image/ OCT, Glaucoma EYE EXAM ESTABLISHED [facility] EYE EXAM ESTABLISHED [facility] EYE EXAM ESTABLISHED PATIENT, MEDICAL Se JARAMILLO VISUAL FIELD EYE EXAM ESTABLISHED [facility] EYE EXAM ESTABLISHED [facility], [facility] GONIOSCOPY EYE EXAM ESTABLISHED [facility] EYE EXAM ESTABLISHED PATIENT, MEDICAL No REFRACTION NO UPDATE Scan Image/ OCT, Glaucoma EYE EXAM ESTABLISHED [facility] JARAMILLO VISUAL FIELD, BI-LATERAL EYE EXAM ESTABLISHED [facility] EYE EXAM ESTABLISHED [facility] GONIOSCOPY EYE EXAM ESTABLISHED PATIENT MEDICAL Oc Scan Image/ OCT, Glaucoma EYE EXAM ESTABLISHED [facility] JARAMILLO VISUAL FIELD, BI-LATERAL Frame EYE EXAM ESTABLISHED PATIENTDORY Se p SCAN IMAGING, BI-LATERAL Advance Directives Directive Yes / No Effective Date File Name No Information Encounters Encounter Description Practice Location Reason(s) For Visit Diagnoses Date Provider Providers Copied on Encounter [facility], [address] [place] [address], [id number] , tel:[phone] [facility] No Information 2 Oberreiter Yazmin. [address] [place], [place], [id number], [place]. tel:[phone] [facility], [address] [place] [address], [id number] , tel:[phone] [facility] 2 Oberreiter Yazmin. [address], [place], [place], [id number], [place]. tel:[phone] [facility], [address] [place] [address], [id number] , tel:[phone] [facility] no problems with vision and no complaints (chief complaint)n o problems with vision and no complaints (chief complaint) Nonexudative age-related macular degeneration, bilateral, early dry stagePrimary open-angle glaucoma, bilateral, mild stagePresence of intraocular lensMyopia, bilateralPresbyop iaRegular astigmatism, bilateralDry eye syndrome of bilateral lacrimal glands 1 Oberreiter Yazmin. [address], [place], [place], [id number], [place]. tel:[phone] [facility], [address] [place] [address], [id number] , [place] tel:[phone] [facility] no problems with vision and no complaints (chief complaint)n o problems with vision and no complaints (chief complaint) Myopia, bilateralRegular astigmatism, right eyePresbyopiaPrim dario open-angle glaucoma, bilateral, mild stagePresence of intraocular lensNonexudative age-related macular degeneration, bilateral, early dry stage Oct-2 9 Oberreiter Yazmin. [address], [place], [place], [id number], [place]. tel:[phone] [facility], [address] [place] [address], [id number] , [place] tel:[phone] [facility] no problems with vision and no complaints (chief complaint)n o problems with vision and no complaints (chief complaint) Other specified postprocedural statesNonexudativ e age-related macular degeneration, bilateral, early dry stagePrimary open-angle glaucoma, bilateral, mild stageMyopia, bilateralPresbyop ia Chaim- 9 Oberreiter Yazmin. [address], [place], [place], [id number], [place]. tel:[phone] [facility], [address] [place] [address], [id number] , [place] tel: [phone] [facility] No Information 9 Oberreiter Yazmin. [address], [place], [place], [id number], [place]. tel: [phone] [facility], [address] [place] [address], [id number] , [place] tel: [phone] [facility] blurry vision (chief complaint)b lurry vision (chief complaint) Other secondary cataract, left eye 9 Alan Tovar. [address] [place] [address], [id number], [place]. tel:[phone] [facility], [address] [place] [address], [id number] , [place] tel: [phone] [facility] blurry vision (chief complaint)b lurry vision (chief complaint) Other secondary cataract, bilateralOther secondary cataract, right eyeOther secondary cataract, left eyeNonexudative age-related macular degeneration, bilateral, early dry stagePrimary open-angle glaucoma, bilateral, mild stage 9 Alan Tovar. [address] [place] [address], [id number], [place]. tel:[phone] [facility], [address] [place] [address], [id number] , [place] tel: [phone] [facility] decreased vision (chief complaint)d ecreased vision (chief complaint) Primary open-angle glaucoma, bilateral, mild stageOther secondary cataract, bilateralDry eye syndrome of bilateral lacrimal glands 9 Oberreiter Yazmin. [address], [place], [place], [id number], [place]. tel: [phone] [facility], [address] [place] [address], [id number] , [place] tel: [phone] [facility] No Information 9 Oberreiter Yazmin. [address], [place], [place], [id number], [place]. tel:[phone] [facility], [address] [place] [address], [id number] , [place] tel: [phone] [facility] no problems with vision and no complaints (chief complaint)n o problems with vision and no complaints (chief complaint) Primary open-angle glaucoma, bilateral, mild stageMyopia, bilateralPresbyop iaOther secondary cataract, bilateralDry eye syndrome of bilateral lacrimal glands 0-201 8 Oberreiter Yazmni. [address], [place], [place], [id number], [place]. tel:[phone] [facility], [address] [place] [address], [id number] , [place] tel: [phone] [facility] no problems with vision and no complaints (chief complaint)n o problems with vision and no complaints (chief complaint) Primary open-angle glaucoma, bilateral, mild stage Aug-0 7-201 8 Oberreiter Yazmin. [address], [place], [place], [id number], [place]. tel:[phone] Referring Provider: Yazmin Esparza, [address], [place], [address]. tel:[phone] [facility], [address] [place] [address], [id number] , [place] tel: [phone] [facility] dryness (chief complaint)d ryness (chief complaint) Primary open-angle glaucoma, bilateral, mild stage Mar-2 8-201 8 Oberreiter Yazmin. [address], [place], [place], [id number], [place]. tel:[phone] Referring Provider: Yazmin Esparza, [address], [place], [address]. tel:[phone] [facility], [address] [place] [address], [id number] , [place] tel:[phone] [facility] no problems with vision and no complaints (chief complaint)n o problems with vision and no complaints (chief complaint) Primary open-angle glaucoma, bilateral, mild stageDry eye syndrome of bilateral lacrimal glandsOther secondary cataract, bilateralPresbyop ia Gwyn Arce. [address], [place], [place], [id number], [place]. tel:[phone] Referring Provider: Yazmin Esparza, [address], [place], [address]. tel:[phone] [facility], [address] [place] [address], [id number] , [place] tel:[phone] [facility] no problems with vision and no complaints (chief complaint)n o problems with vision and no complaints (chief complaint) Primary open-angle glaucoma, bilateral, mild stage Radha Loyd. [address] [place] [address], [id number], [place]. tel:[phone] Referring Provider: Rach Zuniga, [address] [place] [address], [id number]. tel:[phone] [facility], [address] [place] [address], [id number] , [place] tel:[phone] [facility] redness, blurry, and pain (chief complaint)r edness, blurry, and pain (chief complaint) Conjunctival hemorrhage, left eye Gwyn Arce. [address], [place], [place], [id number], [place]. tel:[phone] Referring Provider: Yazmin Esparza, [address], [place], [address]. tel:[phone] [facility], [address] [place] [address], [id number] , [place] tel:[phone] [facility] No Information Gwyn Arce. [address], [place], [place], [id number], [place]. [phone] Referring Provider: Guy Esparza, [address] [place] [address], [address]. tel:[phone] [facility], [address] [place] [address], [id number] , [place] tel:[phone] [facility]- sore and tired (chief complaint) sore and tired (chief complaint) Primary open-angle glaucoma, bilateral, mild stagePresence of intraocular lensDry eye syndrome of bilateral lacrimal glandsMyopia, bilateral May- Gwyn Arce. [address], [place], [place], [id number], [place]. [phone] Referring Provider: Yazmin Esparza, [address], [place], [address]. [phone] [facility], [address] [place] [address], [id number] , [place] tel:[phone] [facility] no problems with vision and no complaints (chief complaint)n o problems with vision and no complaints (chief complaint) Cataract extraction status, right eyeCataract extraction status, left eyePresence of intraocular lensPrimary open-angle glaucoma, bilateral, mild stage Apr- 7 Gwyn Arce. [address], [place], [place], [id number], [place]. [phone] Referring Provider: Yazmin Esparza, [address], [place], [address]. [phone] [facility], [address] [place] [address], [id number] , [place] tel:[phone] [facility] Not sure if va is better or not OD (chief complaint)d enies pain or discomfort OD (chief complaint)N ot sure if va is better or not (chief complaint)d enies pain or discomfort (chief complaint) No Information Gwyn Arce. [address], [place], [place], [id number], [place]. tel:[phone] Referring Provider: Yazmin Esparza, [address], [place], [address]. [phone] [facility], [address] [place] [address], [id number] , [place] tel:[phone] [facility] No Information 7 Alan Tovar. [address] [place] [address], [id number], [place]. tel:[phone] Referring Provider: Guy Esparza, [address] [place] [address], [address]. tel:[phone] [facility], [address] [place] [address], [id number] , [place] tel:[phone] [facility] No Information 7 Alan Tovar. [address] [place] [address], [id number], [place]. tel:[phone] Referring Provider: Guy Esparza, [address] [place] [address], [address]. tel:[phone] [facility], [address] [place] [address], [id number] , tel:[phone] [facility] vision brighter OS (chief complaint)d enies pain or discomfort OS (chief complaint)b lurry vision OD (chief complaint)v ision brighter (chief complaint)d enies pain or discomfort (chief complaint)b lurry vision (chief complaint) No Information Gwyn Arce. [address], [place], [place], [id number], [place]. tel:[phone] Referring Provider: Yazmin Esparza, [address], [place], [address]. tel:[phone] [facility], [address] [place] [address], [id number] , [place] tel:[phone] [facility] No Information 7 Alan Tovar. [address] [place] [address], [id number], [place]. tel:[phone] Referring Provider: Yazmin Esparza, [address], [place], [address]. [phone] [facility], [address] [place] [address], [id number] , [place] tel:[phone] [facility] blurry vision (chief complaint)b lurry vision (chief complaint) Primary open-angle glaucoma, bilateral, mild stagePresbyopiaRe gular astigmatism, bilateral 6 Alan Tovar. [address] [place] [address], [id number], [place]. tel:[phone] Referring Provider: Guy Esparza, [address] [place] [address], [address]. tel:[phone] [facility], [address] [place] [address], [id number] , tel:[phone] [facility] dryness (chief complaint)d ryness (chief complaint) Primary open-angle glaucoma, bilateral, mild stage 6 Gwyn Arce. [address], [place], [place], [id number], [place]. [phone] Referring Provider: Yzamin Esparza, [address], [place], [address]. tel:[phone] [facility], [address] [place] [address], [id number] , [place] tel:[phone] [facility] no problems with vision and no complaints (chief complaint)n o problems with vision and no complaints (chief complaint) Primary open-angle glaucoma, mild stage 6 Oberreiter Yazmin. [address], [place], [place], [id number], [place]. tel:[phone] Referring Provider: Yazmin Esparza, [address], [place], [address]. tel:[phone] [facility], [address] [place] [address], [id number] , [place] [phone] [facility] no problems with vision and no complaints (chief complaint)n o problems with vision and no complaints (chief complaint) Primary open-angle glaucoma, mild stage 6 Oberreiter Yazmin. [address], [place], [place], [id number], [place]. tel:[phone] Referring Provider: Yazmin Esparza, [address], [place], [address]. tel:[phone] [facility], [address] [place] [address], [id number] , [place] [phone] [facility] blurry vision (chief complaint)b lurry vision (chief complaint) Primary open-angle glaucoma, moderate stageAge-related nuclear cataract, bilateralMyopia, bilateralPresbyop ia 6 Oberreiter Yazmin. [address], [place], [place], [id number], [place]. tel:[phone] Referring Provider: Yazmin Esparza, [address], [place], [address]. tel:[phone] [facility], [address] [place] [address], [id number] , [place] tel:[phone] [facility] No Information 6 Oberreiter Yazmin. [address], [place], [place], [id number], [place]. tel:[phone] Referring Provider: Yazmin Esparza, [address], [place], [address]. tel:[phone] [facility], [address] [place] [address], [id number] , tel: [phone] [facility] no problems with vision and no complaints (chief complaint)n o problems with vision and no complaints (chief complaint) Primary open angle glaucomaMild Stage Glaucoma 5 Gwyn Arce. [address], [place], [place], [id number], [place]. tel:[phone] Referring Provider: Yazmin Esparza, [address], [place], [address]. tel:[phone] [facility], [address] [place] [address], [id number] , tel: [phone] [facility] blurry vision (chief complaint)b lurry vision (chief complaint) Mild Stage GlaucomaPrimary open angle glaucomaSenile nuclear sclerosis Gwyn Arce. [address], [place], [place], [id number], [place]. tel:[phone] Referring Provider: Yazmin Esparza, [address], [place], [address]. tel:[phone] [facility], [address] [place] [address], [id number] , [place] tel: [phone] [facility] no problems with V/A and no complaints (chief complaint) Primary open angle glaucomaMild Stage Glaucoma 3 Apte Juanita. [address] [place] [address], [id number], [place]. [phone] Referring Provider: Juanita Means V, [address] [place] [address], [address]. tel:[phone] [facility], [address] [place] [address], [id number] , tel:[phone] [facility] no problems with V/A and no complaints (chief complaint) Primary open angle glaucomaMild Stage Glaucoma Oct-0 4-201 3 Apte Juanita. [address] [place] [address], [facility], [place]. tel:[phone] Referring Provider: Juanita Means V, [address] [place] [address], [facility]. tel:[phone] [facility], [address] [place] [address], [id number] , [phone] [facility] no problems with V/A and no complaints (chief complaint) Primary open angle glaucomaMild Stage Glaucoma Sep-2 0-201 3 Apte Juanita. [address] [place] [address], [facility], . tel:[phone] Referring Provider: Juanita Means V, [address] [place] [address], [facility]. tel:[phone] [facility], [address] [place] [address], [id number] , tel:[phone] [facility] no problems with V/A and no complaints (chief complaint) Primary open angle glaucomaMild Stage GlaucomaSenile nuclear sclerosis Chaim-0 - 3 Brian Comer. [address] [place] [address], [address] [facility], [place], [place], [id number], [place]. tel:[phone] Referring Provider: Souleymane Haro, [address] [place] [address] [address], [place], [address]. tel:[phone] [facility], [address] [place] [address], [id number] , [place] tel:[phone] [facility] no problems with V/A and no complaints (chief complaint) Primary open angle glaucomaMild Stage Glaucoma Mar-0 7-201 3 Brian Comer. [facility], [address] [place] [address], [id number], . tel:[phone] Referring Provider: Souleymane Haro, [address] [place] [address] [address] [facility], [place], [address]. [phone] [facility], [address] [place] [address], [id number] , [phone] [facility] no problems with V/A and no complaints (chief complaint) Primary open angle glaucomaMild Stage GlaucomaSenile nuclear sclerosisVitreous degenerationOther vitreous opacities Fe 6 3 Knlakshmi Comer. [address] [place] [address], [address] [place] [address], [address] [place] [address], . [phone] Referring Provider: Souleymane Haro, [address] [place] [address] [address] [place] [address], [id number]. tel:[phone] [facility], [address] [place] [address], [id number] , tel:[phone] [facility] no problems with V/A and no complaints (chief complaint) Vitreous degenerationOther vitreous opacitiesPrimary open angle glaucomaMild Stage GlaucomaSenile nuclear sclerosisVitreous degenerationOther vitreous opacities 2 Knlakshmi Comer. [address] [place] [address] [address] [place] [address], [id number], [place]. [phone] Referring Provider: Souleymane Haro, [address] [place] [address] [address] [place] [address], [id number]. [phone] [facility], [address] [place] [address], [id number] , tel:[phone] [facility] no problems with V/A and no complaints (chief complaint) Primary open angle glaucomaMild Stage Glaucoma 2 Brian Comer. [address] [place] [address], [address] [place] [address], [id number], [place]. tel:[phone] Referring Provider: Souleymane Haro, [address] [facility] [address], [place], [address]. tel:[phone] [facility], [address] [place] [address], [id number] , tel:[phone] [facility] no problems with V/A and no complaints (chief complaint) Primary open angle glaucomaMild Stage Glaucoma 2 Brian Comer. [address], [place], [place], [id number], [place]. tel:[phone] Referring Provider: Souleymane Haro, [facility] [address] [facility] [address], [place], [address]. tel:[phone] [facility], [address] [place] [address], [id number] , tel:[phone] [facility] Reports no problems with V/A and no complaints (chief complaint) Primary open angle glaucomaMODERATE STAGE GLAUCOMASenile nuclear sclerosisMILD STAGE GLAUCOMA 2 Brian Comer. [address] [facility], [address] [place] [address], [id number], [place]. tel:[phone] Referring Provider: Souleymane Haro, [facility] [address] [facility] [address], [place], [address]. tel:[phone] [facility], [address] [place] [address], [id number] , tel:[phone] [facility] Reports no problems with V/A and no complaints (chief complaint) Primary open angle glaucomaMODERATE STAGE GLAUCOMASenile nuclear sclerosis 1 Brian Comer. [address] , [address], [place], [id number], [place]. tel:[phone] Referring Provider: Souleymane Haro, [address] [facility] [address], [place], [address]. tel:[phone] [facility], [address] [place] [address], [id number] , tel:[phone] [facility] No Information 1 Brian Comer. [address] [place] [address], [address] [facility], [place], [place], [id number], . [phone] Referring Provider: Souleymane Haro, [address] [place] [address] [address] [facility], [place], [address]. [phone] [facility], [address] [place] [address], [id number] , tel:[phone] [facility] No Information 1 Brian Comer. [address] [place] [address], [address] [facility], [place], [place], [id number], . [phone] Referring Provider: Souleymane Haro, [address] [place] [address] [address] [facility], [place], [address]. [phone] [facility], [address] [place] [address], [id number] , tel:[phone] [facility] No Information 0 Brian Comer. [address] [place] [address] [place] [address], [id number], . [phone] Referring Provider: Souleymane Haro, [address] [place] [address] [address] [facility], [place], [address]. [phone] Family History Family Member Type Diagnosis Age At Onset Mother Problem (finding) glaucoma Problem (finding) No Family hist ory of Macular Degeneration Grandmother Problem (finding) Diabetes mellitus Mother Problem (finding) HBP Mother Problem (finding) cataract Payers Payer name Insurance type Covered republican ID Authorluz mariaa tileidy(s) Medicare [place] MB [id number] [employer] [place] [id number] Social History Type Description Quantity Date Captured Comments Alcohol Use Details Unknown Caffeine Use Details Unknown Tobacco Use Status No Information Smoking Status No Information Sex Female Chief Complaint And Reason For Visit No Information Reason For Referral Reason For Referral No Information Plan Of Treatment Date Type Action Status Referral Referred To: Nitesh Harrell MD [address] [place], [address] Ordered: Referrals: Family Medicine. Nitesh Harrell MD. [...] stage Impression/Plan - 1. Intraocular pressure well controlled [...] Will monitor. 4. Optional update for glasses. Follow up - Return i n 4 months with DEBRA for T, Slamp , Visual Field (24-2). Return in 3-4 months with [facility]BRA for Refract T & D , OCT (ON). Related to Primary open-angle glaucoma, bilateral, mild stage Follow up - Return i n 3-4 months with DEBRA for Refract T [...] n 1 month with DEBRA for Refract, T, Slamp Impression/Plan - IO P is good today [...] if problems. Follow up - per surgery Impression/Plan - 1. Intraocular pressure well controlled at 16-15, tolerating medications. Will continue with same regimen. Latanoprost OU HS, and Timolol OU qAM. 2. Discussed Cataracts with patient, explained they do meet all the criteria for surgical removal. Patient may elect to proceed with surgery whenever she is ready. Reviewed different IOL options, with possible ISTENT Follow up - Return i n 4 months with DEBRA for T, Slamp. HVF (or) may sched c RML for Cataract eval Return in 4 months w ith DEBRA for T, Slamp. Related to Primary [...] OU: New glasses Rx was given today. Impression/Plan - 1. POAG (mild stage) OU: IOP's are stable today. Latanoprost is controlling IOP's. Pt is to continue using Latanoprost q HS OU. See pt back in 4 months for HVF. Follow up - Return i n 4 months with DEBRA for T, Slamp , Visual Field (24-2). Follow up - Return i n 6 [...] no retinal tear's or hole's. no ARMD Primary open angle g laucoma OU. Condition: [...] open angle glaucoma - Return in 4 months with [facility] [...] for Related to Primary open angle glaucoma - [...] positive and negative errors. - Return in 3 months with SHAYNE [...] Salmeron Related to Primary open angle glaucoma Primary open angle g laucoma OU MODERATE STAGE GLAUCOMA OU Target IOP = high teens, meeting. Senile nuclear sclerosis OU - OAG: OU; meeting target IOP's (TARGET: HIGH TEENS).Continue: Roberto white HS: OUCat: OU - no progressionLetter to Dr. Salmeron DONE Related to Primary open angle glaucoma - 3-4 mos for tension, gonio Rel ated to Primary open angle glaucoma Assessments Type Assessment Date No Information Patient Care Teams Name Effective Dates (start - stop) Status Members No Information
--- OUTSIDE RECORDS SUMMARY | 2024-04-12 03:23 | XMS_ITS | Clinical Summary ---
Author Organization [facility] Address [address] [place] [address] Care Team Providers Care Electrician Outside Name Role Phone Tatyana Victoria Primary Care Provider Unavailable Allergies Active Allergy Reactions Criticality Noted Date Comments Penicillins Unknown 08/23/2017 Medications aspirin (ECOTRIN EC) 81 mg Tablet, Delayed Release (E.C.) Take 81 mg by mouth daily. Active multivitamin (DAILY-KWASI) tablet Take 1 Tablet by mouth daily. Active timolol (TIMOPTIC) 0.5 % solution 1 Drop 2 times daily. Active latanoprost (XALATAN) 0.005 % solution 1 Drop daily at bedtime. Active triamterene-hyd roCHLOROthiazid e (DYAZIDE) 37.5-25 mg capsule TAKE 1 CAPSULE EVERY DAY 0 05/30/2017 Active Active Problems Problem Noted Date Diagnosed Date Microcalcification of right breast on mammograph y 08/23/2017 Family History Medical History Relation Name Comments Lung Cancer Father at age 61 Relation Name Status Comments Father Social History Tobacco Use Types Packs/Day Years Used Date Smoking Tobacco: Former Cigarettes 1 11 0 08/23/1970 - 08/23/1981 Smokeless Tobacco: Never Alcohol Use Standard Drinks/Week Comments Yes 0 (1 standard drink = 0.6 oz pur e alcohol) occasional Comments No Sex and Gender Information Value Date Recorded Sex Assigned at Not on file Legal Sex Female 12:40 PM CDT Gender Identity Not on file Sexual Orientation Not on file Last Filed Vital Signs Vital Sign Reading Time Taken Comments Blood Pressure 153/93 09/06/2017 2:29 PM CDT Pulse 70 09/06/2017 2:29 PM CDT Temperature 37.1 ??C (98.7 ??F) 09/06/2017 2:29 PM CD T Respiratory Rate - - Oxygen Saturation 93% 09/06/2017 2:29 PM CDT Inhaled Oxygen Concentration - - Weight 131.9 kg (290 lb 11.2 oz) 09/06/2017 2:29 PM CDT Height 167.6 cm (5' 6 ) 09/06/2017 2:29 PM CDT Body Mass Index 46.92 09/06/2017 2:29 PM CDT Plan of Treatment Health Maintenance Due Date Last Done Comments DTAP/TDAP/TD VACCINES (1 - Tdap) 02/16/1968 COLORECTAL SCREENING 1994 Colorectal Cancer Screening 1994 FIT-DNA Q 3 years 1994 FIT/FOBT Q 1 year 1994 Flex Sig/CT Colonography Q 5 years 1994 PNEUMOCOCCAL VACCINE 65+ YEARS (1 of 1 - PCV) 02/15/19 99 ZOSTER VACCINE (1 of 2) 1999 OSTEOPOROSIS SCREENING 2014 INFLUENZA VACCINE (#1) 2023 RSV VACCINE (60+ or ) (1 - 1-dose 75+ series) 02/16/2024 Insurance MEDICARE PART A AND B Care Teams Electrician Outside Relationship Specialty Start Date End Date Tatyana Victoria Provider PCP - General 09/06/17
== END 2024-04-03 17:40 | disposition home or self-care (01) | DRG 309 ==
LOC: ANHED 09:22 → ANH3MEDSUR 19:51 → ANH2MED 04-05 12:41 → ANH3MEDSUR 04-05 12:42
PROVIDERS: Emergency Medicine; General Practice; Nurse Practitioner Gerontology; Psychiatry & Neurology Neurology; Admitting Provider Internal Medicine; Emergency Provider Emergency Medicine; Visit Provider Internal Medicine
DX: I48.91 Unspecified atrial fibrillation (principal); G45.9 Transient cerebral ischemic attack, unspecified; E78.5 Hyperlipidemia, unspecified; E87.6 Hypokalemia; E66.01 Morbid (severe) obesity due to excess calories; I10 Essential (primary) hypertension; Z88.0 Allergy status to penicillin; Z79.82 Long term (current) use of aspirin; Z87.891 Personal history of nicotine dependence
CPT/HCPCS: 36415; 70496; 70498; 70553; 71045; 80048; 80053; 80061; 81001; 83036; 83735; 84100; 84443; 85025; 85027; 93005; 94762; 96372; 96374; 99285; A9270; A9577; C8929; G0378; J1650; J3480; J7040; Q9957; Q9967

== ENCOUNTER 2024-05-11 11:35 | Outpatient (CLI) | payer MEDICARE, OTHER, SELFPAY ==
--- OUTSIDE RECORDS SUMMARY | 2024-05-11 11:59 | XMS_ITS | Continuity of Care Document ---
Author Organization [facility], L TD Address [address] [place] [address] Phone Care Team Providers Care Apartment Leasing Agent Name Role Phone Oberreiter OD, Yazmin Unavailable Unavailabl e Allergies, Adverse Reactions, Alerts Substance Reaction Status Criticality Penicillins Unknown(unknown) Active Unable to A [facility] Medications Medication Instructions Dosage Effective Dates [...] EYE EXAM ESTABLISHED PAT EYE EXAM ESTABLISHED [facility], MEDICAL JARAMILLO VISUAL FIELD EYE EXAM ESTABLISHED PATIENT, MEDICAL No REFRACTION OPTIONAL UPDATE Scan Image/ OCT, Glaucoma EYE EXAM ESTABLISHED [facility] JARAMILLO VISUAL FIELD EYE EXAM ESTABLISHED [facility] IOL Frame Medicare UV lens/es Medicare UV lens/es Postoperative Exam REFRACTION UPDATE Postoperative Exam REFRACTION NO CHARGE Postoperative Exam CATARACT SURG W/IOL IOL MASTER, PROF COMP ONLY Postoperative Exam CATARACT SURG W/IOL EYE EXAM ESTABLISHED PATIENT, MEDICAL De REFRACTION NO UPDATE IOL MASTER Post Operative Kit / Medical Supply By P rescription EYE EXAM ESTABLISHED [facility], MEDICAL EYE EXAM ESTABLISHED PATIENT, MEDICAL Ju Scan Image/ OCT, Glaucoma EYE EXAM ESTABLISHED [facility], [facility] EYE EXAM ESTABLISHED [facility] JARAMILLO VISUAL FIELD Vision svcs frames purchases Lens Hi Index 1.66/1.67 Trifocal Lens Photochromatic Tint Progressive lens per lens A/R Standard Miscellaneous vision service UV Lens EYE EXAM ESTABLISHED [facility] EYE EXAM ESTABLISHED PATIENTDORY Au REFRACTION OPTIONAL UPDATE Scan Image/ OCT, Glaucoma EYE EXAM ESTABLISHED [facility] EYE EXAM ESTABLISHED [facility] EYE EXAM ESTABLISHED PATIENT, MEDICAL Se JARAMILLO VISUAL FIELD EYE EXAM ESTABLISHED [facility] EYE EXAM ESTABLISHED [facility], [facility] GONIOSCOPY EYE EXAM ESTABLISHED [facility] EYE EXAM ESTABLISHED PATIENT, MEDICAL No REFRACTION NO UPDATE Scan Image/ OCT, Glaucoma EYE EXAM ESTABLISHED [facility] JARAMILLO VISUAL FIELD, BI-LATERAL EYE EXAM ESTABLISHED [facility] EYE EXAM ESTABLISHED [facility] GONIOSCOPY EYE EXAM ESTABLISHED PATIENT MEDICAL Oc Scan Image/ OCT, Glaucoma EYE EXAM ESTABLISHED [facility] JARAMILLO VISUAL FIELD, BI-LATERAL Frame EYE EXAM ESTABLISHED PATIENTDORY Se p SCAN IMAGING, BI-LATERAL Advance Directives Directive Yes / No Effective Date File Name No Information Encounters Encounter Description Practice Location Reason(s) For Visit Diagnoses Date Provider Providers Copied on Encounter [facility], [address] [place] [address], [id number] , tel:[phone] [facility] No Information 2 Oberreiter Yazmin. [address] [place], [id number], [place]. tel:[phone] [facility], [address] [place] [address], [id number] , tel:[phone] [facility] No Information 2 Oberreiter Yazmin. [address], [place], [place], [id number], [place]. tel:[phone] [facility], [address] [place] [address], [id number] , tel:[phone] [facility] no problems with vision and no complaints (chief complaint)n o problems with vision and no complaints (chief complaint) Nonexudative age-related macular degeneration, bilateral, early dry stagePrimary open-angle glaucoma, bilateral, mild stagePresence of intraocular lensMyopia, bilateralPresbyop iaRegular astigmatism, bilateralDry eye syndrome of bilateral lacrimal glands 1 Oberreiter Yazmin. [address], [place], [place], [id number], [place]. tel:[phone] [facility], [address] [place] [address], [id number] , [place] tel:[phone] [facility] no problems with vision and no complaints (chief complaint)n o problems with vision and no complaints (chief complaint) Myopia, bilateralRegular astigmatism, right eyePresbyopiaPrim dario open-angle glaucoma, bilateral, mild stagePresence of intraocular lensNonexudative age-related macular degeneration, bilateral, early dry stage Oct-2 9 Oberreiter Yazmin. [address], [place], [place], [id number], [place]. tel:[phone] [facility], [address] [place] [address], [id number] , [place] tel:[phone] [facility] no problems with vision and no complaints (chief complaint)n o problems with vision and no complaints (chief complaint) Other specified postprocedural statesNonexudativ e age-related macular degeneration, bilateral, early dry stagePrimary open-angle glaucoma, bilateral, mild stageMyopia, bilateralPresbyop ia Chaim- 9 Oberreiter Yazmin. [address], [place], [place], [id number], [place]. tel:[phone] [facility], [address] [place] [address], [id number] , [place] tel: [phone] [facility] No Information 9 Oberreiter Yazmin. [address], [place], [place], [id number], [place]. tel: [phone] [facility], [address] [place] [address], [id number] , [place] tel: [phone] [facility] blurry vision (chief complaint)b lurry vision (chief complaint) Other secondary cataract, left eye 9 Alan Tovar. [address] [place] [address], [id number], [place]. tel:[phone] [facility], [address] [place] [address], [id number] , [place] tel: [phone] [facility] blurry vision (chief complaint)b lurry vision (chief complaint) Other secondary cataract, bilateralOther secondary cataract, right eyeOther secondary cataract, left eyeNonexudative age-related macular degeneration, bilateral, early dry stagePrimary open-angle glaucoma, bilateral, mild stage 9 Alan Tovar. [address] [place] [address], [id number], [place]. tel:[phone] [facility], [address] [place] [address], [id number] , [place] tel: [phone] [facility] decreased vision (chief complaint)d ecreased vision (chief complaint) Primary open-angle glaucoma, bilateral, mild stageOther secondary cataract, bilateralDry eye syndrome of bilateral lacrimal glands 9 Oberreiter Yazmin. [address], [place], [place], [id number], [place]. tel: [phone] [facility], [address] [place] [address], [id number] , [place] tel: [phone] [facility] No Information 9 Oberreiter Yazmin. [address], [place], [place], [id number], [place]. tel:[phone] [facility], [address] [place] [address], [id number] , [place] tel: [phone] [facility] no problems with vision and no complaints (chief complaint)n o problems with vision and no complaints (chief complaint) Primary open-angle glaucoma, bilateral, mild stageMyopia, bilateralPresbyop iaOther secondary cataract, bilateralDry eye syndrome of bilateral lacrimal glands 0-201 8 Oberreiter Yazmin. [address], [place], [place], [id number], [place]. tel:[phone] [facility], [address] [place] [address], [id number] , [place] tel: [phone] [facility] no problems with vision and no complaints (chief complaint)n o problems with vision and no complaints (chief complaint) Primary open-angle glaucoma, bilateral, mild stage Aug-0 7-201 8 Oberreiter Yazmin. [address], [place], [place], [id number], [place]. tel:[phone] Referring Provider: Yazmin Esparza, [address], [place], [address]. tel:[phone] [facility], [address] [place] [address], [id number] , [place] tel: [phone] [facility] dryness (chief complaint)d ryness (chief complaint) Primary open-angle glaucoma, bilateral, mild stage Mar-2 8-201 8 Oberreiter Yazmin. [address], [place], [place], [id number], [place]. tel:[phone] Referring Provider: Yazmin Esparza, [address], [place], [address]. tel:[phone] [facility], [address] [place] [address], [id number] , [place] tel:[phone] [facility] no problems with vision and no complaints (chief complaint)n o problems with vision and no complaints (chief complaint) Primary open-angle glaucoma, bilateral, mild stageDry eye syndrome of bilateral lacrimal glandsOther secondary cataract, bilateralPresbyop ia Gwyn Arce. [address], [place], [place], [id number], [place]. tel:[phone] Referring Provider: Yazmin Esparza, [address], [place], [address]. tel:[phone] [facility], [address] [place] [address], [id number] , [place] tel:[phone] [facility] no problems with vision and no complaints (chief complaint)n o problems with vision and no complaints (chief complaint) Primary open-angle glaucoma, bilateral, mild stage Radha Loyd. [address] [place] [address], [id number], [place]. tel:[phone] Referring Provider: Rach Zuniga, [address] [place] [address], [address]. tel:[phone] [facility], [address] [place] [address], [id number] , [place] tel:[phone] [facility] redness, blurry, and pain (chief complaint)r edness, blurry, and pain (chief complaint) Conjunctival hemorrhage, left eye Gwyn Arce. [address], [place], [place], [id number], [place]. tel:[phone] Referring Provider: Yazmin Esparza, [address], [place], [address]. tel:[phone] [facility], [address] [place] [address], [id number] , [place] tel:[phone] [facility] No Information Gwyn Arce. [address], [place], [place], [id number], [place]. [phone] Referring Provider: Guy Esparza, [address] [place] [address], [address]. tel:[phone] [facility], [address] [place] [address], [id number] , [place] tel:[phone] [facility]- sore and tired (chief complaint) sore and tired (chief complaint) Primary open-angle glaucoma, bilateral, mild stagePresence of intraocular lensDry eye syndrome of bilateral lacrimal glandsMyopia, bilateral May- Gwyn Arce. [address], [place], [place], [id number], [place]. [phone] Referring Provider: Yazmin Esparza, [address], [place], [address]. [phone] [facility], [address] [place] [address], [id number] , [place] tel:[phone] [facility] no problems with vision and no complaints (chief complaint)n o problems with vision and no complaints (chief complaint) Cataract extraction status, right eyeCataract extraction status, left eyePresence of intraocular lensPrimary open-angle glaucoma, bilateral, mild stage Apr- 7 Gwyn Arce. [address], [place], [place], [id number], [place]. [phone] Referring Provider: Yazmin Esparza, [address], [place], [address]. [phone] [facility], [address] [place] [address], [id number] , [place] tel:[phone] [facility] Not sure if va is better or not OD (chief complaint)d enies pain or discomfort OD (chief complaint)N ot sure if va is better or not (chief complaint)d enies pain or discomfort (chief complaint) No Information Gwyn Arce. [address], [place], [place], [id number], [place]. tel:[phone] Referring Provider: Yazmin Esparza, [address], [place], [address]. [phone] [facility], [address] [place] [address], [id number] , [place] tel:[phone] [facility] No Information 7 Alan Tovar. [address] [place] [address], [id number], [place]. tel:[phone] Referring Provider: Guy Esparza, [address] [place] [address], [address]. tel:[phone] [facility], [address] [place] [address], [id number] , [place] tel:[phone] [facility] No Information 7 Alan Tovar. [address] [place] [address], [id number], [place]. tel:[phone] Referring Provider: Guy Esparza, [address] [place] [address], [address]. tel:[phone] [facility], [address] [place] [address], [id number] , tel:[phone] [facility] vision brighter OS (chief complaint)d enies pain or discomfort OS (chief complaint)b lurry vision OD (chief complaint)v ision brighter (chief complaint)d enies pain or discomfort (chief complaint)b lurry vision (chief complaint) No Information Gwyn Arce. [address], [place], [place], [id number], [place]. tel:[phone] Referring Provider: Yazmin Esparza, [address], [place], [address]. tel:[phone] [facility], [address] [place] [address], [id number] , [place] tel:[phone] [facility] No Information 7 Alan Tovar. [address] [place] [address], [id number], [place]. tel:[phone] Referring Provider: Yazmin Esparza, [address], [place], [address]. [phone] [facility], [address] [place] [address], [id number] , [place] tel:[phone] [facility] blurry vision (chief complaint)b lurry vision (chief complaint) Primary open-angle glaucoma, bilateral, mild stagePresbyopiaRe gular astigmatism, bilateral 6 Alan Tovar. [address] [place] [address], [id number], [place]. tel:[phone] Referring Provider: Guy Esparza, [address] [place] [address], [address]. tel:[phone] [facility], [address] [place] [address], [id number] , tel:[phone] [facility] dryness (chief complaint)d ryness (chief complaint) Primary open-angle glaucoma, bilateral, mild stage 6 Gwyn Arce. [address], [place], [place], [id number], [place]. [phone] Referring Provider: Yazmin Esparza, [address], [place], [address]. tel:[phone] [facility], [address] [place] [address], [id number] , [place] tel:[phone] [facility] no problems with vision and no complaints (chief complaint)n o problems with vision and no complaints (chief complaint) Primary open-angle glaucoma, mild stage 6 Oberreiter Yazmin. [address], [place], [place], [id number], [place]. tel:[phone] Referring Provider: Yazmin Esparza, [address], [place], [address]. tel:[phone] [facility], [address] [place] [address], [id number] , [place] [phone] [facility] no problems with vision and no complaints (chief complaint)n o problems with vision and no complaints (chief complaint) Primary open-angle glaucoma, mild stage 6 Oberreiter Yazmin. [address], [place], [place], [id number], [place]. tel:[phone] Referring Provider: Yazmin Esparza, [address], [place], [address]. tel:[phone] [facility], [address] [place] [address], [id number] , [place] [phone] [facility] blurry vision (chief complaint)b lurry vision (chief complaint) Primary open-angle glaucoma, moderate stageAge-related nuclear cataract, bilateralMyopia, bilateralPresbyop ia 6 Oberreiter Yazmin. [address], [place], [place], [id number], [place]. tel:[phone] Referring Provider: Yazmin Esparza, [address], [place], [address]. tel:[phone] [facility], [address] [place] [address], [id number] , [place] tel:[phone] [facility] No Information 6 Oberreiter Yazmin. [address], [place], [place], [id number], [place]. tel:[phone] Referring Provider: Yazmin Esparza, [address], [place], [address]. tel:[phone] [facility], [address] [place] [address], [id number] , tel: [phone] [facility] no problems with vision and no complaints (chief complaint)n o problems with vision and no complaints (chief complaint) Primary open angle glaucomaMild Stage Glaucoma 5 Gwyn Arce. [address], [place], [place], [id number], [place]. tel:[phone] Referring Provider: Yazmin Esparza, [address], [place], [address]. tel:[phone] [facility], [address] [place] [address], [id number] , tel: [phone] [facility] blurry vision (chief complaint)b lurry vision (chief complaint) Mild Stage GlaucomaPrimary open angle glaucomaSenile nuclear sclerosis Gwyn Arce. [address], [place], [place], [id number], [place]. tel:[phone] Referring Provider: Yazmin Esparza, [address], [place], [address]. tel:[phone] [facility], [address] [place] [address], [id number] , [place] tel: [phone] [facility] no problems with V/A and no complaints (chief complaint) Primary open angle glaucomaMild Stage Glaucoma 3 Apte Juanita. [address] [place] [address], [address], [place]. [phone] Referring Provider: Juanita Means V, [address] [place] [address], [address]. tel:[phone] [facility], [address] [place] [address], [id number] , tel:[phone] [facility] no problems with V/A and no complaints (chief complaint) Primary open angle glaucomaMild Stage Glaucoma Oct-0 4-201 3 Apte Juanita. [address] [place] [address], [facility], [place]. tel:[phone] Referring Provider: Juanita Means V, [address] [place] [address], [facility]. tel:[phone] [facility], [address] [place] [address], [id number] , [phone] [facility] no problems with V/A and no complaints (chief complaint) Primary open angle glaucomaMild Stage Glaucoma Sep-2 0-201 3 Apte Juanita. [address] [place] [address], [facility], . tel:[phone] Referring Provider: Juanita Means V, [address] [place] [address], [facility]. tel:[phone] [facility], [address] [place] [address], [id number] , tel:[phone] [facility] no problems with V/A and no complaints (chief complaint) Primary open angle glaucomaMild Stage GlaucomaSenile nuclear sclerosis Chaim-0 - 3 Brian Comer. [address] [place] [address], [address] [facility], [place], [place], [id number], [place]. tel:[phone] Referring Provider: Souleymane Haro, [address] [place] [address] [address], [place], [address]. tel:[phone] [facility], [address] [place] [address], [id number] , [place] tel:[phone] [facility] no problems with V/A and no complaints (chief complaint) Primary open angle glaucomaMild Stage Glaucoma Mar-0 7-201 3 Brian Comer. [facility], [address] [place] [address], [id number], . tel:[phone] Referring Provider: Souleymane Haro, [address] [place] [address] [address] [facility], [place], [address]. [phone] [facility], [address] [place] [address], [id number] , [phone] [facility] no problems with V/A and no complaints (chief complaint) Primary open angle glaucomaMild Stage GlaucomaSenile nuclear sclerosisVitreous degenerationOther vitreous opacities Fe 6 3 Knlakshmi Comer. [address] [place] [address], [address] [place] [address], [address] [place] [address], . [phone] Referring Provider: Souleymane Haro, [address] [place] [address] [address] [place] [address], [address]. tel:[phone] [facility], [address] [place] [address], [id number] , tel:[phone] [facility] no problems with V/A and no complaints (chief complaint) Vitreous degenerationOther vitreous opacitiesPrimary open angle glaucomaMild Stage GlaucomaSenile nuclear sclerosisVitreous degenerationOther vitreous opacities 2 Knlakshmi Comer. [address] [place] [address] [address] [place] [address], [id number], [place]. [phone] Referring Provider: Souleymane Haro, [address] [place] [address] [place] [address], [address]. [phone] [facility], [address] [place] [address], [id number] , tel:[phone] [facility] no problems with V/A and no complaints (chief complaint) Primary open angle glaucomaMild Stage Glaucoma 2 Brian Comer. [address] [place] [address], [address] [place] [address], [id number], [place]. tel:[phone] Referring Provider: Souleymane Haro, [address] [facility] [address], [place], [address]. tel:[phone] [facility], [address] [place] [address], [id number] , tel:[phone] [facility] no problems with V/A and no complaints (chief complaint) Primary open angle glaucomaMild Stage Glaucoma 2 Brian Comer. [address], [place], [place], [id number], [place]. tel:[phone] Referring Provider: Souleymane Haro, [facility] [address], [place], [address]. tel:[phone] [facility], [address] [place] [address], [id number] , tel:[phone] [facility] Reports no problems with V/A and no complaints (chief complaint) Primary open angle glaucomaMODERATE STAGE GLAUCOMASenile nuclear sclerosisMILD STAGE GLAUCOMA 2 Brian Comer. [address] [facility], [address] [place] [address], [id number], [place]. tel:[phone] Referring Provider: Souleymane Haro, [facility] [address], [place], [address]. tel:[phone] [facility], [address] [place] [address], [id number] , tel:[phone] [facility] Reports no problems with V/A and no complaints (chief complaint) Primary open angle glaucomaMODERATE STAGE GLAUCOMASenile nuclear sclerosis 1 Brian Comer. [address], [place], [id number], [place]. tel:[phone] Referring Provider: Souleymane Haro, [address] [facility] [address], [place], [address]. tel:[phone] [facility], [address] [place] [address], [id number] , tel:[phone] [facility] No Information 1 Brian Comer. [address] [place] [address], [address] [facility], [place], [place], [id number], . [phone] Referring Provider: Souleymane Haro, [address] [place] [address] [address] [facility], [place], [address]. [phone] [facility], [address] [place] [address], [id number] , tel:[phone] [facility] No Information 1 Brian [place]. [address] [place] [address], [address] [facility], [place], [place], [id number], . [phone] Referring Provider: Souleymane Haro, [address] [place] [address] [address] [facility], [place], [address]. [phone] [facility], [address] [place] [address], [id number] , [phone] [facility] No Information 0 Brian Comer. [address] [place] [address] [place] [address], [id number], . [phone] Referring Provider: Souleymane Haro, [address] [place] [address] [address] [facility], [place], [address]. [phone] Family History Family Member Type Diagnosis Age At Onset Mother Problem (finding) glaucoma Problem (finding) No Family hist ory of Macular Degeneration Grandmother Problem (finding) Diabetes mellitus Mother Problem (finding) HBP Mother Problem (finding) cataract Payers Payer name Insurance type Covered republican ID Authorluz mariaa tileidy(s) Medicare [place] [id number] [employer] [place] [id number] Social History Type Description Quantity Date Captured Comments Alcohol Use Details Unknown Caffeine Use Details Unknown Tobacco Use Status No Information Smoking Status No Information Sex Female Chief Complaint And Reason For Visit No Information Reason For Referral Reason For Referral No Information Plan Of Treatment Date Type Action Status Referral Referred To: Nitesh Harrell MD [address] [place], [address] Ordered: Referrals: Family Medicine. Nitesh Harrell MD. [...] n 1 month with DEBRA for Refract, TCarolamp Follow up - per surgery Impression/Plan - IO P is good today [...] to call if problems. Follow up - Return i n 4 months with DEBRA for Aimee Ndiaye. HVF (or) may sched c RML for [...] q HS OU and Timolol OU QAM. Impression/Plan - 1. POAG (mild stage) OU: [...] today. Follow up - Return i n 3 months with DEBRA for T, Slamp. Follow up - Return i n 4 [...] Brimonidine. Related to Primary open angle glaucoma - [...]
--- OUTSIDE RECORDS SUMMARY | 2024-05-11 11:59 | XMS_ITS | Continuity of Care Document ---
Author Organization [facility] [place], [facility] Address [address] [place] [address] Phone Care Team Providers Care Piston Maker Name Role Phone Surgery - [place] [facility], [facility] Unavailable Unavailable Procedures Procedure Date [...] Diagnoses Date Provider Providers Copied on Encounter [facility] [place], [facility], [address] [place], [place], [id number], [place] tel:[phone] [facility] [facility] No Information [facility] [place] [facility]. [address] [place], [place], [id number], [place]. tel:[phone] Referring Provider: Guy Esparza, [address] [place], [address]. tel:[phone] [facility] [place], [facility], [address], [place], [place], [id number], [place] tel:[phone] [facility] No Information Surgery - [facility]. [address], [place], [place], [id number], [place]. tel:[phone] Referring Provider: Guy Esparza, [address] [place], [address]. tel:[phone] Family History Family Member Type Diagnosis Age At Onset No Information Payers Payer name Insurance type Covered democrat ID Authoriza tion(s) Medicare [place] MB [id number] [employer] [facility] CI [id number] Social History Type Description Quantity Date Captured [...]
--- OUTSIDE RECORDS SUMMARY | 2024-05-11 11:59 | XMS_ITS | Clinical Summary ---
Author Organization [facility] Address [address] [facility] [place] [address] Care Team Providers Care Watch And Clock Repairer Name Role Phone Tatyana Victoria Primary Care [...] 69 09/06/2017 2:29 PM CDT Temperature 37.1 C (98.7 F) 09/06/2017 2:29 PM CDT Respiratory Rate - - Oxygen Saturation 93% [...] MEDICARE PART A AND B Care Teams Watch And Clock Repairer Relationship Specialty Start Date End Date Tatyana Victoria Provider PCP - General 09/06/17
--- OUTSIDE RECORDS SUMMARY | 2024-05-11 11:59 | XMS_ITS | Clinical Summary ---
Author Organization [facility] Address [address] [place] [id number] Care Team Providers Care Form Setter Steel Pan Forms Name Role Phone None, Provider Primary Care [...] age to complete this topic Care Teams Form Setter [employer] Forms Relationship Specialty Start Date End Date None, Provider, PCP - General 12/19/18
[2024-05-11 12:19] LABS: Alanine Aminotransferase 24 U/L (6-35); Albumin Level 4.2 g/dL (3.5-5.1); Alkaline Phosphatase 58 U/L (38-126); Amylase 49 U/L (30-110); Anion Gap 6 mmol/L (4-12); Aspartate Amino Transferase 29 U/L (14-36); Bilirubin,Total 1.6 mg/dL (0.2-1.3); Blood Urea Nitrogen 19 mg/dL (7-17); Calcium 9.9 mg/dL (8.4-10.2); Carbon Dioxide 35 mmol/L (22-30); Chloride 102 mmol/L (98-107); Estimated Glomerular Filt Rate > 60; Glucose 96 mg/dL (65-110); Lipase 80 U/L (23-300); Potassium 3.7 mmol/L (3.4-5.0); Sodium 143 mmol/L (137-145)
== END 2024-05-11 11:36 | disposition home or self-care (01) ==
LOC: ANHLAB 11:38
PROVIDERS: Visit Provider Nurse Practitioner Adult Health
DX: E78.5 Hyperlipidemia, unspecified (principal); R10.9 Unspecified abdominal pain; R19.5 Other fecal abnormalities
CPT/HCPCS: 36415; 80053; 82150; 83690

== ENCOUNTER 2024-07-08 14:58 | Emergency (ER) | payer MEDICARE, OTHER, SELFPAY ==
--- NOTE | ~2024-07-08 | CT_ITS ---
EXAMINATION: CT cervical spine wo con DATE: 07/08/2024 15:38 INDICATION: fall-thinners TECHNIQUE: Computed tomography (CT) of the cervical spine was performed without intravenous contrast. Automated exposure control and iterative reconstruction technique were employed. The dose-length pro duct was 461.56 mGy-cm. COMPARISON: CTA brain carotid 03/31/2024. FINDINGS: Vertebral Body Alignment: Intact. Cervical straightening. Craniocervical and atlantoaxial alignment: Moderate degenerative change. Alignment intact. Osseous structures/fracture: No evidence of a lytic or blastic process in the visualized spine. No e vidence of acute fracture. Bilateral C2-3 and left C3-4 facet fusion. Cervical soft tissues: The paraspinal soft tissues planes are maintained. Degenerative changes: Degenerative changes, without severe neural foraminal or central canal narrowin g. IMPRESSION: No acute fracture or traumatic malalignment in the cervical spine. Reviewed, dictated and finalized at location K.
--- NOTE | ~2024-07-08 | CT_ITS ---
EXAMINATION: CT brain wo con DATE: 07/08/2024 15:38 INDICATION: fall-thinners . TECHNIQUE: Computed tomography (CT) of the head was performed without intravenous contrast. The mA wa s adjusted according to patient size. Iterative reconstruction technique was employed. The dose-lengt h product was 605.33 mGy-cm. COMPARISON: CTA brain carotid and MRI brain 03/31/2024. FINDINGS: No acute intracranial hemorrhage or extra-axial fluid collection. No hydrocephalus, mass, or herniation. No acute ischemic infarct. Unremarkable dural venous sinus attenuation. No acute osseous abnormality. The aerated spaces are clear. Mild atrophy and chronic white matter change. Atherosclerotic intracranial calcification. Bilateral l ens replacements. Bilateral basal ganglia lacunar infarcts. IMPRESSION: No acute intracranial process. Reviewed, dictated and finalized at location K.
--- OUTSIDE RECORDS SUMMARY | 2024-07-08 15:01 | XMS_ITS | Continuity of Care Document ---
Author Organization [facility], L TD Address [address] [place] [address] Phone Care Team Providers Care Parts Counter Associate Name Role Phone Oberreiter OD, Yazmin Unavailable Unavailabl e Allergies, Adverse Reactions, Alerts Substance Reaction Status Criticality Penicillins Unknown(unknown) Active Unable to A [facility] Medications Medication Instructions Dosage Effective Dates [...] EYE EXAM ESTABLISHED PAT EYE EXAM ESTABLISHED [facility], [facility]ICAL JRAAMILLO VISUAL FIELD EYE EXAM ESTABLISHED PATIENT, MEDICAL No REFRACTION OPTIONAL UPDATE Scan Image/ OCT, Glaucoma EYE EXAM ESTABLISHED [facility] JARAMILLO VISUAL FIELD EYE EXAM ESTABLISHED [facility] IOL Frame Medicare UV lens/es Medicare UV lens/es Postoperative Exam REFRACTION UPDATE Postoperative Exam REFRACTION NO CHARGE Postoperative Exam CATARACT SURG W/IOL IOL MASTER, PROF COMP ONLY Postoperative Exam CATARACT SURG W/IOL EYE EXAM ESTABLISHED PATIENT, MEDICAL De REFRACTION NO UPDATE IOL MASTER Post Operative Kit / Medical Supply By P rescription EYE EXAM ESTABLISHED [facility], MEDICAL EYE EXAM ESTABLISHED PATIENT, MEDICAL Ju Scan Image/ OCT, Glaucoma EYE EXAM ESTABLISHED [facility], [facility] EYE EXAM ESTABLISHED [facility] JARAMILLO VISUAL FIELD Vision svcs frames purchases Lens Hi Index 1.66/1.67 Trifocal Lens Photochromatic Tint Progressive lens per lens A/R Standard Miscellaneous vision service UV Lens EYE EXAM ESTABLISHED [facility] EYE EXAM ESTABLISHED PATIENTDORY Au REFRACTION OPTIONAL UPDATE Scan Image/ OCT, Glaucoma EYE EXAM ESTABLISHED [facility] EYE EXAM ESTABLISHED [facility] EYE EXAM ESTABLISHED PATIENT, MEDICAL Se JARAMILLO VISUAL FIELD EYE EXAM ESTABLISHED [facility] EYE EXAM ESTABLISHED [facility], [facility] GONIOSCOPY EYE EXAM ESTABLISHED [facility] EYE EXAM ESTABLISHED PATIENT, MEDICAL No REFRACTION NO UPDATE Scan Image/ OCT, Glaucoma EYE EXAM ESTABLISHED [facility] JARAMILLO VISUAL FIELD, BI-LATERAL EYE EXAM ESTABLISHED [facility] EYE EXAM ESTABLISHED [facility] GONIOSCOPY EYE EXAM ESTABLISHED PATIENT MEDICAL Oc Scan Image/ OCT, Glaucoma EYE EXAM ESTABLISHED [facility] JARAMILLO VISUAL FIELD, BI-LATERAL Frame EYE EXAM ESTABLISHED PATIENTDORY Se p SCAN IMAGING, BI-LATERAL Advance Directives Directive Yes / No Effective Date File Name No Information Encounters Encounter Description Practice Location Reason(s) For Visit Diagnoses Date Provider Providers Copied on Encounter [facility], [address] [place] [address], [id number] , tel:[phone] [facility] No Information 2 Oberreiter Yazmin. [address] [place], [place], [id number], [place]. tel:[phone] [facility], [address] [place] [address], [id number] , tel:[phone] [facility] No Information 2 Oberreiter Yazmin. [address], [place], [place], [id number], [place]. tel:[phone] [facility], [address] [place] [address], [id number] , tel:[phone] [facility] no problems with vision and no complaints (chief complaint)n o problems with vision and no complaints (chief complaint) Nonexudative age-related macular degeneration, bilateral, early dry stagePrimary open-angle glaucoma, bilateral, mild stagePresence of intraocular lensMyopia, bilateralPresbyop iaRegular astigmatism, bilateralDry eye syndrome of bilateral lacrimal glands 1 Oberreiter Yazmin. [address], [place], [place], [id number], [place]. tel:[phone] [facility], [address] [place] [address], [id number] , [place] tel:[phone] [facility] no problems with vision and no complaints (chief complaint)n o problems with vision and no complaints (chief complaint) Myopia, bilateralRegular astigmatism, right eyePresbyopiaPrim dario open-angle glaucoma, bilateral, mild stagePresence of intraocular lensNonexudative age-related macular degeneration, bilateral, early dry stage Oct-2 9 Oberreiter Yazmin. [address], [place], [place], [id number], [place]. tel:[phone] [facility], [address] [place] [address], [id number] , [place] tel:[phone] [facility] no problems with vision and no complaints (chief complaint)n o problems with vision and no complaints (chief complaint) Other specified postprocedural statesNonexudativ e age-related macular degeneration, bilateral, early dry stagePrimary open-angle glaucoma, bilateral, mild stageMyopia, bilateralPresbyop ia Chaim- 9 Oberreiter Yazmin. [address], [place], [place], [id number], [place]. tel:[phone] [facility], [address] [place] [address], [id number] , [place] tel: [phone] [facility] No Information 9 Oberreiter Yazmin. [address], [place], [place], [id number], [place]. tel: [phone] [facility], [address] [place] [address], [id number] , [place] tel: [phone] [facility] blurry vision (chief complaint)b lurry vision (chief complaint) Other secondary cataract, left eye 9 Alan Tovar. [address] [place] [address], [id number], [place]. tel:[phone] [facility], [address] [place] [address], [id number] , [place] tel: [phone] [facility] blurry vision (chief complaint)b lurry vision (chief complaint) Other secondary cataract, bilateralOther secondary cataract, right eyeOther secondary cataract, left eyeNonexudative age-related macular degeneration, bilateral, early dry stagePrimary open-angle glaucoma, bilateral, mild stage 9 Alan Tovar. [address] [place] [address], [id number], [place]. tel:[phone] [facility], [address] [place] [address], [id number] , [place] tel: [phone] [facility] decreased vision (chief complaint)d ecreased vision (chief complaint) Primary open-angle glaucoma, bilateral, mild stageOther secondary cataract, bilateralDry eye syndrome of bilateral lacrimal glands 9 Oberreiter Yazmin. [address], [place], [place], [id number], [place]. tel: [phone] [facility], [address] [place] [address], [id number] , [place] tel: [phone] [facility] No Information 9 Oberreiter Yazmin. [address], [place], [place], [id number], [place]. tel:[phone] [facility], [address] [place] [address], [id number] , [place] tel: [phone] [facility] no problems with vision and no complaints (chief complaint)n o problems with vision and no complaints (chief complaint) Primary open-angle glaucoma, bilateral, mild stageMyopia, bilateralPresbyop iaOther secondary cataract, bilateralDry eye syndrome of bilateral lacrimal glands 0-201 8 Oberreiter Yazmin. [address], [place], [place], [id number], [place]. tel:[phone] [facility], [address] [place] [address], [id number] , [place] tel: [phone] [facility] no problems with vision and no complaints (chief complaint)n o problems with vision and no complaints (chief complaint) Primary open-angle glaucoma, bilateral, mild stage Aug-0 7-201 8 Oberreiter Yazmin. [address], [place], [place], [id number], [place]. tel:[phone] Referring Provider: Yazmin Esparza, [address], [place], [address]. tel:[phone] [facility], [address] [place] [address], [id number] , [place] tel: [phone] [facility] dryness (chief complaint)d ryness (chief complaint) Primary open-angle glaucoma, bilateral, mild stage Mar-2 8-201 8 Oberreiter Yazmin. [address], [place], [place], [id number], [place]. tel:[phone] Referring Provider: Yazmin Esparza, [address], [place], [address]. tel:[phone] [facility], [address] [place] [address], [id number] , [place] tel:[phone] [facility] no problems with vision and no complaints (chief complaint)n o problems with vision and no complaints (chief complaint) Primary open-angle glaucoma, bilateral, mild stageDry eye syndrome of bilateral lacrimal glandsOther secondary cataract, bilateralPresbyop ia Gwyn Arce. [address], [place], [place], [id number], [place]. tel:[phone] Referring Provider: Yazmin Esparza, [address], [place], [address]. tel:[phone] [facility], [address] [place] [address], [id number] , [place] tel:[phone] [facility] no problems with vision and no complaints (chief complaint)n o problems with vision and no complaints (chief complaint) Primary open-angle glaucoma, bilateral, mild stage Radha Loyd. [address] [place] [address], [id number], [place]. tel:[phone] Referring Provider: Rach Zuniga, [address] [place] [address], [address]. tel:[phone] [facility], [address] [place] [address], [id number] , [place] tel:[phone] [facility] redness, blurry, and pain (chief complaint)r edness, blurry, and pain (chief complaint) Conjunctival hemorrhage, left eye Gwyn Arce. [address], [place], [place], [id number], [place]. tel:[phone] Referring Provider: Yazmin Esparza, [address], [place], [address]. tel:[phone] [facility], [address] [place] [address], [id number] , [place] tel:[phone] [facility] No Information Gwyn Arce. [address], [place], [place], [id number], [place]. [phone] Referring Provider: Guy Esparza, [address] [place] [address], [address]. tel:[phone] [facility], [address] [place] [address], [id number] , [place] tel:[phone] [facility]- sore and tired (chief complaint) sore and tired (chief complaint) Primary open-angle glaucoma, bilateral, mild stagePresence of intraocular lensDry eye syndrome of bilateral lacrimal glandsMyopia, bilateral May- Gwyn Arce. [address], [place], [place], [id number], [place]. [phone] Referring Provider: Yazmin Esparza, [address], [place], [address]. [phone] [facility], [address] [place] [address], [id number] , [place] tel:[phone] [facility] no problems with vision and no complaints (chief complaint)n o problems with vision and no complaints (chief complaint) Cataract extraction status, right eyeCataract extraction status, left eyePresence of intraocular lensPrimary open-angle glaucoma, bilateral, mild stage Apr- 7 Gwyn Arce. [address], [place], [place], [id number], [place]. [phone] Referring Provider: Yazmin Esparza, [address], [place], [address]. [phone] [facility], [address] [place] [address], [id number] , [place] tel:[phone] [facility] Not sure if va is better or not OD (chief complaint)d enies pain or discomfort OD (chief complaint)N ot sure if va is better or not (chief complaint)d enies pain or discomfort (chief complaint) No Information Gwyn Arce. [address], [place], [place], [id number], [place]. tel:[phone] Referring Provider: Yazmin Esparza, [address], [place], [address]. [phone] [facility], [address] [place] [address], [id number] , [place] tel:[phone] [facility] No Information 7 Alan Tovar. [address] [place] [address], [id number], [place]. tel:[phone] Referring Provider: Guy Esparza, [address] [place] [address], [address]. tel:[phone] [facility], [address] [place] [address], [id number] , [place] tel:[phone] [facility] No Information 7 Alan Tovar. [address] [place] [address], [id number], [place]. tel:[phone] Referring Provider: Guy Esparza, [address] [place] [address], [address]. tel:[phone] [facility], [address] [place] [address], [id number] , tel:[phone] [facility] vision brighter OS (chief complaint)d enies pain or discomfort OS (chief complaint)b lurry vision OD (chief complaint)v ision brighter (chief complaint)d enies pain or discomfort (chief complaint)b lurry vision (chief complaint) No Information Gwyn Arce. [address], [place], [id number], [place]. tel:[phone] Referring Provider: Yazmin Esparza, [address], [place], [address]. tel:[phone] [facility], [address] [place] [address], [id number] , [place] tel:[phone] [facility] No Information 7 Alan Tovar. [address] [place] [address], [id number], [place]. tel:[phone] Referring Provider: Yazmin Esparza, [address], [place], [address]. [phone] [facility], [address] [place] [address], [id number] , [place] tel:[phone] [facility] blurry vision (chief complaint)b lurry vision (chief complaint) Primary open-angle glaucoma, bilateral, mild stagePresbyopiaRe gular astigmatism, bilateral 6 Alan Tovar. [address] [place] [address], [id number], [place]. tel:[phone] Referring Provider: Guy Esparza, [address] [place] [address], [address]. tel:[phone] [facility], [address] [place] [address], [id number] , tel:[phone] [facility] dryness (chief complaint)d ryness (chief complaint) Primary open-angle glaucoma, bilateral, mild stage 6 Gwyn Arce. [address], [place], [id number], [place]. [phone] Referring Provider: Yazmin Esparza, [address], [place], [address]. tel:[phone] [facility], [address] [place] [address], [id number] , [place] tel:[phone] [facility] no problems with vision and no complaints (chief complaint)n o problems with vision and no complaints (chief complaint) Primary open-angle glaucoma, mild stage 6 Oberreiter Yazmin. [address], [place], [place], [id number], [place]. tel:[phone] Referring Provider: Yazmin Esparza, [address], [place], [address]. tel:[phone] [facility], [address] [place] [address], [id number] , [place] [phone] [facility] no problems with vision and no complaints (chief complaint)n o problems with vision and no complaints (chief complaint) Primary open-angle glaucoma, mild stage 6 Oberreiter Yazmin. [address], [place], [place], [id number], [place]. tel:[phone] Referring Provider: Yazmin Esparza, [address], [place], [address]. tel:[phone] [facility], [address] [place] [address], [id number] , [place] [phone] [facility] blurry vision (chief complaint)b lurry vision (chief complaint) Primary open-angle glaucoma, moderate stageAge-related nuclear cataract, bilateralMyopia, bilateralPresbyop ia 6 Oberreiter Yazmin. [address], [place], [place], [id number], [place]. tel:[phone] Referring Provider: Yazmin Esparza, [address], [place], [address]. tel:[phone] [facility], [address] [place] [address], [id number] , [place] tel:[phone] [facility] No Information 6 Oberreiter Yazmin. [address], [place], [id number], [place]. tel:[phone] Referring Provider: Yazmin Esparza, [address], [place], [address]. tel:[phone] [facility], [address] [place] [address], [id number] , tel: [phone] [facility] no problems with vision and no complaints (chief complaint)n o problems with vision and no complaints (chief complaint) Primary open angle glaucomaMild Stage Glaucoma 5 Gwyn Arce. [address], [place], [id number], [place]. tel:[phone] Referring Provider: Yazmin Esparza, [address], [place], [address]. tel:[phone] [facility], [address] [place] [address], [id number] , tel: [phone] [facility] blurry vision (chief complaint)b lurry vision (chief complaint) Mild Stage GlaucomaPrimary open angle glaucomaSenile nuclear sclerosis Gwyn Arce. [address], [place], [place], [id number], [place]. tel:[phone] Referring Provider: Yazmin Esparza, [address], [place], [address]. tel:[phone] [facility], [address] [place] [address], [id number] , [place] tel: [phone] [facility] no problems with V/A and no complaints (chief complaint) Primary open angle glaucomaMild Stage Glaucoma 3 Apte Juanita. [address] [place] [address], [address], [place]. [phone] Referring Provider: Juanita Means V, [address] [place] [address], [address]. tel:[phone] [facility], [address] [place] [address], [id number] , tel:[phone] [facility] no problems with V/A and no complaints (chief complaint) Primary open angle glaucomaMild Stage Glaucoma Oct-0 4-201 3 Apte Juanita. [address] [place] [address], [facility], [place]. tel:[phone] Referring Provider: Juanita Means V, [address] [place] [address], [facility]. tel:[phone] [facility], [address] [place] [address], [id number] , [phone] [facility] no problems with V/A and no complaints (chief complaint) Primary open angle glaucomaMild Stage Glaucoma Sep-2 0-201 3 Apte Juanita. [address] [place] [address], [facility], . tel:[phone] Referring Provider: Juanita Means V, [address] [place] [address], [facility]. tel:[phone] [facility], [address] [place] [address], [id number] , tel:[phone] [facility] no problems with V/A and no complaints (chief complaint) Primary open angle glaucomaMild Stage GlaucomaSenile nuclear sclerosis Chaim-0 - 3 Brian Comer. [address] [place] [address], [address] [facility], [place], [place], [id number], [place]. tel:[phone] Referring Provider: Souleymane Haro, [address] [place] [address] [address], [place], [address]. tel:[phone] [facility], [address] [place] [address], [id number] , [place] tel:[phone] [facility] no problems with V/A and no complaints (chief complaint) Primary open angle glaucomaMild Stage Glaucoma Mar-0 7-201 3 Brian Comer. [facility], [address] [place] [address], [id number], . tel:[phone] Referring Provider: Souleymane Haro, [address] [place] [address] [address] [facility], [place], [address]. [phone] [facility], [address] [place] [address], [id number] , [phone] [facility] no problems with V/A and no complaints (chief complaint) Primary open angle glaucomaMild Stage GlaucomaSenile nuclear sclerosisVitreous degenerationOther vitreous opacities Fe 6 3 Knlakshmi Comer. [address] [place] [address], [address] [place] [address], [address] [place] [address], . [phone] Referring Provider: Souleymane Haro, [address] [place] [address] [address] [place] [address], [address]. tel:[phone] [facility], [address] [place] [address], [id number] , tel:[phone] [facility] no problems with V/A and no complaints (chief complaint) Vitreous degenerationOther vitreous opacitiesPrimary open angle glaucomaMild Stage GlaucomaSenile nuclear sclerosisVitreous degenerationOther vitreous opacities 2 Knlakshmi Comer. [address] [place] [address] [address] [place] [address], [id number], [place]. [phone] Referring Provider: Souleymane Haro, [address] [place] [address] [address] [place] [address], [address]. [phone] [facility], [address] [place] [address], [id number] , tel:[phone] [facility] no problems with V/A and no complaints (chief complaint) Primary open angle glaucomaMild Stage Glaucoma 2 Brian Comer. [address] [place] [address], [address] [place] [address], [id number], [place]. tel:[phone] Referring Provider: Souleymane Haro, [address] [facility] [address], [place], [address]. tel:[phone] [facility], [address] [place] [address], [id number] , tel:[phone] [facility] no problems with V/A and no complaints (chief complaint) Primary open angle glaucomaMild Stage Glaucoma 2 Brian Comer. [address], [place], [place], [id number], [place]. tel:[phone] Referring Provider: Souleymane Haro, [facility] [address], [place], [address]. tel:[phone] [facility], [address] [place] [address], [id number] , tel:[phone] [facility] Reports no problems with V/A and no complaints (chief complaint) Primary open angle glaucomaMODERATE STAGE GLAUCOMASenile nuclear sclerosisMILD STAGE GLAUCOMA 2 Brian Comer. [address] [facility], [address] [place] [address], [id number], [place]. tel:[phone] Referring Provider: Souleymane Haro, [facility] [address], [place], [address]. tel:[phone] [facility], [address] [place] [address], [id number] , tel:[phone] [facility] Reports no problems with V/A and no complaints (chief complaint) Primary open angle glaucomaMODERATE STAGE GLAUCOMASenile nuclear sclerosis 1 Brian Comer. [address], [place], [id number], [place]. tel:[phone] Referring Provider: Souleymane Haro, [address] [facility] [address], [place], [address]. tel:[phone] [facility], [address] [place] [address], [id number] , tel:[phone] [facility] No Information 1 Brian Comer. [address] [place] [address], [address] [facility], [place], [place], [id number], . [phone] Referring Provider: Souleymane Haro, [address] [place] [address] [address] [facility], [place], [address]. [phone] [facility], [address] [place] [address], [id number] , tel:[phone] [facility] No Information 1 Brian Comer. [address] [place] [address], [address] [facility], [place], [id number], . [phone] Referring Provider: Souleymane Haro, [address] [place] [address] [address] [facility], [place], [address]. [phone] [facility], [address] [place] [address], [id number] , tel:[phone] [facility] No Information 0 Brian Comer. [address] [place] [address] [place] [address], [id number], . [phone] Referring Provider: Souleymane Haro, [address] [place] [address] [address] [facility], [place], [address]. [phone] Family History Family Member Type Diagnosis Age At Onset Mother Problem (finding) glaucoma Problem (finding) No Family hist ory of Macular Degeneration Grandmother Problem (finding) Diabetes mellitus Mother Problem (finding) HBP Mother Problem (finding) cataract Payers Payer name Insurance type Covered libertarian ID Authorluz mariaa tileidy(s) Medicare [place] MB [id number] [employer] [place] [address] CI [id number] Social History Type Description Quantity Date Captured Comments Alcohol Use Details Unknown Caffeine Use Details Unknown Tobacco Use Status No Information Smoking Status No Information Sex Female Chief Complaint And Reason For Visit No Information Reason For Referral Reason For Referral No Information Plan Of Treatment Date Type Action Status Referral Referred To: Nitesh Harrell MD [address] [place], [address] Ordered: Referrals: Family Medicine. Nitesh Harrell MD. [...] 4 months with [facility] for T, Slamp. Follow [...] open-angle glaucoma, bilateral, mild stage Impression/Plan - Garber bconjuncitval hemmorhage is present [...] resolve, come in RONNIE. Follow up - As scheduled Follow up - Return i n 4 [...] pt back in 4 months for HVF. Impression/Plan - 1. gls rx update avail. [...] no retinal tear's or hole's. no ARMD Follow up - Return i n 6 months with [facility] for T, Slamp. HVF - Return in 4 months with [facility] [...] Primary open angle glaucoma - Return in 6wks wit h SHAYNE for Visual Field (30-2), T and slamp. Related to Primary open angle glaucoma MILD [...]
--- OUTSIDE RECORDS SUMMARY | 2024-07-08 15:01 | XMS_ITS | Continuity of Care Document ---
Author Organization [facility] - [place], [facility] Address [address] [place] [address] Phone Care Team Providers Care Patient Care Representative Name Role Phone Surgery - [place] [facility], [facility] Unavailable Unavailable Procedures Procedure Date [...] Diagnoses Date Provider Providers Copied on Encounter [facility] [place], [facility], [address] [place], [place], [id number], [place] tel:[phone] [facility] No Information Surgery - [place] [facility]. [address] [place], [place], [id number], [place]. tel:[phone] Referring Provider: Guy Esparza, [address] [place], [address]. tel:[phone] [facility] [place], [facility], [address], [place], [place], [id number], [place] tel:[phone] [facility] No Information Surgery - [facility]. [address], [place], [place], [id number], [place]. tel:[phone] Referring Provider: Guy Esparza, [address] [place], [address]. tel:[phone] Family History Family Member Type Diagnosis Age At Onset No Information Payers Payer name Insurance type Covered constitution party ID Authoriza tion(s) Medicare [place] MB [id number] [employer] [facility] CI [id number] Social History Type Description Quantity Date Captured [...]
--- OUTSIDE RECORDS SUMMARY | 2024-07-08 15:01 | XMS_ITS | Clinical Summary ---
Author Organization [facility] Address [address] [place] [address] Care Team Providers Care Supervisor Dumping Name Role Phone Tatyana Victoria Primary Care [...] Colonography Q 5 years 1994 PNEUMOCOCCAL VACCINE 50+ YEARS (1 of 1 - PCV) 02/15/19 99 ZOSTER VACCINE (1 of 2) 1999 OSTEOPOROSIS SCREENING 2014 INFLUENZA VACCINE (#1) 2023 RSV VACCINE (60+ or ) (1 - 1-dose 75+ series) 02/16/2024 Insurance MEDICARE PART A AND B Care Teams Supervisor Dumping Relationship Specialty Start Date End Date Tatyana Victoria Provider PCP - General 09/06/17
--- OUTSIDE RECORDS SUMMARY | 2024-07-08 15:01 | XMS_ITS | Clinical Summary ---
Author Organization [facility] Address [address] [place] [id number] Care Team Providers Care Principal Research Economist Name Role Phone None, Provider Primary Care [...] Td Vaccines ( 1 - Tdap) 02/16/1968 Pneumococcal Vaccine: 50+ Years (1 of 1 - PCV) 1999 Zoster Vaccines (1 of 2) 1999 Dexa Scan (General) 2014 COVID-19 Vaccine (3 - 2023-2 5 season) 2023 06/23/2020, 05/30/2020 RSV Immunization or 60+ Years (1 - [...] age to complete this topic Care Teams Principal Research Economist Relationship Specialty Start Date End Date None, Provider, PCP - General 12/19/18
[2024-07-08 15:06] VITALS: BP 160/81; PULSE 67; RESP 16; TEMP 37; O2SAT 98
--- NOTE | 2024-07-08 15:15 | PC.NURSE ---
pt very agitated in triage after having BP taken after using the bathroom. pt irate and being unreasonable. Walked away to allow deescalation.Had another RN take pt to room in wheelchair for further evaluation
--- OUTSIDE RECORDS SUMMARY | 2024-07-08 15:15 | XMS_ITS | Continuity of Care Document ---
Author Organization [facility], L TD Address [address] [place] [address] Phone Care Team Providers Care Wrapper Stemmer Operator Name Role Phone Oberreiter OD, Yazmin Unavailable Unavailabl e Allergies, Adverse Reactions, Alerts Substance Reaction Status Criticality Penicillins Unknown(unknown) Active Unable to A [facility] Medications Medication Instructions Dosage Effective Dates (start [...] EYE EXAM ESTABLISHED PAT EYE EXAM ESTABLISHED [facility], MEDICAL [place]AR[place]O VISUAL FIELD EYE EXAM ESTABLISHED PATIENT, MEDICAL No REFRACTION OPTIONAL UPDATE Scan Image/ OCT, Glaucoma EYE EXAM ESTABLISHED [facility] JARAMILLO VISUAL FIELD EYE EXAM ESTABLISHED [facility] IOL Frame Medicare UV lens/es Medicare UV lens/es Postoperative Exam REFRACTION UPDATE Postoperative Exam REFRACTION NO CHARGE Postoperative Exam CATARACT SURG W/IOL IOL MASTER, PROF COMP ONLY Postoperative Exam CATARACT SURG W/IOL EYE EXAM ESTABLISHED PATIENT, MEDICAL De REFRACTION NO UPDATE IOL MASTER Post Operative Kit / Medical Supply By P rescription EYE EXAM ESTABLISHED [facility], MEDICAL EYE EXAM ESTABLISHED PATIENT, MEDICAL Ju Scan Image/ OCT, Glaucoma EYE EXAM ESTABLISHED [facility], [facility] EYE EXAM ESTABLISHED [facility] JARAMILLO VISUAL FIELD Vision svcs frames purchases Lens Hi Index 1.66/1.67 Trifocal Lens Photochromatic Tint Progressive lens per lens A/R Standard Miscellaneous vision service UV Lens EYE EXAM ESTABLISHED [facility] EYE EXAM ESTABLISHED PATIENTDORY Au REFRACTION OPTIONAL UPDATE Scan Image/ OCT, Glaucoma EYE EXAM ESTABLISHED [facility] EYE EXAM ESTABLISHED [facility] EYE EXAM ESTABLISHED PATIENT, MEDICAL Se JARAMLILO VISUAL FIELD EYE EXAM ESTABLISHED [facility] EYE EXAM ESTABLISHED [facility], [facility] GONIOSCOPY EYE EXAM ESTABLISHED [facility] EYE EXAM ESTABLISHED PATIENT, MEDICAL No REFRACTION NO UPDATE Scan Image/ OCT, Glaucoma EYE EXAM ESTABLISHED [facility] JARAMILLO VISUAL FIELD, BI-LATERAL EYE EXAM ESTABLISHED [facility] EYE EXAM ESTABLISHED [facility] GONIOSCOPY EYE EXAM ESTABLISHED PATIENT MEDICAL Oc Scan Image/ OCT, Glaucoma EYE EXAM ESTABLISHED [facility] JARAMILLO VISUAL FIELD, BI-LATERAL Frame EYE EXAM ESTABLISHED PATIENTDORY Se p SCAN IMAGING, BI-LATERAL Advance Directives Directive Yes / No Effective Date File Name No Information Encounters Encounter Description Practice Location Reason(s) For Visit Diagnoses Date Provider Providers Copied on Encounter [facility], [address] [place] [address], [id number] , tel:[phone] [facility] No Information 2 Oberreiter Yazmin. [address] [place], [id number], [place]. tel:[phone] [facility], [address] [place] [address], [id number] , tel:[phone] [facility] 2 Oberreiter Yazmin. [address], [place], [place], [id number], [place]. tel:[phone] [facility], [address] [place] [address], [id number] , tel:[phone] [facility] no problems with vision and no complaints (chief complaint)n o problems with vision and no complaints (chief complaint) Nonexudative age-related macular degeneration, bilateral, early dry stagePrimary open-angle glaucoma, bilateral, mild stagePresence of intraocular lensMyopia, bilateralPresbyop iaRegular astigmatism, bilateralDry eye syndrome of bilateral lacrimal glands 1 Oberreiter Yazmin. [address], [place], [place], [id number], [place]. tel:[phone] [facility], [address] [place] [address], [id number] , [place] tel:[phone] [facility] no problems with vision and no complaints (chief complaint)n o problems with vision and no complaints (chief complaint) Myopia, bilateralRegular astigmatism, right eyePresbyopiaPrim dario open-angle glaucoma, bilateral, mild stagePresence of intraocular lensNonexudative age-related macular degeneration, bilateral, early dry stage Oct-2 9 Oberreiter Yazmin. [address], [place], [place], [id number], [place]. tel:[phone] [facility], [address] [place] [address], [id number] , [place] tel:[phone] [facility] no problems with vision and no complaints (chief complaint)n o problems with vision and no complaints (chief complaint) Other specified postprocedural statesNonexudativ e age-related macular degeneration, bilateral, early dry stagePrimary open-angle glaucoma, bilateral, mild stageMyopia, bilateralPresbyop ia Chaim- 9 Oberreiter Yazmin. [address], [place], [place], [id number], [place]. tel:[phone] [facility], [address] [place] [address], [id number] , [place] tel: [phone] [facility] No Information 9 Oberreiter Yazmin. [address], [place], [place], [id number], [place]. tel: [phone] [facility], [address] [place] [address], [id number] , [place] tel: [phone] [facility] blurry vision (chief complaint)b lurry vision (chief complaint) Other secondary cataract, left eye 9 Alan Tovar. [address] [place] [address], [id number], [place]. tel:[phone] [facility], [address] [place] [address], [id number] , [place] tel: [phone] [facility] blurry vision (chief complaint)b lurry vision (chief complaint) Other secondary cataract, bilateralOther secondary cataract, right eyeOther secondary cataract, left eyeNonexudative age-related macular degeneration, bilateral, early dry stagePrimary open-angle glaucoma, bilateral, mild stage 9 Alan Tovar. [address] [place] [address], [id number], [place]. tel:[phone] [facility], [address] [place] [address], [id number] , [place] tel: [phone] [facility] decreased vision (chief complaint)d ecreased vision (chief complaint) Primary open-angle glaucoma, bilateral, mild stageOther secondary cataract, bilateralDry eye syndrome of bilateral lacrimal glands 9 Oberreiter Yazmin. [address], [place], [place], [id number], [place]. tel: [phone] [facility], [address] [place] [address], [id number] , [place] tel: [phone] [facility] No Information 9 Oberreiter Yazmin. [address], [place], [place], [id number], [place]. tel:[phone] [facility], [address] [place] [address], [id number] , [place] tel: [phone] [facility] no problems with vision and no complaints (chief complaint)n o problems with vision and no complaints (chief complaint) Primary open-angle glaucoma, bilateral, mild stageMyopia, bilateralPresbyop iaOther secondary cataract, bilateralDry eye syndrome of bilateral lacrimal glands 0-201 8 Oberreiter Yazmin. [address], [place], [place], [id number], [place]. tel:[phone] [facility], [address] [place] [address], [id number] , [place] tel: [phone] [facility] no problems with vision and no complaints (chief complaint)n o problems with vision and no complaints (chief complaint) Primary open-angle glaucoma, bilateral, mild stage Aug-0 7-201 8 Oberreiter Yazmin. [address], [place], [place], [id number], [place]. tel:[phone] Referring Provider: Yazmin Esparza, [address], [place], [address]. tel:[phone] [facility], [address] [place] [address], [id number] , [place] tel: [phone] [facility] dryness (chief complaint)d ryness (chief complaint) Primary open-angle glaucoma, bilateral, mild stage Mar-2 8-201 8 Oberreiter Yazmin. [address], [place], [place], [id number], [place]. tel:[phone] Referring Provider: Yazmin Esparza, [address], [place], [address]. tel:[phone] [facility], [address] [place] [address], [id number] , [place] tel:[phone] [facility] no problems with vision and no complaints (chief complaint)n o problems with vision and no complaints (chief complaint) Primary open-angle glaucoma, bilateral, mild stageDry eye syndrome of bilateral lacrimal glandsOther secondary cataract, bilateralPresbyop ia Gwyn Arce. [address], [place], [place], [id number], [place]. tel:[phone] Referring Provider: Yazmin Esparza, [address], [place], [address]. tel:[phone] [facility], [address] [place] [address], [id number] , [place] tel:[phone] [facility] no problems with vision and no complaints (chief complaint)n o problems with vision and no complaints (chief complaint) Primary open-angle glaucoma, bilateral, mild stage Radha Loyd. [address] [place] [address], [id number], [place]. tel:[phone] Referring Provider: Rach Zuniga, [address] [place] [address], [address]. tel:[phone] [facility], [address] [place] [address], [id number] , [place] tel:[phone] [facility] redness, blurry, and pain (chief complaint)r edness, blurry, and pain (chief complaint) Conjunctival hemorrhage, left eye Gwyn Arce. [address], [place], [place], [id number], [place]. tel:[phone] Referring Provider: Yazmin Esparza, [address], [place], [address]. tel:[phone] [facility], [address] [place] [address], [id number] , [place] tel:[phone] [facility] No Information Gwyn Arce. [address], [place], [place], [id number], [place]. [phone] Referring Provider: Guy Esparza, [address] [place] [address], [address]. tel:[phone] [facility], [address] [place] [address], [id number] , [place] tel:[phone] [facility]- sore and tired (chief complaint) sore and tired (chief complaint) Primary open-angle glaucoma, bilateral, mild stagePresence of intraocular lensDry eye syndrome of bilateral lacrimal glandsMyopia, bilateral May- Gwyn Arce. [address], [place], [place], [id number], [place]. [phone] Referring Provider: Yazmin Esparza, [address], [place], [address]. [phone] [facility], [address] [place] [address], [id number] , [place] tel:[phone] [facility] no problems with vision and no complaints (chief complaint)n o problems with vision and no complaints (chief complaint) Cataract extraction status, right eyeCataract extraction status, left eyePresence of intraocular lensPrimary open-angle glaucoma, bilateral, mild stage Apr- 7 Gwyn Arce. [address], [place], [place], [id number], [place]. [phone] Referring Provider: Yazmin Esparza, [address], [place], [address]. [phone] [facility], [address] [place] [address], [id number] , [place] tel:[phone] [facility] Not sure if va is better or not OD (chief complaint)d enies pain or discomfort OD (chief complaint)N ot sure if va is better or not (chief complaint)d enies pain or discomfort (chief complaint) No Information Gwyn Arce. [address], [place], [place], [id number], [place]. tel:[phone] Referring Provider: Yazmin Esparza, [address], [place], [address]. [phone] [facility], [address] [place] [address], [id number] , [place] tel:[phone] [facility] No Information 7 Alan Tovar. [address] [place] [address], [id number], [place]. tel:[phone] Referring Provider: Guy Esparza, [address] [place] [address], [address]. tel:[phone] [facility], [address] [place] [address], [id number] , [place] tel:[phone] [facility] No Information 7 Alan Tovar. [address] [place] [address], [id number], [place]. tel:[phone] Referring Provider: Guy Esparza, [address] [place] [address], [address]. tel:[phone] [facility], [address] [place] [address], [id number] , tel:[phone] [facility] vision brighter OS (chief complaint)d enies pain or discomfort OS (chief complaint)b lurry vision OD (chief complaint)v ision brighter (chief complaint)d enies pain or discomfort (chief complaint)b lurry vision (chief complaint) No Information Gwyn Arce. [address], [place], [place], [id number], [place]. tel:[phone] Referring Provider: Yazmin Esparza, [address], [place], [address]. tel:[phone] [facility], [address] [place] [address], [id number] , [place] tel:[phone] [facility] No Information 7 Alan Tovar. [address] [place] [address], [id number], [place]. tel:[phone] Referring Provider: Yazmin Esparza, [address], [place], [address]. [phone] [facility], [address] [place] [address], [id number] , [place] tel:[phone] [facility] blurry vision (chief complaint)b lurry vision (chief complaint) Primary open-angle glaucoma, bilateral, mild stagePresbyopiaRe gular astigmatism, bilateral 6 Alan Tovar. [address] [place] [address], [id number], [place]. tel:[phone] Referring Provider: Guy Esparza, [address] [place] [address], [address]. tel:[phone] [facility], [address] [place] [address], [id number] , tel:[phone] [facility] dryness (chief complaint)d ryness (chief complaint) Primary open-angle glaucoma, bilateral, mild stage 6 Gwyn Arce. [address], [place], [place], [id number], [place]. [phone] Referring Provider: Yazmin Esparza, [address], [place], [address]. tel:[phone] [facility], [address] [place] [address], [id number] , [place] tel:[phone] [facility] no problems with vision and no complaints (chief complaint)n o problems with vision and no complaints (chief complaint) Primary open-angle glaucoma, mild stage 6 Oberreiter Yazmin. [address], [place], [place], [id number], [place]. tel:[phone] Referring Provider: Yazmin Esparza, [address], [place], [address]. tel:[phone] [facility], [address] [place] [address], [id number] , [place] [phone] [facility] no problems with vision and no complaints (chief complaint)n o problems with vision and no complaints (chief complaint) Primary open-angle glaucoma, mild stage 6 Oberreiter Yazmin. [address], [place], [place], [id number], [place]. tel:[phone] Referring Provider: Yazmin Esparza, [address], [place], [address]. tel:[phone] [facility], [address] [place] [address], [id number] , [place] [phone] [facility] blurry vision (chief complaint)b lurry vision (chief complaint) Primary open-angle glaucoma, moderate stageAge-related nuclear cataract, bilateralMyopia, bilateralPresbyop ia 6 Oberreiter Yazmin. [address], [place], [place], [id number], [place]. tel:[phone] Referring Provider: Yazmin Esparza, [address], [place], [address]. tel:[phone] [facility], [address] [place] [address], [id number] , [place] tel:[phone] [facility] No Information 6 Oberreiter Yazmin. [address], [place], [place], [id number], [place]. tel:[phone] Referring Provider: Yazmin Esparza, [address], [place], [address]. tel:[phone] [facility], [address] [place] [address], [id number] , tel: [phone] [facility] no problems with vision and no complaints (chief complaint)n o problems with vision and no complaints (chief complaint) Primary open angle glaucomaMild Stage Glaucoma 5 Gwyn Arce. [address], [place], [place], [id number], [place]. tel:[phone] Referring Provider: Yazmin Esparza, [address], [place], [address]. tel:[phone] [facility], [address] [place] [address], [id number] , tel: [phone] [facility] blurry vision (chief complaint)b lurry vision (chief complaint) Mild Stage GlaucomaPrimary open angle glaucomaSenile nuclear sclerosis Gwyn Arce. [address], [place], [place], [id number], [place]. tel:[phone] Referring Provider: Yazmin Esparza, [address], [place], [address]. tel:[phone] [facility], [address] [place] [address], [id number] , [place] tel: [phone] [facility] no problems with V/A and no complaints (chief complaint) Primary open angle glaucomaMild Stage Glaucoma 3 Apte Juanita. [address] [place] [address], [address], [place]. [phone] Referring Provider: Juanita Means V, [address] [place] [address], [address]. tel:[phone] [facility], [address] [place] [address], [id number] , tel:[phone] [facility] no problems with V/A and no complaints (chief complaint) Primary open angle glaucomaMild Stage Glaucoma Oct-0 4-201 3 Apte Juanita. [address] [place] [address], [facility], [place]. tel:[phone] Referring Provider: Juanita Means V, [address] [place] [address], [facility]. tel:[phone] [facility], [address] [place] [address], [id number] , [phone] [facility] no problems with V/A and no complaints (chief complaint) Primary open angle glaucomaMild Stage Glaucoma Sep-2 0-201 3 Apte Juanita. [address] [place] [address], [facility], . tel:[phone] Referring Provider: Juanita Means V, [address] [place] [address], [facility]. tel:[phone] [facility], [address] [place] [address], [id number] , tel:[phone] [facility] no problems with V/A and no complaints (chief complaint) Primary open angle glaucomaMild Stage GlaucomaSenile nuclear sclerosis Chaim-0 - 3 Brian Comer. [address] [place] [address], [address] [facility], [place], [place], [id number], [place]. tel:[phone] Referring Provider: Souleymane Haro, [address] [place] [address] [address], [place], [address]. tel:[phone] [facility], [address] [place] [address], [id number] , [place] tel:[phone] [facility] no problems with V/A and no complaints (chief complaint) Primary open angle glaucomaMild Stage Glaucoma Mar-0 7-201 3 Brian Comer. [facility], [address] [place] [address], [id number], . tel:[phone] Referring Provider: Souleymane Haro, [address] [place] [address] [address] [facility], [place], [address]. [phone] [facility], [address] [place] [address], [id number] , [phone] [facility] no problems with V/A and no complaints (chief complaint) Primary open angle glaucomaMild Stage GlaucomaSenile nuclear sclerosisVitreous degenerationOther vitreous opacities Fe 6 3 Knlaksmhi Comer. [address] [place] [address], [address] [place] [address], [address] [place] [address], . [phone] Referring Provider: Souleymane Haro, [address] [place] [address] [place] [address], [address]. tel:[phone] [facility], [address] [place] [address], [id number] , tel:[phone] [facility] no problems with V/A and no complaints (chief complaint) Vitreous degenerationOther vitreous opacitiesPrimary open angle glaucomaMild Stage GlaucomaSenile nuclear sclerosisVitreous degenerationOther vitreous opacities 2 Knlakshmi Comer. [address] [place] [address] [place] [address], [id number], [place]. [phone] Referring Provider: Souleymane Haro, [address] [place] [address] [place] [address], [address]. [phone] [facility], [address] [place] [address], [id number] , tel:[phone] [facility] no problems with V/A and no complaints (chief complaint) Primary open angle glaucomaMild Stage Glaucoma 2 Brian Comer. [address] [place] [address], [address] [place] [address], [id number], [place]. tel:[phone] Referring Provider: Souleymane Haro, [address] [facility] [address], [place], [address]. tel:[phone] [facility], [address] [place] [address], [id number] , tel:[phone] [facility] no problems with V/A and no complaints (chief complaint) Primary open angle glaucomaMild Stage Glaucoma 2 Brian Comer. [address], [place], [place], [id number], [place]. tel:[phone] Referring Provider: Souleymane Haro, [facility] [address], [place], [address]. tel:[phone] [facility], [address] [place] [address], [id number] , tel:[phone] [facility] Reports no problems with V/A and no complaints (chief complaint) Primary open angle glaucomaMODERATE STAGE GLAUCOMASenile nuclear sclerosisMILD STAGE GLAUCOMA 2 Brian Comer. [address] [facility], [address] [place] [address], [id number], [place]. tel:[phone] Referring Provider: Souleymane Haro, [facility] [address], [place], [address]. tel:[phone] [facility], [address] [place] [address], [id number] , tel:[phone] [facility] Reports no problems with V/A and no complaints (chief complaint) Primary open angle glaucomaMODERATE STAGE GLAUCOMASenile nuclear sclerosis 1 Brian Comer. [address] , [address], [place], [id number], [place]. tel:[phone] Referring Provider: Souleymane Haro, [address] [facility] [address], [place], [address]. tel:[phone] [facility], [address] [place] [address], [id number] , tel:[phone] [facility] No Information 1 Brian Comer. [address] [place] [address], [address] [facility], [place], [place], [id number], . [phone] Referring Provider: Souleymane Haro, [address] [place] [address] [address] [facility], [place], [address]. [phone] [facility], [address] [place] [address], [id number] , tel:[phone] [facility] No Information 1 Brian Comer. [address] [place] [address], [address] [facility], [place], [place], [id number], . [phone] Referring Provider: Souleymane Haro, [address] [place] [address] [address] [facility], [place], [address]. [phone] [facility], [address] [place] [address], [id number] , tel:[phone] [facility] No Information 0 Brian Comer. [address] [place] [address] [place] [address], [id number], . [phone] Referring Provider: Souleymane Haro, [address] [place] [address] [address] [facility] [facility], [place], [address]. [phone] Family History Family Member Type Diagnosis Age At Onset Mother Problem (finding) cataract Mother Problem (finding) HBP Grandmother Problem (finding) Diabetes mellitus Problem (finding) No Family hist ory of Macular Degeneration Mother Problem (finding) glaucoma Payers Payer name Insurance type Covered alliance party ID Authorluz mariaa tileidy(s) Medicare [place] [id number] [employer] [place] [id number] CI [id number] Social History Type Description Quantity Date Captured Comments Alcohol Use Details Unknown Caffeine Use Details Unknown Tobacco Use Status No Information Smoking Status No Information Sex Female Chief Complaint And Reason For Visit No Information Reason For Referral Reason For Referral No Information Plan Of Treatment Date Type Action Status Referral Referred To: Nitesh Harrell MD [address] [place], [address] Ordered: Referrals: Family Medicine. Nitesh Harrell MD. [...]
--- OUTSIDE RECORDS SUMMARY | 2024-07-08 15:15 | XMS_ITS | Continuity of Care Document ---
Author Organization [facility] [place], [facility] Address [address] [place] [address] Phone Care Team Providers Care Motor Vehicle Field Representative Name Role Phone Surgery - [place] [facility], [facility] Unavailable Unavailable Procedures Procedure Date Pre [...] Diagnoses Date Provider Providers Copied on Encounter [facility] [place], [facility], [address] [place], [place], [id number], [place] tel:[phone] [facility] No Information Surgery - [place] [facility]. [address] [place], [place], [id number], [place]. tel:[phone] Referring Provider: Guy Esparza, [address] [place], [address]. tel:[phone] [facility] [place], [facility], [address], [place], [place], [id number], [place] tel:[phone] [facility] No Information Surgery - [facility]. [address], [place], [place], [id number], [place]. tel:[phone] Referring Provider: Guy Esparza, [address] [place], [address]. tel:[phone] Family History Family Member Type Diagnosis Age At Onset No Information Payers Payer name Insurance type Covered democrat ID Authoriza tion(s) Medicare [place] MB [id number] [employer] [facility] [place] 0813 Social History Type Description Quantity Date Captured [...]
[2024-07-08 15:47] VITALS: BP 147/72; O2SAT 99
[2024-07-08 16:02] VITALS: BP 151/63; O2SAT 98
--- NOTE | 2024-07-08 16:10 | ED.GENADULT ---
HPI - General Adult General Chief complaint: Fall Stated complaint: fall-hit head-Xarelto Time Seen by Provider: 07/08/24 15:03 History of Present Illness HPI narrative: 74-year-old female presented to the emergency department for evaluation after having a ground level fall. Patient states that she was cleaning the bathroom floor after spelling some water and she slipped in the water causing her fall back onto her bottom and then her had cared with the momentum and struck the wall. Patient denies any loss of consciousness. Patient denies any neck pain or back pain. Patient is currently on Xarelto for a recent TIA Related Data Home Medications ?Medication ?Instructions ?Recorded ?Confirmed ?Last Taken ?Type latanoprost 0.005 % eye drops 1 drp EACH EYE QPM 03/31/24 06/27/24 03/30/24 History timolol maleate 0.5 % eye drops 1 drp EACH EYE QAM 03/31/24 06/27/24 03/30/24 History triamterene 37.5 1 cap PO .QD 03/31/24 06/27/24 03/30/24 History mg-hydrochlorothiazide 25 mg capsule Allergies Allergy/AdvReac Type Severity Reaction Status Date / Time Penicillins Allergy Mild Other Verified 07/08/24 15:02 Review of Systems Review of Systems: All systems reviewed & are unremarkable except as noted in HPI and below PMFSH Past Medical History Medical History (Updated 07/08/24 @ 16:13 by Mathieu Hussein MD) Cerebrovascular disease Dizziness Pneumonia Obesity Surgical History Surgical History (Updated 06/27/24 @ 15:07 by Juan Gonzalez) H/O section Family History Family History Sibling Family history of diabetes mellitus in first degree relative Father Lung cancer Mother Heart disease Social History Social History Smoking packs per day: 1 Smoking cigarettes per day: 20.0 Smoking status: Former smoker Tobacco type: cigarettes Second hand tobacco smoke exposure: Yes Alcohol intake: current Substance use: never Do You Feel Safe in your Home?: Yes Lack of Transportation: No Lack of Food: Never True Current Housing: I Do Not Have Housing Concerned About Future Housing: No Difficulty Paying Gas/Electric Bills: No Difficulty Paying for Meds: No Currently Unemployed: No Education: Decline to Answer Difficulty w/ Childcare or Family Care: No Spiritual care concerns: No Exam Narrative: APPEARANCE: Well appearing, no pain, no distress, well-nourished. HEAD: normocephalic, atraumatic. EYES: PERRLA/EOMI, conjunctivae clear. NOSE: Normal no drainage EARS:TMS clear with good light reflex. THROAT: Pharynx clear, no exudate. NECK: Supple. No adenopathy, no masses. RESPIRATORY: Airway patent, respirations nonlabored. Clear to auscultation bilaterally, no rales, rhonchi, wheezing. CARDIOVASCULAR: Regular rate and rhythm without murmurs rubs or gallops. ABDOMINAL: Soft, nontender, nondistended, normal bowel sounds MUSCULOSKELETAL: Moves all extremities. Strength/ROM intact, No edema, No calf tenderness. NEURO: Alert. Cranial nerves II through XII intact. Good gait. Good coordination SKIN: Warm, dry. Normal Color Course Vital Signs Vital signs: Vital Signs Temperature 98.6 F 07/08/24 15:06 Pulse Rate 67 07/08/24 15:06 Respiratory Rate 16 07/08/24 15:06 Blood Pressure 160/81 H 07/08/24 15:06 Pulse Oximetry 98 07/08/24 15:06 Temperature 98.6 F 07/08/24 15:06 Pulse Rate 62 07/08/24 16:22 Respiratory Rate 17 07/08/24 16:22 Blood Pressure 146/68 H 07/08/24 16:17 Pulse Oximetry 96 07/08/24 16:17 Medical Decision Making MDM Narrative Medical decision making narrative: 74-year-old female present to the emergency department for evaluation after having a head injury while on Xarelto. Head CT neck CT were negative for acute fracture dislocation Differential Diagnosis Differential Diagnosis: Subarachnoid hemorrhage, subdural hematoma Vital Signs Vital Signs: Vital Signs Temperature 98.6 F 07/08/24 15:06 Pulse Rate 67 07/08/24 15:06 Respiratory Rate 16 07/08/24 15:06 Blood Pressure 160/81 H 07/08/24 15:06 Pulse Oximetry 98 07/08/24 15:06 Temperature 98.6 F 07/08/24 15:06 Pulse Rate 62 07/08/24 16:22 Respiratory Rate 17 07/08/24 16:22 Blood Pressure 146/68 H 07/08/24 16:17 Pulse Oximetry 96 07/08/24 16:17 Imaging Data Radiologist's impression: Impressions Head CT 07/08/24 15:39 IMPRESSION: No acute intracranial process. Cervical Spine CT 07/08/24 15:42 IMPRESSION: No acute fracture or traumatic malalignment in the cervical spine. Discharge Plan Discharge Clinical Impression: Head injury Patient Disposition: Home Condition: Stable Instructions: Antibiotic Form, Head Injury (ED) Additional Instructions: Have close follow-up with your primary care physician. Continue your home medications as directed. Patient Language: Korean Prescriptions: No Action latanoprost 0.005 % drops 1 drp EACH EYE QPM timolol maleate 0.5 % drops 1 drp EACH EYE QAM triamterene-hydrochlorothiazid 37.5-25 mg capsule 1 cap PO .QD Xarelto 20 mg Tablet 20 mg PO DAILY@1700 Qty: 30 0RF aspirin [Children's Aspirin] 81 mg Tablet,Chewable 81 mg PO DAILY@0800 Qty: 30 0RF Follow-up/Referrals: PHYSICIAN NOT ON STAFF,NONSTAFF [Primary Care Provider] -
[2024-07-08 16:17] VITALS: BP 146/68; O2SAT 96
[2024-07-08 16:22] VITALS: PULSE 62; RESP 17
== END 2024-07-08 16:21 | disposition home or self-care (01) ==
PROVIDERS: Emergency Provider Emergency Medicine
DX: S09.90XA Unspecified injury of head, initial encounter (principal); I67.9 Cerebrovascular disease, unspecified; Z87.01 Personal history of pneumonia (recurrent); Z87.891 Personal history of nicotine dependence; Z79.01 Long term (current) use of anticoagulants; Z79.82 Long term (current) use of aspirin; Z79.899 Other long term (current) drug therapy; W01.198A Fall on same level from slipping, tripping and stumbling with subsequent striking against other object, initial encounter; Y93.E5 Activity, floor mopping and cleaning
CPT/HCPCS: 70450; 72125; 99284